=== PATIENT | male | born 1960 | race Caucasian/White ===

== ENCOUNTER 2020-11-24 12:28 | Emergency (ER) | payer OTHER ==
--- OUTSIDE RECORDS SUMMARY | 2020-11-24 12:31 | XMS REPORT | Continuity of Care Document ---
:1960 Author Organization [facility] t Address [address] [place] [address] Care Team Providers Name Role Phone Unavailable Unavailable Unavailable Problems Condition Condition Condition Status Onset Resolution Last Treating Co mments Source Name Details Category Date Date Treatment Clinician Date Chronic Chronic Problem Active [facility] pain Pain 2-11 Family 00:00: Practic 00 e Diabetes Diabetes Problem Active Hooker ge mellitus Mellitus 2-09 Family 00:00: Practic 00 e Senile Senile Problem Active [facility] purpura Purpura 1-12 Family 00:00: Practic 00 e Neuropathy Neuropathy Problem Active [facility] due to Due to 4-20 Family diabetes Diabetes 00:00: Practi c mellitus Mellitus 00 e Recurrent Recurrent Problem Active Alexander 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 Depressive 00:00: Pr actic episodes, Episodes, 00 e moderate Moderate Essential Essential Problem Active Alexander kimball hypertensi Hypertensi 2-06 Fa deanna on on 00:00: Practic 00 e Gastroesop Gastroesop Problem Active [facility] hageal hageal 2-06 Family reflux Reflux 00:00: Practic disease Disease 00 e Benign Benign Problem Active [facility] prostatic Prostatic 2-06 Fami ly hyperplasi Hyperplasi 00:00: Pr actic a a 00 e Chronic Chronic Problem Active [facility] low back Low Back 2-06 Family pain Pain 00:00: Practic 00 e Vertigo Vertigo Problem Active [place] 2-06 Family 00:00: Practic 00 e Hyperlipid Hyperlipid Problem Active [facility] emia due emia Due 2-06 Family to type 2 to Type 2 00:00: Prac tic diabetes Diabetes 00 e mellitus Mellitus Hypertensi Hypertensi Problem Active [facility] ve ve 8-03 Family disorder Disorder 00:00: Practi c 00 e Allergies, Adverse Reactions, Alerts Allergy Allergy Status Severity Reaction(s) Onset Inactive Treating Comm ents Source Name Type Date Date Clinician Iodine Allergy Active Severe Anaphylaxis Vill age to 1-03 Family substanc 00:00: Practic e 00 e Iodine Adverse Active Info Not [facility] Reaction Available [facility] Social History Smoking Status Start Date Stop Date Source Former Smoker [facility] Medications Ordered Filled Start Stop Current Ordering Indication Dosage Frequency Signature Comments Components Source Medication Medication Date Date Medication? Clinician (SIG) Name Name MetFORMIN MetFORMIN Yes Robert [address] [facility] HCl ER HCl ER 7-29 Don with meals Luke s - 00:00: [facility] 00 [facility] Fenofibrate Fenofibrate Yes Robert not [facility] Don defined [facility] Losartan Losartan Yes Robert not [facility] Potassium Potassium Don defined [facility] Hydrocodone Hydrocodone Yes Robert not [facility] -Acetaminop -Acetaminop Don defined [facility] fenofibrate fenofibrate No 1 Q1D fenofibrat [facility] 160 mg 160 mg e 160 mg [facility] tablet Take tablet Take tablet Practic 1 tablet 1 tablet Take 1 e every day every day tablet by oral by oral every day route. route. by oral route. fentanyl fentanyl No fentanyl Alexander jigar (PF) 10 (PF) 10 (PF) 10 Family mcg/mL in mcg/mL in mcg/mL in Practic 0.9 % 0.9 % 0.9 % e sodium sodium sodium chloride chloride chloride inject.pump inject.pump inject.pum reservoir reservoir p Take by Take by reservoir injection injection Take by route. route. injection route. Levemir Levemir No 60unit( Levemir Alexander jigar FlexTouch FlexTouch s) FlexTouch Family U-100 U-100 U-100 Practic Insulin 100 Insulin 100 Insulin e unit/mL (3 unit/mL (3 100 mL) mL) unit/mL (3 subcutaneou subcutaneou mL) s pen s pen subcutaneo Inject 60 Inject 60 us pen units by units by Inject 60 subcutaneou subcutaneou units by s route. s route. subcutaneo us route. losartan 50 losartan 50 No 1 Q1D losartan [place] mg tablet mg tablet 50 mg Fami ly Take 1 Take 1 tablet Practic tablet tablet Take 1 e every day every day tablet by oral by oral every day route. route. by oral route. meclizine meclizine No 1 TID meclizine [facility] 25 mg 25 mg 25 mg Family tablet Take tablet Take tablet Practic 1 tablet 3 1 tablet 3 Take 1 e times a day times a day tablet 3 by oral by oral times a route. route. day by oral route. meloxicam meloxicam No 1 Q1D meloxicam [facility] 15 mg 15 mg 15 mg Family tablet Take tablet Take tablet Practic 1 tablet 1 tablet Take 1 e every day every day tablet by oral by oral every day route as route as by oral needed. needed. route as needed. [place] 325 [place] 325 No 1 Q6H [place] 325 [place] mg-7.5 mg mg-7.5 mg mg-7.5 mg Family tablet Take tablet Take tablet Practic 1 tablet 1 tablet Take 1 e every 6 every 6 tablet hours by hours by every 6 oral route. oral route. hours by oral route. pantoprazol pantoprazol No 1 Q1D pantoprazo [place] e 40 mg e 40 mg le 40 mg Famil y tablet,catherine tablet,catherine tablet,del Practic yed release yed release ayed e Take 1 Take 1 release tablet tablet Take 1 every day every day tablet by oral by oral every day route. route. by oral route. pravastatin pravastatin No 1 Q1D pravastati [facility] 40 mg 40 mg n 40 mg Family tablet Take tablet Take tablet Practic 1 tablet 1 tablet Take 1 e every day every day tablet by oral by oral every day route. route. by oral route. pregabalin pregabalin No 1capsul TID pregabalin [facility] 50 mg 50 mg e(s) 50 mg Family capsule capsule capsule Practi c Take 1 Take 1 Take 1 e capsule 3 capsule 3 capsule 3 times a day times a day times a by oral by oral day by route. route. oral route. sertraline sertraline No 1 Q1D sertraline [facility] 100 mg 100 mg 100 mg Family tablet Take tablet Take tablet Practic 1 tablet 1 tablet Take 1 e every day every day tablet by oral by oral every day route. route. by oral route. tamsulosin tamsulosin No 1capsul Q1D tamsulosin [place] 0.4 mg 0.4 mg e(s) 0.4 mg Family capsule capsule capsule Practi c Take 1 Take 1 Take 1 e capsule capsule capsule every day every day every day by oral by oral by oral route. route. route. Iona Monson No 1.8mg Gideonjohngenie [place] ge 3-Irvin 0.6 3-Irvin 0.6 3-Irvin 0.6 Family mg/0.1 mL mg/0.1 mL mg/0.1 mL Practic (18 mg/3 (18 mg/3 (18 mg/3 e mL) mL) mL) subcutaneou subcutaneou subcutaneo s pen s pen us pen injector injector injector Inject 1.8 Inject 1.8 Inject 1.8 mg by mg by mg by subcutaneou subcutaneou subcutaneo s route s route us route before before before meals. meals. meals. Pregabalin Pregabalin Yes Robert [address] [facility] Losartan Losartan Yes Robert TAKE [address] [facility] Potassium Potassium Don TABLET(50 [facility] - MG) BY [facility] MOUTH l DAILY Out[facility]i ent Clinics Meloxicam Meloxicam Yes Robert TAKE [address] Don TABLET BY [facility] M[facility]TH ONCE [facility] A DAY l Outpati ent Clinics Pantoprazol Pantoprazol Yes Robert TAKE [address] [facility] e Sodium e Sodium Don TABLET(40 L ukes - MG) BY Memoria MOUTH l TWICE Outpati DAILY ent Clinics Victoza Victoza Yes Robert not [facility] Don defined [facility] Tamsulosin Tamsulosin Yes Robert not [facility] HCl HCl Don defined [facility] Fenofibrate Fenofibrate Yes Robert TAKE [address] [facility] Don TABLET(160 [facility] - MG) BY Memoria MOUTH l DAILY WITH Outpati A MEAL ent Clinics Tamsulosin Tamsulosin Yes Robert TAKE [address] [facility] HCl HCl Don CAPSULE BY [facility] M[facility]TH [facility] EVERY DAY l Outpati ent Clinics Morphine Morphine Yes [facility] as [facility] Sulfate Sulfate Don directed [facility] Levemir Levemir Yes Robert as [facility] FlexTouch FlexTouch Don directed [facility] Sertraline Sertraline Yes Robert not [facility] HCl HCl Don defined [facility] Meclizine Meclizine Yes Robert not [facility] HCl HCl Don defined [facility] Pantoprazol Pantoprazol Yes Robert not [facility] e Sodium e Sodium Don defined [facility] Pravastatin Pravastatin Yes Robert not [facility] Sodium Sodium Don defined [facility] Meloxicam Meloxicam Yes Robert not [facility] Don defined [facility] Immunizations Ordered Immunization Filled Immunization Date Status Commen ts Source Name Name influenza, influenza, 2018-09-12 [facility] injectable, injectable, 00:00:00 Practice quadrivalent quadrivalent Procedures This patient has no known procedures. Plan of Care Planned Activity Planned Date Details Comments Source Future Appointment 2021-01-19 00:00:00 [facility] [address]; [address] [address], [place] [id number] [place] [address] Encounters Start End Encounter Admission Attending Care Care Encounter Source Date/Time Date/Time Type Type Clinicians Facility Department ID 2020-11-05 2020-11-05 [facility] [id number] 2020-10-21 2020-10-21 Blanquita [facility] [place] - [id number] [facility] illage 00:00:00 00:00:00 [facility] cheryl o, 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 2020-10-21 2020-10-21 Outpatient [facility] [id number] [facility] 2020-08-22 2020-08-22 Out[facility] [id number] [facility] 2020-08-04 2020-08-04 Out[facility] [id number] [facility] 2020-07-16 2020-07-16 Out[facility] [id number] [facility] 2020-07-10 2020-07-10 Out[facility] [id number] [facility] 2020-06-25 2020-06-25 Outpatient [facility] [id number] [facility] 2020-06-16 2020-06-16 [facility] [id number] [facility] 2020-04-10 2020-04-10 [facility] [id number] [facility] 13:26:00 13:26:00 t [employer] [facility] Family Medicine l Medicine Outpati ent Clinics 2020-04-09 2020-04-09 [facility] [id number] 10:15:00 10:15:00 t [employer] [facility] Family Medicine l Medicine Outpati ent Clinics 2020-02-19 2020-02-19 [facility] [id number] 10:18:00 10:18:00 t [employer] [facility] Family Medicine l Medicine Outpati ent Clinics 2020-02-11 2020-02-11 [facility] [id number] 09:41:00 09:41:00 t [employer] [facility] Medicine l Medicine Outpati ent Clinics 2020-01-24 2020-01-24 [facility] [id number] 11:35:00 11:35:00 t [employer] 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 2019-12-11 2019-12-11 [facility] [id number] 09:00:00 09:00:00 [employer] [facility] Clinics Results This patient has no known results.
[2020-11-24] MEDS ORDERED: NA CHLORIDE 0.9% 500 ML ONE (15:01)
[2020-11-24] MEDS ORDERED: MORPHINE 4 MG/ML SYR ONE ×2 (15:01→16:19)
[2020-11-24] MEDS ORDERED: ONDANSETRON 4 MG/2 ML VIAL ONE (15:01)
[2020-11-24 15:37] LABS: Absolute Lymphocytes (CBC) 1.3 K/uL (0.7-4.9); Basophils % 0.4 % (0-1.3); Hematocrit 34.1 % (39.6-49.0); Lymphocytes % 15.9 % (15.3-44.8); MPV 9.3 fL (7.6-11.3); RBC Red Blood Cell Count 3.84 M/uL (4.33-5.43)
[2020-11-24 15:49] LABS: ALT/SGPT 33 U/L (12-78); AST/SGOT 31 U/L (15-37); Albumin 3.6 g/dL (3.4-5.0); Alkaline Phosphatase 54 U/L (45-117); BUN Blood Urea Nitrogen 25 mg/dL (7-18); Bicarbonate 24 mmol/L (21-32); Bilirubin Direct < 0.1 mg/dL (0-0.2); Bilirubin Total 0.2 mg/dL (0.2-1.0); Glucose Level 125 mg/dL (74-106); Lipase 150 U/L (73-393); Potassium 4.7 mmol/L (3.5-5.1); Protein, Total 7.7 g/dL (6.4-8.2); Sodium Level 142 mmol/L (136-145)
--- NOTE | 2020-11-24 17:52 | RAD REPORT ---
EXAM DESCRIPTION: CT - Abdomen Pelvis Wo Contrast - 11/24/2020 5:16 pm CLINICAL HISTORY: Abdominal pain COMPARISON: 2014 TECHNIQUE: Computed axial tomography of the abdomen and pelvis was obtained. IV was not requested. O ral contrast was given. Coronal reconstructions performed. All CT scans are performed using dose optimization technique as appropriate and may include automated exposure control or mA/KV adjustment according to patient size. FINDINGS: The evaluation of solid organs and vessels is limited secondary to the lack of contrast a dministration. The liver, spleen, pancreas, adrenals and right kidney grossly normal. A 2 millimeter calculus distal left ureter with mild left hydronephrosis Neurostimulator device in place Diverticula stem from the colon. Mild to moderate stranding adjacent to sigmoid colon Small inguinal hernias. Small umbilical hernia IMPRESSION: 2 millimeter calculus distal left ureter resulting in mild left hydronephrosis Mild to moderate sigmoid diverticulitis
--- NOTE | 2020-11-24 18:48 | EDPHYS ---
Physician Documentation [facility] Name: Vikash Forbes Jr Age: 60 yrs Sex: Male : 1960 Arrival Date: 11/24/2020 Time: 12:31 Bed 26 Private MD: Arian Counts Include 234 Beds At [facility] ED Physician Evan Turcios HPI: 11/24 14:30 This 60 yrs old Male presents to ER via Wheelchair with complaints of cp Abdominal Pain. 14:30 The patient presents with abdominal pain in the left upper quadrant, right lower cp quadrant, in the left lower quadrant. Onset: The symptoms/episode began/occurred 4 day(s) ago, and became worse today. The symptoms radiate to left back. Associated signs and symptoms: Pertinent positives: blood in stools, diarrhea, Pertinent negatives: constipation, testicular pain, vomiting. The symptoms are described as dull. Historical: - Allergies: 13:34 Iodex; ca1 13:34 Iodinated Contrast Media - IV Dye; ca1 - PMHx: 13:34 Hypertension; Diabetes - IDDM; back pain; lymphadema; ca1 13:34 High Cholesterol; ca1 - PSHx: 13:34 Heart stents; ca1 - Immunization history:: Flu vaccine is not up to date. - Social history:: Smoking status: Patient denies any tobacco usage or history of. ROS: 14:35 Constitutional: Negative for body aches, chills, fever, poor PO intake. cp 14:35 Eyes: Negative for injury, pain, redness, and discharge. cp 14:35 ENT: Negative for ear pain, sore throat, difficulty swallowing, difficulty handling secretions. 14:35 Cardiovascular: Negative for chest pain. 14:35 Respiratory: Negative for cough, shortness of breath, wheezing. 14:35 Abdomen/GI: Positive for abdominal pain, diarrhea, rectal bleeding, Negative for vomiting, constipation, black/tarry stool. 14:35 Back: Positive for radiated pain. 14:35 : Negative for urinary symptoms, testicular pain 14:35 Neuro: Negative for altered mental status, headache, weakness. 14:35 All other systems are negative. Exam: 14:40 Constitutional: The patient appears in no acute distress, alert, awake, cp non-diaphoretic, non-toxic, well developed, well nourished. 14:40 Head/Face: Normocephalic, atraumatic. cp 14:40 Eyes: Periorbital structures: appear normal, Conjunctiva: normal, no exudate, no injection, Sclera: no appreciated abnormality, Lids and lashes: appear normal, bilaterally. 14:40 ENT: External ear(s): are unremarkable, Nose: is normal, Mouth: Lips: moist, Oral mucosa: moist, Posterior pharynx: Airway: no evidence of obstruction, patent. 14:40 Chest/axilla: Inspection: normal, Palpation: is normal, no crepitus, no tenderness. 14:40 Cardiovascular: Rate: normal, Rhythm: regular, JVD: is not appreciated. 14:40 Respiratory: the patient does not display signs of respiratory distress, Respirations: normal, no use of accessory muscles, no retractions, labored breathing, is not present, Breath sounds: are clear throughout, no decreased breath sounds, no stridor, no wheezing. 14:40 Abdomen/GI: Inspection: scar(s), midline, Bowel sounds: active, all quadrants, Palpation: soft, in all quadrants, moderate abdominal tenderness, in all quadrants, rebound tenderness, is not appreciated, voluntary guarding, is elicited in all quadrants. 14:40 Back: pain, that is mild, ROM is normal. 14:40 Skin: no rash present. Vital Signs: 13:30 BP 117 / 79; Pulse 77; Resp 16 S; Temp 97.6(TE); Pulse Ox 100% on R/A; Weight 99.79 kg ca1 (R); Height 5 ft. 11 in. (180.34 cm) (R); Pain 10/10; 14:00 BP 137 / 84; Pulse 87; Resp 16; Pulse Ox 100% ; zb 15:00 BP 148 / 95; Pulse 87; Resp 17; Pulse Ox 100% on R/A; zb 15:54 BP 122 / 63; Pulse 79; Resp 16; Pulse Ox 100% on R/A; zb 17:30 BP 153 / 98; Pulse 83; Resp 16; Pulse Ox 100% on R/A; zb 18:59 BP 130 / 84; Pulse 73; Resp 16; Pulse Ox 100% on R/A; zb 19:30 BP 125 / 87; Pulse 87; Resp 16; Pulse Ox 100% on R/A; zb 20:46 BP 108 / 83; Pulse 86; Resp 16; Pulse Ox 100% on R/A; zb 13:30 Body Mass Index 30.68 (99.79 kg, 180.34 cm) ca1 MDM: 14:22 Patient medically screened. cp 15:00 Differential diagnosis: diverticulitis, non-specific abd pain, pancreatitis, cp Prostatitis, Ureterolithiasis, urinary tract infection. 18:39 Data reviewed: vital signs, nurses notes, lab test result(s), radiologic studies, CT cp scan. Counseling: I had a detailed discussion with the patient and/or guardian regarding: the historical points, exam findings, and any diagnostic results supporting the discharge/admit diagnosis, lab results, radiology results, the need for outpatient follow up, a professor of management, a urologist, to return to the emergency department if symptoms worsen or persist or if there are any questions or concerns that arise at home. 11/24 14:23 Order name: Basic Metabolic Panel cp 11/24 14:23 Order name: CBC with Diff; Complete Time: 15:53 cp 11/24 15:54 Interpretation: Normal except: RBC 3.84; HGB 11.6; HCT 34.1; GARY% 78.3. cp 11/24 14:23 Order name: Hepatic Function; Complete Time: 15:53 cp 11/24 15:54 Interpretation: Normal except: GLOB 4.1; A/G 0.9. cp 11/24 14:23 Order name: Lipase; Complete Time: 15:53 cp 11/24 14:24 Order name: Basic Metabolic Panel; Complete Time: 15:53 EDMS 11/24 15:54 Interpretation: Normal except: CL 111; GLUC 125; BUN 25; CRE 1.50; GFR 48. cp 11/24 18:07 Order name: Urine Microscopic Only cp 11/24 14:48 Order name: Abdomen ; Complete Time: 18:04 EDMS 11/24 18:07 Order name: Urine Microscopic Only EDMS 11/24 14:23 Order name: IV Saline Lock; Complete Time: 15:01 cp 11/24 14:23 Order name: Labs collected and sent; Complete Time: 15:01 cp 11/24 18:07 Order name: Urine Dipstick-Ancillary (obtain specimen); Complete Time: 20:45 cp Administered Medications: 15:01 Drug: NS 0.9% 500 ml Route: IV; Rate: bolus; Site: right antecubital; zb 15:52 Follow up: Response: No adverse reaction; IV Status: Completed infusion; IV Intake: zb 500ml 15:01 Drug: Zofran (Ondansetron) 4 mg Route: IVP; Site: right antecubital; zb 15:53 Follow up: Response: No adverse reaction zb 15:01 Drug: morphine 4 mg Route: IVP; Site: right antecubital; zb 15:53 Follow up: Response: No adverse reaction; Pain is unchanged, physician notified; RASS: zb Restless (+1) 16:07 Drug: morphine 4 mg {Note: rass 0.} Route: IVP; Site: right antecubital; zb 16:30 Follow up: Response: No adverse reaction; Pain is decreased; RASS: Alert and Calm (0) zb 18:57 Drug: metroNIDAZOLE 500 mg Volume: 100 ml; Route: IVPB; Infused Over: 30 mins; Site: b right antecubital; 19:28 Follow up: Response: No adverse reaction; IV Status: Completed infusion; IV Intake: zb 100ml 18:57 Drug: Rocephin - (cefTRIAXone) 1 grams Route: IVPB; Infused Over: 30 mins; Site: right zb antecubital; 19:20 Follow up: Response: No adverse reaction; IV Status: Completed infusion; IV Intake: 20mlzb 18:58 Drug: Flomax 0.4 mg Route: PO; zb 19:28 Follow up: Response: No adverse reaction zb 19:27 Drug: Magnesium Sulfate 1 grams Route: IVPB; Infused Over: 1 hrs; Site: right z antecubital; 20:45 Follow up: Response: No adverse reaction; IV Status: Completed infusion; IV Intake: zb 100ml Disposition: 11/25 09:42 Co-signature as Attending Physician, Evan Turcios MD I agree with the assessment and ross plan of care. Disposition: 11/24/20 18:48 Discharged to Home. Impression: Calculus of ureter - left, Diverticulitis of large intestine without perforation or abscess with bleeding. - Condition is Stable. - Discharge Instructions: High-Fiber Diet, Diverticulitis, Kidney Stones, Renal Colic. - Prescriptions for Tylenol- Codeine #3 300-30 mg Oral Tablet - take 2 tablets by ORAL route every 8-12 hours As needed; 20 tablet. Zofran 4 mg Oral Tablet - take 1 tablet by ORAL route every 12 hours As needed; 20 tablet. Flomax 0.4 mg Oral Capsule, Sust. Release 24 hr - take 1 capsule by ORAL route once daily As needed 1/2 hour following the same meal each day; 5 capsule. Cipro 500 mg Oral Tablet - take 1 tablet by ORAL route every 12 hours for 10 days; 20 tablet. Metronidazole 500 mg Oral Tablet - take 1 tablet by ORAL route every 8 hours; 30 tablet. - Medication Reconciliation Form, Thank You Letter, Antibiotic Education, Prescription Opioid Use form. - Follow up: Anjum Bob MD; When: 2 - 3 days; Reason: diverticulitis. Follow up: Mitesh Gordillo MD; When: 2 - 3 days; Reason: left ureter stone. - Problem is new. - Symptoms have improved. Signatures: Dispatcher [employer] [facility] Evan Turcios MD MD cha Page, Corey, PA PA cp Acob, Cheryl, RN RN ca1 Brown, Zipporah, RN RN zb Corrections: (The following items were deleted from the chart) 11/24 14:48 14:40 Abdomen Pelvis W Con+[id number].RAD.BRZ ordered. [facility] 20:47 18:48 11/24/2020 18:48 Discharged to Home. Impression: Calculus of ureter - left; zb Diverticulitis of large intestine without perforation or abscess with bleeding. Condition is Stable. Forms are Medication Reconciliation Form, Thank You Letter, Antibiotic Education, Prescription Opioid Use. Follow up: Anjum Bob; When: 2 - 3 days; Reason: diverticulitis. Follow up: Mitesh Gordillo; When: 2 - 3 days; Reason: left ureter stone. Problem is new. Symptoms have improved. cp
--- NOTE | 2020-11-24 18:48 | ER ---
Nurse's Notes [facility] Name: Vikash Forbes Jr Age: 60 yrs Sex: Male : 1960 Arrival Date: 11/24/2020 Time: 12:31 Bed 26 Private MD: Robert Don Diagnosis: Calculus of ureter-left;Diverticulitis of large intestine without perforation or abscess with bleeding Presentation: 11/24 13:30 Chief complaint: Patient states: Lower abdominal pain, from L to R, x 3 - 4 days [employer]. ca1 Worse since 2 days ago. Denies N/V/D. Pain is constant. Pt grimacing, moaning in pain in triage. Coronavirus screen: Client denies travel out of the [place] in the last 14 days. At this time, the client does not indicate any symptoms associated with coronavirus-19. Ebola Screen: Patient negative for fever greater than or equal to 101.5 degrees Fahrenheit, and additional compatible Ebola Virus Disease symptoms Patient denies exposure to infectious person. Patient denies travel to an Ebola-affected area in the 21 days before illness onset. No symptoms or risks identified at this time. Initial Sepsis Screen: Does the patient meet any 2 criteria? No. Patient's initial sepsis screen is negative. Does the patient have a suspected source of infection? No. Patient's initial sepsis screen is negative. Risk Assessment: Do you want to hurt yourself or someone else? Patient reports no desire to harm self or others. Onset of symptoms was November 24, 2020. 13:30 Method Of Arrival: Wheelchair ca1 13:30 Acuity: ALMA 2 ca1 Historical: - Allergies: 13:34 Iodex; ca1 13:34 Iodinated Contrast Media - IV Dye; ca1 - PMHx: 13:34 Hypertension; Diabetes - IDDM; back pain; lymphadema; ca1 13:34 High Cholesterol; ca1 - PSHx: 13:34 Heart stents; ca1 - Immunization history:: Flu vaccine is not up to date. - Social history:: Smoking status: Patient denies any tobacco usage or history of. Screenin:58 Abuse screen: Denies threats or abuse. Denies injuries from another. Nutritional zb screening: No deficits noted. Tuberculosis screening: No symptoms or risk factors identified. Fall Risk None identified. Assessment: 14:15 Reassessment: ECP at bedside. zb 14:30 General: Appears in no apparent distress. uncomfortable, obese, Behavior is zb cooperative. Pain: Complains of pain in left upper quadrant and left lower quadrant Pain currently is 10 out of 10 on a pain scale. Quality of pain is described as aching, Noted to be grimacing, guarding. Neuro: Level of Consciousness is awake, alert, obeys commands, Oriented to person, place, time, situation. Cardiovascular: Patient's skin is warm and dry. Respiratory: Airway is patent Respiratory effort is even, unlabored, Respiratory pattern is regular, symmetrical. GI: Abdomen is round obese, Bowel sounds hypoactive in right upper quadrant, left upper quadrant, right lower quadrant and left lower quadrant Abdomen is tender to palpation in left upper quadrant and left lower quadrant Reports cramping, Patient currently denies diarrhea, nausea. : No signs and/or symptoms were reported regarding the genitourinary system. Derm: Skin is intact, is healthy with good turgor, Skin is dry, Skin is normal, Skin temperature is warm. Musculoskeletal: Range of motion: intact in all extremities. 15:57 Reassessment: Patient appears in no apparent distress at this time. Patient and/or zb family updated on plan of care and expected duration. Pain level reassessed. patient states he is still in a lot of pain. notified ECP. 16:30 Reassessment: Patient appears in no apparent distress at this time. Patient and/or zb family updated on plan of care and expected duration. Pain level reassessed. Patient is alert, oriented x 3, equal unlabored respirations, skin warm/dry/pink. patient is room not changes at this time. 17:30 Reassessment: Patient appears in no apparent distress at this time. Patient and/or zb family updated on plan of care and expected duration. Pain level reassessed. Patient is alert, oriented x 3, equal unlabored respirations, skin warm/dry/pink. ECP at bedside discussing care. 18:59 Reassessment: d/c pending completion of IV medications. zb 19:30 Reassessment: Patient appears in no apparent distress at this time. Patient and/or zb family updated on plan of care and expected duration. Pain level reassessed. Patient is alert, oriented x 3, equal unlabored respirations, skin warm/dry/pink. IV fluids infusing. 20:45 Reassessment: IV medication completed. d/c instructions given. gait even and steady zb upon discharge. Vital Signs: 13:30 BP 117 / 79; Pulse 77; Resp 16 S; Temp 97.6(TE); Pulse Ox 100% on R/A; Weight 99.79 kg ca1 (R); Height 5 ft. 11 in. (180.34 cm) (R); Pain 10/10; 14:00 BP 137 / 84; Pulse 87; Resp 16; Pulse Ox 100% ; zb 15:00 BP 148 / 95; Pulse 87; Resp 17; Pulse Ox 100% on R/A; zb 15:54 BP 122 / 63; Pulse 79; Resp 16; Pulse Ox 100% on R/A; zb 17:30 BP 153 / 98; Pulse 83; Resp 16; Pulse Ox 100% on R/A; zb 18:59 BP 130 / 84; Pulse 73; Resp 16; Pulse Ox 100% on R/A; zb 19:30 BP 125 / 87; Pulse 87; Resp 16; Pulse Ox 100% on R/A; zb 20:46 BP 108 / 83; Pulse 86; Resp 16; Pulse Ox 100% on R/A; zb 13:30 Body Mass Index 30.68 (99.79 kg, 180.34 cm) ca1 ED Course: 12:31 Patient arrived in ED. am2 12:32 Robert Don DO is Private Physician. am2 13:32 Triage completed. ca1 13:34 Arm band placed on right wrist. ca1 14:09 Evan Johnson PA is PHCP. cp 14:09 Evan Turcios MD is Attending Physician. cp 14:15 Linn Degroot, WENDY is Primary Nurse. zb 15:59 Patient has correct armband on for positive identification. 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 Pulse zb ox on. NIBP on. Door closed. Noise minimized. 15:59 Bed in low position. Call light in reach. Side rails up X 1. zb 17:16 Abdomen In Process Unspecified. EDMS 18:47 Anjum Bob MD is Referral Physician. cp 18:47 Mitesh Gordillo MD is Referral Physician. cp 20:47 No provider procedures requiring assistance completed. IV discontinued, intact, zb bleeding controlled, No redness/swelling at site. Pressure dressing applied. Administered Medications: 15:01 Drug: NS 0.9% 500 ml Route: IV; Rate: bolus; Site: right antecubital; zb 15:52 Follow up: Response: No adverse reaction; IV Status: Completed infusion; IV Intake: zb 500ml 15:01 Drug: Zofran (Ondansetron) 4 mg Route: IVP; Site: right antecubital; zb 15:53 Follow up: Response: No adverse reaction zb 15:01 Drug: morphine 4 mg Route: IVP; Site: right antecubital; zb 15:53 Follow up: Response: No adverse reaction; Pain is unchanged, physician notified; RASS: zb Restless (+1) 16:07 Drug: morphine 4 mg {Note: rass 0.} Route: IVP; Site: right antecubital; zb 16:30 Follow up: Response: No adverse reaction; Pain is decreased; RASS: Alert and Calm (0) zb 18:57 Drug: metroNIDAZOLE 500 mg Volume: 100 ml; Route: IVPB; Infused Over: 30 mins; Site: zb right antecubital; 19:28 Follow up: Response: No adverse reaction; IV Status: Completed infusion; IV Intake: zb 100ml 18:57 Drug: Rocephin - (cefTRIAXone) 1 grams Route: IVPB; Infused Over: 30 mins; Site: right zb antecubital; 19:20 Follow up: Response: No adverse reaction; IV Status: Completed infusion; IV Intake: 20mlzb 18:58 Drug: Flomax 0.4 mg Route: PO; zb 19:28 Follow up: Response: No adverse reaction zb 19:27 Drug: Magnesium Sulfate 1 grams Route: IVPB; Infused Over: 1 hrs; Site: right zb antecubital; 20:45 Follow up: Response: No adverse reaction; IV Status: Completed infusion; IV Intake: zb 100ml Intake: 15:52 IV: 500ml; Total: 500ml. zb 19:20 IV: 20ml; Total: 520ml. zb 19:28 IV: 100ml; Total: 620ml. zb 20:45 IV: 100ml; Total: 720ml. zb Outcome: 18:48 Discharge ordered by . cp 20:47 Discharged to home ambulatory. zb 20:47 Condition: stable 20:47 Discharge instructions given to patient, Instructed on discharge instructions, follow up and referral plans. medication usage, Demonstrated understanding of instructions, follow-up care, medications, Prescriptions given X 4. 20:47 Patient left the ED. zb Signatures: Dispatcher [employer] EDMS Evan Johnson PA PA cp Moreno, Amanda am2 Mary Sutherland RN RN ca1 Linn Degroot RN RN zb Corrections: (The following items were deleted from the chart) 16:07 16:07 morphine 4 mg IVP in right antecubital zb zb
[2020-11-24] MEDS ORDERED: CEFTRIAXONE/SWI 1gm 1 GM/10 ML SYR ONE (18:59)
[2020-11-24] MEDS ORDERED: TAMSULOSIN 0.4 MG SR CAP ONE (18:59)
[2020-11-24] MEDS ORDERED: METRONIDAZOLE 500mg IVPB 500 MG/100 ML BAG IV ONE (18:59)
[2020-11-24] MEDS ORDERED: MAGNESIUM SULFATE 1 gm IVPB 1 GM/100 ML BAG IV ONE (18:59)
[2020-11-24 21:51] LABS: Urine Bacteria NONE SEEN /HPF (NONE SEEN); Urine RBC <5 /HPF (NONE SEEN)
[2020-11-25 01:21] VITALS: TEMP 97.6; O2SAT 100
[2020-11-25 01:34] VITALS: BP 108/83
== END 2020-11-24 20:47 | disposition home or self-care (01) ==
LOC: ER 12:28
DX: N13.2 Hydronephrosis with renal and ureteral calculous obstruction (principal); K57.33 Diverticulitis of large intestine without perforation or abscess with bleeding; E11.9 Type 2 diabetes mellitus without complications; Z79.4 Long term (current) use of insulin; I10 Essential (primary) hypertension; E78.00 Pure hypercholesterolemia, unspecified; Z95.5 Presence of coronary angioplasty implant and graft
CPT/HCPCS: 85025; 80048; 36415; 80076; 81015; 83690; 74176; J3475; J0696; J7040; J2405; 96361; 96365; 96367; 96368; 96375; 99284

== ENCOUNTER 2022-06-13 12:54 | Emergency (ER) | payer OTHER ==
--- OUTSIDE RECORDS SUMMARY | 2022-06-13 12:57 | XMS REPORT | Continuity of Care Document ---
:1960 Author Organization [facility] t Address [address] [place] [address] Care Team Providers Name Role Phone Allyn Sanchez Attending Clinician Unavailable Arturo Riggs Attending Clinician Unavailable Robert Don Attending Clinician Unavailable Cleveland Arreaga Attending Clinician Unavailable Buddy_R Attending Clinician Unavailable GAYLORD_S Attending Clinician Unavailable Rashmi-Mbayo_A_AH Attending Clinician Unavailable Physician, No Primary or Family Admitting Clinician Unavaila ble Adams_R Admitting Clinician Unavailable GAYLORD_S Admitting Clinician Unavailable Rashmi-Mbayo_A_AH Admitting Clinician Unavailable Payers Payer Name Policy Type Policy Number Effective Date Expiration Date S katharina [facility] [id number] 2021 (MEDICARE 00:00:00 REPLACEMENT HMO) [employer] [place] - [id number] 2019 AMBROCIOMARIA E (MEDICARE 00:00:00 REPLACEMENT/ADVANTA GE - HMO) Problems Condition Condition Condition Status Onset Resolution Last Treating Co mments Source Name Details Category Date Date Treatment Clinician Date Chronic Chronic Problem Active [place] pain Pain 2-11 Family 00:00: Practic 00 e Diabetes Diabetes Problem Active [place] [facility] mellitus Mellitus 2-09 Family 00:00: Practic 00 e Senile Senile Problem Active [facility] purpura Purpura 1-12 Family 00:00: Practic 00 e Neuropathy Neuropathy Problem Active [place] [facility] due to Due to 4-20 Family diabetes Diabetes 00:00: Practi c mellitus Mellitus 00 e Benign Benign Problem Active [facility] prostatic Prostatic 2-06 Fami ly hyperplasi Hyperplasi 00:00: Pr actic a a 00 e Chronic Chronic Problem Active [facility] low back Low Back 2-06 Family pain Pain 00:00: Practic 00 e Vertigo Vertigo Problem Active [facility] 2-06 Family 00:00: Practic 00 e Hyperlipid Hyperlipid Problem Active [facility] emia due emia Due 2-06 Family to type 2 to Type 2 00:00: Prac tic diabetes Diabetes 00 e mellitus Mellitus Recurrent Recurrent Problem Active Alexander 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 Depressive 00:00: Pr actic episodes, Episodes, 00 e moderate Moderate Essential Essential Problem Active Alexander kimball hypertensi Hypertensi 2-06 Fa deanna on on 00:00: Practic 00 e Gastroesop Gastroesop Problem Active [facility] hageal hageal 2-06 Family reflux Reflux 00:00: Practic disease Disease 00 e Hypertensi Hypertensi Problem Active [facility] ve ve 8-03 Family disorder Disorder 00:00: Practi c 00 e Allergies, Adverse Reactions, Alerts Allergy Allergy Status Severity Reaction(s) Onset Inactive Treating Comm ents Source Name Type Date Date Clinician iodine DA Active SV RASH,SOB [facility] 3-07 Clear 00:00: [place] 00 [facility] Iodine Allergy Active Severe Anaphylaxis Vill age to 1-03 Family substanc 00:00: Practic e 00 e Iodine Adverse Active Info Not [facility] Smoking Status Start Date Stop Date Source Former [facility]oker [facility] Medications Ordered Filled Start Stop Current Ordering Indication Dosage Frequency Signature Comments Components Source Medication Medication Date Date Medication? Clinician (SIG) Name Name MetFORMIN MetFORMIN Yes Robert 2 tabs Common HCl ER HCl ER 7-29 Don with meals Spir it 00:00: - [facility] Pregabalin Pregabalin Yes Robert 1 capsule Common Don [facility] Losartan Losartan Yes Robert TAKE 1 Com mon Potassium Potassium Don TABLET(50 Spirit MG) BY - [facility] DAILY [facility] Meloxicam Meloxicam Yes Robert TAKE 1 C ommon Don TABLET BY Spirit MOUTH ONCE - [facility] A DAY [facility] Pantoprazol Pantoprazol Yes Robert TAKE 1 Common e Sodium e Sodium Don TABLET(40 S pirit MG) BY - [facility] TWICE [facility] Victoza Victoza Yes Robert not Common Don defined [facility] Tamsulosin Tamsulosin Yes Robert not C ommon HCl HCl Don defined [facility] Fenofibrate Fenofibrate Yes Robert TAKE 1 Common Don TABLET(160 Spirit MG) BY - [facility] DAILY WITH [facility] A [facility] Tamsulosin Tamsulosin Yes Robert TAKE 1 Common HCl HCl Don CAPSULE BY [facility] - [facility] EVERY DAY [facility] Morphine Morphine Yes Robert as Commo n Sulfate Sulfate Don directed Spir it [facility] Levemir Levemir Yes Robert as Common FlexTouch FlexTouch Don directed [facility] Sertraline Sertraline Yes Robert not C ommon HCl HCl Don defined [facility] Meclizine Meclizine Yes Robert not Com mon HCl HCl Don defined [facility] Pantoprazol Pantoprazol Yes Robert not Common e Sodium e Sodium Don defined Spi rit [facility] Pravastatin Pravastatin Yes Robert not Common Sodium Sodium Don defined [facility] Meloxicam Meloxicam Yes Robert not Com mon Don defined [facility] Fenofibrate Fenofibrate Yes Robert not Common Don defined [facility] Losartan Losartan Yes Robert not Commo n Potassium Potassium Don defined pirit [facility] Hydrocodone Hydrocodone Yes Robert not Common -Acetaminop -Acetaminop Don defined [facility] hen hen [facility] fenofibrate fenofibrate No 1 Q1D fenofibrat [facility] 160 mg 160 mg e 160 mg Family tablet Take tablet Take tablet Practic 1 tablet 1 tablet Take 1 e every day every day tablet by oral by oral every day route. route. by oral route. fentanyl fentanyl No fentanyl Alexander kimball (PF) 10 (PF) 10 (PF) 10 Family [...] route. meclizine meclizine No 1 TID meclizine [facility] 25 mg 25 mg 25 mg Family tablet Take tablet Take tablet Practic 1 tablet 3 1 tablet 3 Take 1 e times a day times a day tablet 3 by oral by oral times a route. route. day by oral route. meloxicam meloxicam No 1 Q1D meloxicam [facility] 15 mg 15 mg 15 mg Family tablet Take tablet Take tablet Practic 1 tablet 1 tablet Take 1 e every day every day tablet by oral by oral every day route as route as by oral needed. needed. route as needed. [place] 325 [place] 325 No 1 Q6H [place] 325 [place] mg-7.5 mg mg-7.5 mg mg-7.5 [...] route. pravastatin pravastatin No 1 Q1D pravastati [facility] 40 mg 40 mg n 40 mg Family tablet Take tablet Take tablet Practic 1 tablet 1 tablet Take 1 e every day every day tablet by oral by oral every day route. route. by oral route. pregabalin pregabalin No 1capsul TID pregabalin [facility] 50 mg 50 mg e(s) 50 mg Family capsule capsule capsule Practi c Take 1 Take 1 Take 1 e capsule 3 capsule 3 capsule 3 times a day times a day times a by oral by oral day by route. route. oral route. sertraline sertraline No 1 Q1D sertraline [facility] 100 mg 100 mg 100 mg Family tablet Take tablet Take tablet Practic 1 tablet 1 tablet Take 1 e every day every day tablet by oral by oral every day route. route. by oral route. tamsulosin tamsulosin No 1capsul Q1D tamsulosin [facility] 0.4 mg 0.4 mg e(s) 0.4 mg Family capsule capsule capsule Practi c Take 1 Take 1 Take 1 e capsule capsule capsule every day every day every day by oral by oral by oral route. route. route. Victoza Victoza No 1.8mg Victoza [place] [facility] 3-Irvin 0.6 3-Irvin 0.6 3-Irvin [...] route before before before meals. meals. meals. Immunizations Ordered Immunization Filled Immunization Date Status Commen ts Source Name Name influenza, influenza, 2018-09-12 Completed [facility] injectable, injectable, 00:00:00 Practice quadrivalent quadrivalent Procedures This patient has no known procedures. Plan of Care Planned Activity Planned Date Details Comments Source Instructions [facility] Encounters Start End Encounter Admission Attending Care Care Encounter Source Date/Time Date/Time Type Type Clinicians Facility Department ID 2021-11-05 Outpatient Sanchez, STLMLC STLMLC [id number] Common 14:09:01 Allyn Sp[facility] 2021-10-07 Outpatient Keely, STLMLC STLMLC Common 13:23:55 Arturo [facility] 2021-10-07 Outpatient Don, STLMLC STLMLC [id number] Common 13:01:37 Robert [id number] [facility] 2021-10-07 Outpatient Don, STLMLC STLMLC [id number] Common 12:59:20 Robert 60433 [facility] 2021-10-07 Outpatient Don, STLMLC STLMLC [id number] Common 12:53:43 Robert 15901 [facility] 2021-10-07 Outpatient Don, STLMLC STLMLC [id number] Common 12:32:50 Robert 81181 [facility] 2021-10-07 Outpatient Don, STLMLC STLMLC [id number] Common 12:28:53 Robert [id number] [facility] 2021-10-07 Outpatient Don, STLMLC STLMLC [id number] Common 11:59:48 Robert 32060 [facility] 2021-10-07 Outpatient Don, STLMLC STLMLC [id number] Common 11:55:12 Roebrt 52984 [facility] 2021-10-07 Outpatient Don, STLMLC STLMLC [id number] Common 11:53:59 Robert 69574 [facility] 2021-10-07 Outpatient Don, STLMLC STLMLC [id number] Common 11:50:25 Robert 55910 [facility] 2021-10-07 Outpatient Don, STLMLC STLMLC [id number] Common 11:33:15 Robert 33301 [facility] 2021-10-07 Outpatient Don, STLMLC STLMLC [id number] Common 11:19:27 Robert 21352 [facility] 2021-10-07 Outpatient Don, STLMLC STLMLC [id number] Common 11:16:20 Robert [id number] [facility] 2021-11-18 2021-11-18 Inpatient MERLE DowningCL DAYS [id number] [facility] 05:28:00 05:28:00 [place] [facility] 2021-08-31 2021-08-31 Outpatient Adams_R DMG DMG [id number] [facility] 10:18:00 10:18:00 [facility] 2021-05-08 2021-05-08 Outpatient GAYLORD_S DMG DMG [id number] [facility] 02:30:00 02:30:00 08[facility] 2021-03-27 2021-03-27 Outpatient STLMLC STLMLC [id number] Common 00:00:00 00:00:00 [facility] 2021-03-20 2021-03-20 Outpatient STLMLC STLMLC [id number] Common 00:00:00 00:00:00 [facility] 2021-03-19 2021-03-19 Outpatient STLMLC STLMLC [id number] Common 00:00:00 00:00:00 [facility] 2021-02-24 2021-02-24 Outpatient GAYLORD_S DMG DMG [id number] [facility] 11:53:00 11:53:00 0615 [facility] 2021-02-03 2021-02-03 Outpatient Rashmi-Mbayo VFP VF [id number] 12:38:00 12:38:00 _A_AH 16507 Family Practic e 2020-12-29 2020-12-29 Outpatient STLMLC STLMLC [id number] Common 00:00:00 00:00:00 [facility] 2020-12-27 2020-12-27 Outpatient DMG DMG [id number] [facility] 06:00:00 06:00:00 0417 [facility] 2020-12-25 2020-12-25 Outpatient DMG DMG [id number] [facility] 11:00:00 11:00:00 0415 [facility] 2020-12-03 2020-12-03 Outpatient STLMLC STLMLC [id number] Common 00:00:00 00:00:00 [facility] 2020-12-02 2020-12-02 Outpatient STLMLC STLMLC [id number] Common 00:00:00 00:00:00 [facility] 2020-11-25 2020-11-25 Outpatient Rashmi-Mbayo VFP VFP [id number] [facility] 08:15:00 08:15:00 _A_AH [id number] Family Practic e 2020-11-24 2020-11-24 Outpatient STLMLC STLMLC [id number] Common 00:00:00 00:00:00 [facility] 2020-11-05 2020-11-05 Outpatient STLMLC STLMLC [id number] Common 00:00:00 00:00:00 [facility] 2020-10-30 2020-10-30 Outpatient Rashmi-Mbayo VFP VFP [id number] [facility] 05:52:00 05:52:00 _A_AH 31627 Family Practic e 2020-10-27 2020-10-27 Outpatient Rashmi-Mbayo VFP VFP [id number] [facility] 02:28:00 02:28:00 _A_AH 00777 Family Practic e 2020-10-21 2020-10-21 Outpatient Rashmi-Mbayo VFP VFP [id number] [facility] 01:32:00 01:32:00 _A_AH 23232 Family Practic e 2020-10-21 2020-10-21 Outpatient STLMLC STLMLC [id number] Common 00:00:00 00:00:00 [facility] 2020-10-21 2020-10-21 Blanquita P [place] - [id number] [facility] illage 00:00:00 00:00:00 [facility] 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 2020-08-22 2020-08-22 Outpatient STLMLC STLMLC [id number] Common 00:00:00 00:00:00 [facility] 2020-08-04 2020-08-04 Outpatient STLMLC STLMLC [id number] Common 00:00:00 00:00:00 [facility] 2020-07-16 2020-07-16 Outpatient STLMLC STLMLC [id number] Common 00:00:00 00:00:00 [facility] 2020-07-10 2020-07-10 Outpatient STLMLC STLMLC [id number] Common 00:00:00 00:00:00 [facility] 2020-06-25 2020-06-25 Outpatient STLMLC STLMLC [id number] Common 00:00:00 00:00:00 [facility] 2020-06-16 2020-06-16 Outpatient STLMLC STLMLC [id number] Common 00:00:00 00:00:00 [facility] 2020-04-10 2020-04-10 [facility] [id number] Common 13:26:00 13:26:[address] [facility] 2020-04-09 2020-04-09 Out[facility] [id number] Common 10:15:00 10:15:[address] [employer] [facility] 2020-02-19 2020-02-19 Outpatient [facility] [id number] Common 10:18:00 10:18:00 t [facility] it Road [facility] 2020-02-11 2020-02-11 Out[facility] [id number] Common 09:41:00 09:41:[address] [facility] 2020-02-06 2020-02-06 Outpatient Rashmi-Jayce VFP [facility] [id number] [facility] 10:22:00 10:22:00 _A_AH [id number] Family Practic e 2020-01-24 2020-01-24 [facility] [id number] Common 11:35:00 11:35:00 t [facility] [address] Sp[address] [facility] 2020-01-11 2020-01-11 Out[facility] [id number] Common 10:56:00 10:56:[address] [facility] 2020-01-09 2020-01-09 Out[facility] [id number] Common 10:00:00 10:00:00 t [place] [employer] Spir it [address] [facility] 2020-01-09 2020-01-09 Outpatient Rashmi-Mbayo VFP VFP [id number] [facility] 09:39:00 09:39:00 _A_AH 22453 Family Practic e 2020-01-04 2020-01-04 Outpatient Rashmi-Mbayo VFP VFP [id number] Village 08:52:00 08:52:00 _A_AH 16002 Family Practic e 2020-01-01 2020-01-01 Blanquita VFP [place] - [id number] V illage 00:00:00 00:00:00 Rashmi-Mbay [facility] Fam cheryl grover, 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 2019-12-11 2019-12-11 Outpatient [facility] 30 [id number] Common 09:00:00 09:00:00 [employer] [facility] it Drive [facility] 2019-12-04 2019-12-04 Outpatient Rashmi-Mbayo VFP VFP [id number] [facility] 03:47:00 03:47:00 _A_AH 32343 Family Practic e Results Test Description Test Time Test Comments Results Result Comments Source GLUCOSE BEDSIDE 2021-11-18 09:20:00 Test Item Value Reference Range Interpretation Comme nts GLUCOSE BEDSIDE (test code = 159 MG/DL 70-110 H Performed by certified refinery operator alkylation [facility] GLUCOSE [id number] 06:43:00 Test Item Value Reference Range Interpretation Comments GLUCOSE BEDSIDE (test 114 MG/DL 70-110 H Perfor med by certified code = GLUBED) refinery operator alkylation at [facility] - XR FLUOROSCOPY 0-60 [id number] 00:00:00 [facility] : 1960 Sex: M FAX: Cleveland Evans [phone] [place]: St: REG Name: DWAYNE BUSH [facility] : 1960 Age/S: 61/M [address] [place] [address] Unit #: [id number] Loc: [place] [address] Phys: Cleveland Arreaga MD Acct: [id number] Dis Date: Status: REG [facility] PHONE #: [phone] Exam Date: 11/18/2021 1043 FAX #: Reason: CHRONIC PAIN SYNDROME, BREAK DOWN OF OTHER NERV EXAMS: CPT CODE: [id number] XR FLUOROSCOPY 0-60 MIN 83167 PROCEDURE INFORMATION: Exam: FL Fluoroscopy, Up to 1 Hour Physician Time; Radiologist Not Present For Fluoroscopy Exam date and time: 11/18/2021 8:21 AM Age: 61 years old Clinical i ndication: Screening exam; Additional info: Chronic pain syndrome, break down of other nervous system; () TECHNIQUE: Imaging protocol: Fluoroscopy , up to 1 hour physician or other qualified health day care director time. This radiologist did not supervise this procedure. Exam supervised by facility p judson. Report for radiation dosage reporting and documentation only. COMPARISON: No relevant prior studies available. RADIATION DOSE METRICS: Fluoroscopy time (seconds): seconds= 11 SECONDS Number of fluoro spot images: images= 2 Reference air kerma (FIOR): 8.11 mGy FINDINGS: Procedural imaging: Late ral intraoperative view thoracolumbar spine. Notes: Fluoroscopy supervised by facility personnel. See also separate procedure report. IMPRESSION: Fluoroscopy dosage documentation. See also separate procedure notes. at 1056 Reported and signed by: Leobardo Aggarwal M.D. CC: Cleveland Arreaga MD Technologist: RT Aga(R) Trnscrd Date/Time/By: 11/18/2021 (5972) : By: [email or web address] Orig Print D/T: S: 11/18/2021 (3640) PAGE 1 Signed ReportNovel Coronavirus 2019 [id number] 05:20:00 Test Item Value Reference Range Interpretation Comments Novel Coronavirus Negative Negative Positive r esults are 2019 Inhouse (test indicativ e of the presence code = COVNONPUI) ofSARS-CoV -2 RNA, clinical correlation wit h patient historyand othe r diagnostic info rmation is necessary to determinepatien t infection status. Positiv e results do not rule out bacterial infection or co -infection with other viru ses. Negative result s do not preclude SARS-C oV-2 infection andsh ould not be used as the susan e basis for patient managementdecis ions. Negative result s must be combined with otherclinical observations, p atient history, and epidemiological information . Detection of SARS-CoV-2 RNA may be affe cted bysample collec tion methods, storag e conditions, and /or stageof infection. [place] l RNA mutations, vacc inations, antiviraltherap eutics, antibiotics, chemotherapeuti c orimmunosuppres tiny drugs have not been e valuated for effectson d etection. Results are for the identification of SARS-CoV-2 RNA usingreal-time (RT) polymerase khris n reaction (PCR) technolog yfor the qualitative det ection of nucleic acids f rom [id number] v irus and diagnosis of SA RS-CoV-2 virusinfection. It is an Emergency Use Authorization ( EUA) testauthorized by the U.S. FDA. BASIC METABOLIC [id number] 15:42:00 Test Item Value Reference Range Interpretation Comments SODIUM (test code = NA) 143 mEq/L 134-147 N POTASSIUM (test code = 4.3 mEq/L 3.4-5.0 N K) CHLORIDE (test code = 109 mEq/L 100-108 H CL) CARBON DIOXIDE (test 25 mEq/l 21-33 N code = CO2) ANION GAP (test code = 13 0-20 N GAP) GLUCOSE (test code = 111 mg/dL 70-110 H GLU) BLOOD UREA NITROGEN 12 mg/dL 7-18 N (test code = BUN) GLOMERULAR FILTRATION 76.0 80-90 L Units of measure = RATE (test code = GFR) ml/mi n/1.73 m2 CREATININE (test code = 1.0 mg/dL 0.6-1.3 N CREAT) CALCIUM (test code = 9.6 mg/dL 8.0-10.5 N CA) CBC W/AUTO [id number] 15:33:00 Test Item Value Reference Range Interpretation Comments WHITE BLOOD CELL (test code = 7.0 x10 3/uL 4.5-11.0 N WBC) RED BLOOD CELL (test code = 4.53 x10 6/uL 4.00-5.60 N RBC) HEMOGLOBIN (test code = HGB) 13.4 g/dL 12.5-16.9 N HEMATOCRIT (test code = HCT) 40.6 % 37.5-50.7 N MEAN CELL VOLUME (test code = 89.6 fL 81.0-99.0 N MCV) MEAN CELL HGB (test code = MCH) 29.6 pg 27.0-33.0 N MEAN CELL HGB CONCETRATION 33.0 g/dL 33.0-37.0 N (test code = MCHC) RED CELL DISTRIBUTION WIDTH CV 12.2 % 11.5-14.5 N (test code = RDW) PLATELET COUNT (test code = 203 x10 3/uL 150-400 N PLT) NEUTROPHIL % (test code = NT%) 62.2 % 56.0-77.0 N LYMPHOCYTE % (test code = LY%) 28.2 % 14.0-32.0 N NEUTROPHIL # (test code = NT#) 4.33 x10 3/uL 2.0-7.6 N LYMPHOCYTE # (test code = LY#) 1.96 x10 3/uL 1.0-3.8 N MANUAL DIFF REQUIRED (test code NO = MDIFF) RED CELL DISTRIBUTION WIDTH SD 39.8 fL 37.0-54.0 N (test code = RDW-SD) MEAN PLATELET VOLUME (test code 10.6 fL 7.0-9.0 H = MPV) IMMATURE GRANULOCYTE % (test 0.3 % 0.0-2.0 N code = IG%) MONOCYTE % (test code = MO%) 5.7 % 4.8-9.0 N EOSINOPHIL % (test code = EO%) 3.3 % 0.3-3.7 N BASOPHIL % (test code = BA%) 0.3 % 0.0-2.0 N NUCLEATED RBC % (test code = 0.0 % 0-0 N NRBC%) IMMATURE GRANULOCYTE # (test 0.02 x10 3/uL 0.00-0.03 N code = IG#) MONOCYTE # (test code = MO#) 0.40 x10 3/uL 0.1-0.8 N EOSINOPHIL # (test code = EO#) 0.23 x10 3/uL 0.0-0.2 H BASOPHIL # (test code = BA#) 0.02 x10 3/uL 0.0-0.2 N NUCLEATED RBC # (test code = 0.00 x10 3/uL 0.0-0.1 N NRBC#) - XR CHEST 2 [id number] 00:00:[address] [facility] : 1960 Sex: M FAX: Cleveland Evans [phone] [place]: St: PRE FAX: Livia Liang Name: SHAHNAZ BUSHL [facility] :1960 Age/S: 61/M [address] [place] [address] Unit #: [id number] Loc: [place] [address] Phys:Livia 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 Views: 2 views. PA and Lateral COMPARISON: No relevant prior studies available. FINDINGS: Lungs: The lungs are clear. Pleural spaces: No pleural effusion. No pneumothorax. Hea rt/Mediastinum: The heart size is normal. The pulmonary vasculature is normal. The mediastinal contour is normal. The trachea is midline. Bones/joints: Mild thoracic spondylosis. No destructive bone lesions. Intraperitoneal space: Postsurgical clips are seen in the upper abdomen. IMPRESSION: No acutefindings. at 1706 Reported and signed by: Blayne Mathew M.D. CC: [place] Arreaga MD; Livia Liang NP Technologist: RT Sadi(R) Trnscrd Date/Time/By: 11/16/2021 (9803) : By: [email or web address] Orig Print D/T: S: 11/16/2021 (0108) PAGE 1 Signed Report
--- NOTE | 2022-06-13 15:31 | ER ---
Nurse's Notes [facility] Name: Vikash Forbes Jr Age: 62 yrs Sex: Male : 1960 Arrival Date: 06/13/2022 Time: 12:56 Bed 10 Private MD: Diagnosis: Presentation: 06/13 13:46 Chief complaint: Patient states: Left hand pain that began about an hour ago that vg1 radiates up the Left arm; states was holding pot and had a sudden pain to Left hand. Denies injury to hand. Coronavirus screen: Vaccine status: Patient reports being unvaccinated. Client denies travel out of the [place] in the last 14 days. Ebola Screen: Patient negative for fever greater than or equal to 101.5 degrees Fahrenheit, and additional compatible Ebola Virus Disease symptoms Patient denies exposure to infectious person. Initial Sepsis Screen: Does the patient meet any 2 criteria? No. Patient's initial sepsis screen is negative. Does the patient have a suspected source of infection? No. Patient's initial sepsis screen is negative. Risk Assessment: Do you want to hurt yourself or someone else? Patient reports no desire to harm self or others. Onset of symptoms was June 13, 2022. 13:46 Method Of Arrival: Wheelchair vg1 13:46 Acuity: ALMA 4 vg1 Triage Assessment: 13:48 General: Appears uncomfortable, Behavior is cooperative, restless. Pain: Complains of vg1 pain in left hand and left arm Pain currently is 10 out of 10 on a pain scale. Derm:. Musculoskeletal: Swelling present in left hand. Historical: - Allergies: 13:48 Iodex; vg1 13:48 Iodinated Contrast Media - IV Dye; vg1 - Home Meds: 13:48 gabapentin oral [Active]; hydrocodone-acetaminophen 10-325 mg Oral tab [Active]; vg1 - PMHx: 13:48 Back pain; Diabetes - IDDM; High Cholesterol; Hypertension; Lymphadema; vg1 - Immunization history:: Client reports having NOT received the Covid vaccine. - Social history:: Smoking status: Patient denies any tobacco usage or history of. Screenin:11 Abuse screen: Denies threats or abuse. Denies injuries from another. Nutritional tp1 screening: No deficits noted. Tuberculosis screening: No symptoms or risk factors identified. Assessment: 14:00 General: Appears in no apparent distress. uncomfortable, Behavior is calm, cooperative. tp1 Pain: Complains of pain in left ring finger Pain radiates to left arm Pain currently is 10 out of 10 on a pain scale. Quality of pain is described as dull, Is continuous. Pain: Aggravated by repositioning. Neuro: Level of Consciousness is awake, alert, obeys commands, Oriented to person, place, time, situation. Cardiovascular: Capillary refill < 3 seconds in bilateral fingers Patient's skin is warm and dry. Pulses are 2+ in left radial artery. Respiratory: Airway is patent Respiratory effort is even, unlabored. GI: No signs and/or symptoms were reported involving the gastrointestinal system. : No signs and/or symptoms were reported regarding the genitourinary system. EENT: No signs and/or symptoms were reported regarding the EENT system. Derm: Skin is left ring finger appears to be red Skin temperature is hot to the left ring finger. Musculoskeletal: Circulation, motion, and sensation intact. Vital Signs: 13:46 BP 171 / 89; Pulse 67; Resp 18; Temp 97.9; Pulse Ox 100% ; Weight 86.18 kg; Height 5 vg1 ft. 11 in. (180.34 cm); Pain 10/10; 14:00 BP 157 / 77; Pulse 114; Resp 18; Pulse Ox 98% on R/A; tp1 13:46 Body Mass Index 26.50 (86.18 kg, 180.34 cm) vg1 ED Course: 12:56 Patient arrived in ED. as 13:48 Triage completed. vg1 13:48 Arm band placed on. vg1 13:59 Debby Ruffin RN is Primary Nurse. tp1 14:00 Patient has correct armband on for positive identification. Call light in reach. tp1 14:41 Daniel French PA is PHCP. tim 14:41 Evan Turcios MD is Attending Physician. jhon Administered Medications: No medications were administered Outcome: 15:28 Eloped from patient exam room, before seeing physician Time discovered patient gone: tp1 June 13, 2022 at 14:28 15:30 Patient left the ED. tp1 Signatures: Daniel French PA PA jmm Martinez, Amelia as Garcia, Victoria, RN RN vg1 Augustin, Debby, RN RN tp1 Corrections: (The following items were deleted from the chart) 15:29 15:29 Patient has correct armband on for positive identification. tp1 tp1
[2022-06-13 15:36] VITALS: TEMP 97.9
[2022-06-13 15:37] VITALS: BP 157/77; O2SAT 98
== END 2022-06-13 15:30 | disposition left against medical advice (07) ==
LOC: ER 12:54
DX: M79.642 Pain in left hand (principal); Z53.21 Procedure and treatment not carried out due to patient leaving prior to being seen by health care provider
CPT/HCPCS: 99281

== ENCOUNTER 2022-09-28 10:08 | Emergency (ER) | payer OTHER ==
--- OUTSIDE RECORDS SUMMARY | 2022-09-28 10:14 | XMS REPORT | Continuity of Care Document ---
:1960 Author Organization [facility] t Address [address] [place] [address] Care Team Providers Name Role Phone Allyn Sanchez Attending Clinician Unavailable Arturo Riggs Attending Clinician Unavailable Robert Don Attending Clinician Unavailable Cleveland Arreaga Attending Clinician Unavailable Adams_R Attending Clinician Unavailable GAYLORD_S Attending Clinician Unavailable Rashmi-Mbayo_A_AH Attending Clinician Unavailable Physician, No Primary or Family Admitting Clinician Unavaila ble Adams_R Admitting Clinician Unavailable GAYLORD_S Admitting Clinician Unavailable Rashmi-Mbayo_A_AH Admitting Clinician Unavailable Payers Payer Name Policy Type Policy Number Effective Date Expiration Date S katharina [facility] [id number] 2021 (MEDICARE 00:00:00 REPLACEMENT HMO) [facility] C1 [id number] [facility] [place] [id number] [facility] - [id number] [employer] 00:00:00 (MEDICARE REPLACEMENT/ADVAN TAGE - HMO) [place] [id number] [facility] [place] [id number] [facility] C1 [id number] [facility] [id number] [facility] [id number] [facility] [id number] [facility] [id number] [facility] [id number] [facility] [id number] [facility] [id number] [facility]1 [id number] [facility] [id number] [facility] Problems Condition Condition Condition Status Onset Resolution Last Treating Co mments Source Name Details Category Date Date Treatment Clinician Date Diabetes Diabetes Problem Active [facility] mellitus Mellitus 2-09 Family 00:00: Practic 00 e Senile Senile Problem Active [facility] purpura Purpura 1-12 Family 00:00: Practic 00 e Neuropathy Neuropathy Problem Active V illage due to Due to 4-20 Family diabetes Diabetes 00:00: Practi c mellitus Mellitus 00 e Benign Benign Problem Active [facility] prostatic Prostatic 2-06 Fami ly hyperplasi Hyperplasi 00:00: Pr actic a a 00 e Chronic Chronic Problem Active [facility] low back Low Back 2-06 Family pain Pain 00:00: Practic 00 e Vertigo Vertigo Problem Active 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 Depressive 00:00: Pr actic episodes, Episodes, 00 e moderate Moderate Gastroesop Gastroesop Problem Active V illage hageal hageal 2-06 Family reflux Reflux 00:00: Practic disease Disease 00 e Hypertensi Hypertensi Problem Active V illage ve ve 8-03 Family disorder Disorder 00:00: Practi c 00 e [id number] Balanitis Problem Active Comm on [facility] [id number] Lower Problem Active [facility] urinary [id number] Kidney Problem Active Common stones [facility] [id number] Subacromia Problem Active C ommon [id number] l bursitis Spirit of right - [facility] shoulder [facility] [id number] longterm Problem Active Com mon (current) Spirit use of - [facility] insulin [facility] [id number] Impingemen Problem Active C ommon [address] t syndrome Spirit of right - [facility] shoulder [facility] [id number] Type 2 Problem Active Common diabetes [facility] [id number] Essential Problem Active Comm on hypertensi Spirit on - [facility] [id number] Current Problem Active Common moderate Spirit episode of - [facility] major [facility] prior episode [id number] [place]ign Problem [place] [id number] prostatic Spirit hyperplasi - [facility] a with [facility] urinary Medical tract Center symptoms [id number] Osteoarthr Problem Active Co mmon itis of [facility] lumbar [facility] itis complicati on status [id number] Noncomplia Problem Active Co mmon nce with Spirit dietary - [facility] restrictio [facility] [id number] Mixed Problem Active Common hyperlipid Spirit emia - [facility] [id number] Hypercalce Problem Active Com mon deisy [facility] - [facility] [id number] Other Problem Active Common chronic Spirit pain - [facility] [id number] Diabetic Problem Active Comm on polyneurop Spirit athy - CHI associated St with type [facility] 2 diabetes Med[facility] l mellitus [facility] [id number] GERD Problem Active Common without Spirit esophagiti - [facility] s [facility] [id number] Dependence Problem Active Co mmon on other Spirit enabling - [facility] machines and [facility] [id number] Obstructiv Problem Active Com mon e sleep Spirit apnea - [facility] (adult) (pediatric [facility] ) [facility] [id number] Tinnitus Problem Active Commo n of left Spirit ear - [facility] Allergies, Adverse Reactions, Alerts Allergy Allergy Status Severity Reaction(s) Onset Inactive Treating Comm ents Source Name Type Date Date Clinician iodine DA Active SV RASH,SOB [facility] 3-07 Clear 00:00: [place] 00 [facility] Iodine Allergy Active Severe Anaphylaxis Vill age to 1-03 Family substan 00:00: Practic e 00 e Social History Social Habit Start Date Stop Date Quantity Comments Source History of Tobacco Use Co mmon [facility] Sex Assigned At Com mon [facility] Smoking Status Start Date Stop Date Source Unknown if ever smoked Common Sp mario [facility] Ce nter Former Smoker 2020-11-24 00:00:00 2020-11-24 00:00:00 Common S pirit [facility] Ce nter Medications Ordered Filled Start Stop Current Ordering Indication Dosage Frequency Signature Comments Components Source Medication Medication Date Date Medication? Clinician (SIG) Name Name Amoxicillin Amoxicillin No 1{table BID Amoxicilli -Pot -Pot 4-19 04-29 t} n-Pot Clavulanate Clavulanate 00:00: 00:00 Clavulanat 875-125 MG 875-125 MG 00 :00 e 875-125 MG Clotrimazol Clotrimazol 2020- No 1{appli BID Clotrimazo e-Betametha e-Betametha 11-24 cation} le-Betamet sone 1-0.05 sone 1-0.05 00:00: 00:00 hasone % % 00 :00 1-0.05 % Clotrimazol Clotrimazol 2020- No 1{appli BID Clotrimazo e-Betametha e-Betametha 11-24 cation} le-Betamet sone 1-0.05 sone 1-0.05 00:00: 00:00 hasone % % 00 :00 1-0.05 % Clotrimazol Clotrimazol 2020- No 1{appli BID Clotrimazo e-Betametha e-Betametha 11-24 cation} le-Betamet sone 1-0.05 sone 1-0.05 00:00: 00:00 hasone % % 00 :00 1-0.05 % Clotrimazol Clotrimazol 2020-0 2020- No 1{appli BID Clotrimazo e-Betametha e-Betametha 3-15 06-07 cation} le-Betamet sone 1-0.05 sone 1-0.05 00:00: 00:00 hasone % % 00 :00 1-0.05 % Pen Rodman Pen Rodman 2019- No TID Pen 11/25" 31G X 316" 31G X 1-05 Rodman 5 MM 5 MM 00:00: 11/25" 31G 00 X 5 MM Pen Rodman Pen Rodman 2019- No TID Pen 11/25" 31G X 3/16" 31G X 1-05 Rodman 5 MM 5 MM 00:00: 11/25" 31G 00 X 5 MM Pen Rodman Pen Rodman 2019- No TID Pen 11/25" 31G X 16" 31G X 1-05 Rodman 5 MM 5 MM 00:00: 11/25" 31G 00 X 5 MM Pen Rodman Pen Rodman 2019-09 No TID Pen 11/25" 31G X 316" 31G X 1-05 Rodman 5 MM 5 MM 00:00: 11/25" 31G 00 X 5 MM Pen Rodman Pen Rodman 2019- No TID Pen 11/25" 31G X 3/16" 31G X 1-05 Rodman 5 MM 5 MM 00:00: 11/25" 31G 00 X 5 MM Pen Rodman Pen Rodman 2019- No TID Pen 11/25" 31G X 3/16" 31G X 1-05 Rodman 5 MM 5 MM 00:00: 11/25" 31G 00 X 5 MM Pen Rodman Pen Rodman 2019- No TID Pen 11/25" 31G X 3/16" 31G X 1-05 Rodman 5 MM 5 MM 00:00: 11/25" 31G 00 X 5 MM Pen Rodman Pen Rodman 2019- No TID Pen 11/25" 31G X 3/16" 31G X 1-05 Rodman 5 MM 5 MM 00:00: 11/25" 31G 00 X 5 MM Pen Rodman Pen Rodman 2019- No TID Pen 11/25" 31G X 3/16" 31G X 1-05 Rodman 5 MM 5 MM 00:00: 3/16" 31G 00 X 5 MM Pen Rodman Pen Rodman 2019-09 No TID Pen 16" 31G X 3/16" 31G X 1-05 Rodman 5 MM 5 MM 00:00: 11/25" 31G 00 X 5 MM Pen Rodman Pen Rodman 2019-09 No TID Pen 16" 31G X 3/16" 31G X 1-05 Rodman 5 MM 5 MM 00:00: 11/25" 31G 00 X 5 MM Pen Rodman Pen Rodman 2019-09 No TID Pen 16" 31G X 3/16" 31G X 1-05 Rodman 5 MM 5 MM 00:00: 11/25" 31G 00 X 5 MM Amoxicillin Amoxicillin 2019-09 2020- No 1{table BID Amoxicilli -Pot -Pot 0-14 10-24 t} n-Pot Clavulanate Clavulanate 00:00: 00:00 Clavulanat 875-125 MG 875-125 MG 00 :00 e 875-125 MG MetFORMIN MetFORMIN Yes Robert 2 tabs Common HCl ER HCl ER 7-29 Don with meals Spir it 00:00: - [facility] 00 [facility] Pregabalin Pregabalin Yes Robert 1 capsule Common Don [facility] Losartan Losartan Yes Robert TAKE 1 Com mon Potassium Potassium Don TABLET(50 Spirit MG) BY - CHI MOUTH [facility] Meloxicam Meloxicam Yes Robert TAKE 1 C ommon Don TABLET BY Spirit MOUTH ONCE - CHI A DAY [facility] Pantoprazol Pantoprazol Yes Robert TAKE 1 Common e Sodium e Sodium Don TABLET(40 S pirit MG) BY - CHI MOUTH [facility]ICE [facility] DAILY [facility] [place] Victoza Victoza Yes Robert not Common Don defined [facility] Tamsulosin Tamsulosin Yes Robert not C ommon HCl HCl Don defined [facility] Fenofibrate Fenofibrate Yes Robert TAKE 1 Common Don TABLET(160 Spirit MG) BY - CHI MOUTH St DAILY WITH [facility] A MEAL [facility] Tamsulosin Tamsulosin Yes Robert TAKE 1 Common HCl HCl Don CAPSULE BY Spirit MOUTH - CHI EVERY DAY [facility] Morphine Morphine Yes Robert as Commo n Sulfate Sulfate Don directed Spir [facility] Levemir Levemir Yes Robert as Common FlexTouch FlexTouch Don directed [facility] Sertraline Sertraline Yes Robert not C ommon HCl HCl Don defined [facility] Meclizine Meclizine Yes Robert not Com mon HCl HCl Don defined [facility] Pantoprazol Pantoprazol Yes Robert not Common e Sodium e Sodium Don defined Spi rit [facility] Pravastatin Pravastatin Yes Robert not Common Sodium Sodium Don defined [facility] Meloxicam Meloxicam Yes Robert not Com mon Don defined [facility] Fenofibrate Fenofibrate Yes Robert not Common Don defined [facility] Losartan Losartan Yes Robert not Commo n Pot[facility] Hydrocodone Hydrocodone Yes Robert not Common -Acetaminop -Acetaminop Don defined [facility] hen [facility] Tamsulosin Tamsulosin No 1{capsu QD Tamsulosin HCl 0.4 MG HCl 0.4 MG le} HCl 0.4 MG Pravastatin Pravastatin No 1{table QD Pravastati Sodium 40 Sodium 40 t} n Sodium MG MG 40 MG Morphine Morphine No Morphine Sulfate 10 Sulfate 10 Sulfate 10 MG/0.7ML MG/0.7ML MG/0.7ML Levemir Levemir No BID Levemir FlexTouch FlexTouch FlexTouch 100 UNIT/ML 100 UNIT/ML 100 UNIT/ML Levemir Levemir No BID Levemir FlexTouch FlexTouch FlexTouch 100 UNIT/ML 100 UNIT/ML 100 UNIT/ML Losartan Losartan No 1{table QD Losartan Potassium Potassium t} Potassium 50 MG 50 MG 50 MG Sertraline Sertraline No 1{table QD Sertraline HCl 100 MG HCl 100 MG t} HCl 100 MG Pregabalin Pregabalin No 1{capsu TID Pregabalin 50 MG 50 MG le} 50 MG Hydrocodone Hydrocodone No 1{table TID Hydrocodon -Acetaminop -Acetaminop t_as_ne e-Acetamin hen 7.5-325 hen 7.5-325 eded} ophen MG MG 7.5-325 MG Meclizine Meclizine No Meclizine HCl 25 MG HCl 25 MG HCl 25 MG Meclizine Meclizine No 1{table Meclizine HCl 25 MG HCl 25 MG ts} HCl 25 MG Fenofibrate Fenofibrate No 1{table QD Fenofibrat 160 MG 160 MG t} e 160 MG Meloxicam Meloxicam No 1{table QD Meloxicam 15 MG 15 MG t} 15 MG Victoza 18 Victoza 18 No QD Victoza 18 MG/3ML MG/3ML MG/3ML Pantoprazol Pantoprazol No 2{table BID Pantoprazo e Sodium 40 e Sodium 40 ts} le Sodium MG MG 40 MG MetFORMIN MetFORMIN No BID MetFORMIN HCl ER 500 HCl ER 500 HCl ER 500 MG MG MG Levemir Levemir No Levemir FlexTouch FlexTouch FlexTouch 100 UNIT/ML 100 UNIT/ML 100 UNIT/ML Tamsulosin Tamsulosin No 1{capsu QD Tamsulosin HCl 0.4 MG HCl 0.4 MG le} HCl 0.4 MG Pregabalin Pregabalin No 1{capsu TID Pregabalin 50 MG 50 MG le} 50 MG Pantoprazol Pantoprazol No 2{table BID Pantoprazo e Sodium 40 e Sodium 40 ts} le Sodium MG MG 40 MG Losartan Losartan No 1{table QD Losartan Potassium Potassium t} Potassium 50 MG 50 MG 50 MG Meclizine Meclizine No Meclizine HCl 25 MG HCl 25 MG HCl 25 MG Sertraline Sertraline No 1{table QD Sertraline HCl 100 MG HCl 100 MG t} HCl 100 MG Meloxicam Meloxicam No 1{table QD Meloxicam 15 MG 15 MG t} 15 MG Fenofibrate Fenofibrate No 1{table QD Fenofibrat 160 MG 160 MG t} e 160 MG MetFORMIN MetFORMIN No BID MetFORMIN HCl ER 500 HCl ER 500 HCl ER 500 MG MG MG Hydrocodone Hydrocodone No 1{table TID Hydrocodon -Acetaminop -Acetaminop t_as_ne e-Acetamin hen 7.5-325 hen 7.5-325 eded} ophen MG MG 7.5-325 MG Meclizine Meclizine No 1{table Meclizine HCl 25 MG HCl 25 MG ts} HCl 25 MG Victoza 18 Victoza 18 No QD Victoza 18 MG/3ML MG/3ML MG/3ML Morphine Morphine No Morphine Sulfate 10 Sulfate 10 Sulfate 10 MG/0.7ML MG/0.7ML MG/0.7ML Pravastatin Pravastatin No 1{table QD Pravastati Sodium 40 Sodium 40 t} n Sodium MG MG 40 MG Tamsulosin Tamsulosin No 1{capsu QD Tamsulosin HCl 0.4 MG HCl 0.4 MG le} HCl 0.4 MG Pravastatin Pravastatin No 1{table QD Pravastati Sodium 40 Sodium 40 t} n Sodium MG MG 40 MG Hydrocodone Hydrocodone No 1{table TID Hydrocodon -Acetaminop -Acetaminop t_as_ne e-Acetamin hen 7.5-325 hen 7.5-325 eded} ophen MG MG 7.5-325 MG Pantoprazol Pantoprazol No 2{table BID Pantoprazo e Sodium 40 e Sodium 40 ts} le Sodium MG MG 40 MG Losartan Losartan No 1{table QD Losartan Potassium Potassium t} Potassium 50 MG 50 MG 50 MG Meclizine Meclizine No Meclizine HCl 25 MG HCl 25 MG HCl 25 MG Sertraline Sertraline No 1{table QD Sertraline HCl 100 MG HCl 100 MG t} HCl 100 MG Pregabalin Pregabalin No 1{capsu TID Pregabalin 50 MG 50 MG le} 50 MG MetFORMIN MetFORMIN No BID MetFORMIN HCl ER 500 HCl ER 500 HCl ER 500 MG MG MG Meloxicam Meloxicam No 1{table QD Meloxicam 15 MG 15 MG t} 15 MG Morphine Morphine No Morphine Sulfate 10 Sulfate 10 Sulfate 10 MG/0.7ML MG/0.7ML MG/0.7ML Levemir Levemir No BID Levemir FlexTouch FlexTouch FlexTouch 100 UNIT/ML 100 UNIT/ML 100 UNIT/ML Victoza 18 Victoza 18 No QD Victoza 18 MG/3ML MG/3ML MG/3ML Fenofibrate Fenofibrate No 1{table QD Fenofibrat 160 MG 160 MG t} e 160 MG Meclizine Meclizine No 1{table Meclizine HCl 25 MG HCl 25 MG ts} HCl 25 MG Tamsulosin Tamsulosin No 1{capsu QD Tamsulosin HCl 0.4 MG HCl 0.4 MG le} HCl 0.4 MG Pravastatin Pravastatin No 1{table QD Pravastati Sodium 40 Sodium 40 t} n Sodium MG MG 40 MG Hydrocodone Hydrocodone No 1{table TID Hydrocodon -Acetaminop -Acetaminop t_as_ne e-Acetamin hen 7.5-325 hen 7.5-325 eded} ophen MG MG 7.5-325 MG Pantoprazol Pantoprazol No 2{table BID Pantoprazo e Sodium 40 e Sodium 40 ts} le Sodium MG MG 40 MG Losartan Losartan No 1{table QD Losartan Potassium Potassium t} Potassium 50 MG 50 MG 50 MG Meclizine Meclizine No Meclizine HCl 25 MG HCl 25 MG HCl 25 MG Sertraline Sertraline No 1{table QD Sertraline HCl 100 MG HCl 100 MG t} HCl 100 MG Pregabalin Pregabalin No 1{capsu TID Pregabalin 50 MG 50 MG le} 50 MG MetFORMIN MetFORMIN No BID MetFORMIN HCl ER 500 HCl ER 500 HCl ER 500 MG MG MG Meloxicam Meloxicam No 1{table QD Meloxicam 15 MG 15 MG t} 15 MG Morphine Morphine No Morphine Sulfate 10 Sulfate 10 Sulfate 10 MG/0.7ML MG/0.7ML MG/0.7ML Levemir Levemir No BID Levemir FlexTouch FlexTouch FlexTouch 100 UNIT/ML 100 UNIT/ML 100 UNIT/ML Victoza 18 Victoza 18 No QD Victoza 18 MG/3ML MG/3ML MG/3ML Fenofibrate Fenofibrate No 1{table QD Fenofibrat 160 MG 160 MG t} e 160 MG Meclizine Meclizine No 1{table Meclizine HCl 25 MG HCl 25 MG ts} HCl 25 MG Fenofibrate Fenofibrate No Fenofibrat 160 MG 160 MG e 160 MG Pravastatin Pravastatin No 1{table QD Pravastati Sodium 40 Sodium 40 t} n Sodium MG MG 40 MG Sertraline Sertraline No 1{table QD Sertraline HCl 100 MG HCl 100 MG t} HCl 100 MG Levemir Levemir No BID Levemir FlexTouch FlexTouch FlexTouch 100 UNIT/ML 100 UNIT/ML 100 UNIT/ML Levemir Levemir No BID Levemir FlexTouch FlexTouch FlexTouch 100 UNIT/ML 100 UNIT/ML 100 UNIT/ML Tamsulosin Tamsulosin No 1{capsu QD Tamsulosin HCl 0.4 MG HCl 0.4 MG le} HCl 0.4 MG Morphine Morphine No Morphine Sulfate 10 Sulfate 10 Sulfate 10 MG/0.7ML MG/0.7ML MG/0.7ML Victoza 18 Victoza 18 No QD Victoza 18 MG/3ML MG/3ML MG/3ML Losartan Losartan No 1{table QD Losartan Potassium Potassium t} Potassium 50 MG 50 MG 50 MG Fenofibrate Fenofibrate No 1{table QD Fenofibrat 160 MG 160 MG t} e 160 MG Losartan Losartan No 1{table QD Losartan Potassium Potassium t} Potassium 50 MG 50 MG 50 MG MetFORMIN MetFORMIN No BID MetFORMIN HCl ER 500 HCl ER 500 HCl ER 500 MG MG MG Meloxicam Meloxicam No 1{table QD Meloxicam 15 MG 15 MG t} 15 MG Meloxicam Meloxicam No Meloxicam 15 MG 15 MG 15 MG MetFORMIN MetFORMIN No BID MetFORMIN HCl ER 500 HCl ER 500 HCl ER 500 MG MG MG Tamsulosin Tamsulosin No Tamsulosin HCl 0.4 MG HCl 0.4 MG HCl 0.4 MG Pregabalin Pregabalin No 1{capsu TID Pregabalin 50 MG 50 MG le} 50 MG Meclizine Meclizine No 1{table Meclizine HCl 25 MG HCl 25 MG ts} HCl 25 MG Pantoprazol Pantoprazol No 2{table BID Pantoprazo e Sodium 40 e Sodium 40 ts} le Sodium MG MG 40 MG Pravastatin Pravastatin No 1{table QD Pravastati Sodium 40 Sodium 40 t} n Sodium MG MG 40 MG Hydrocodone Hydrocodone No 1{table TID Hydrocodon -Acetaminop -Acetaminop t_as_ne e-Acetamin hen 7.5-325 hen 7.5-325 eded} ophen MG MG 7.5-325 MG Meclizine Meclizine No Meclizine HCl 25 MG HCl 25 MG HCl 25 MG MetFORMIN MetFORMIN No BID MetFORMIN HCl ER 500 HCl ER 500 HCl ER 500 MG MG MG Meclizine Meclizine No 1{table Meclizine HCl 25 MG HCl 25 MG ts} HCl 25 MG Meloxicam Meloxicam No Meloxicam 15 MG 15 MG 15 MG Morphine Morphine No Morphine Sulfate 10 Sulfate 10 Sulfate 10 MG/0.7ML MG/0.7ML MG/0.7ML Pravastatin Pravastatin No 1{table QD Pravastati Sodium 40 Sodium 40 t} n Sodium MG MG 40 MG Fenofibrate Fenofibrate No 1{table QD Fenofibrat 160 MG 160 MG t} e 160 MG Levemir Levemir No BID Levemir FlexTouch FlexTouch FlexTouch 100 UNIT/ML 100 UNIT/ML 100 UNIT/ML Hydrocodone Hydrocodone No 1{table TID Hydrocodon -Acetaminop -Acetaminop t_as_ne e-Acetamin hen 7.5-325 hen 7.5-325 eded} ophen MG MG 7.5-325 MG Sertraline Sertraline No 1{table QD Sertraline HCl 100 MG HCl 100 MG t} HCl 100 MG MetFORMIN MetFORMIN No BID MetFORMIN HCl ER 500 HCl ER 500 HCl ER 500 MG MG MG Levemir Levemir No BID Levemir FlexTouch FlexTouch FlexTouch 100 UNIT/ML 100 UNIT/ML 100 UNIT/ML Tamsulosin Tamsulosin No 1{capsu QD Tamsulosin HCl 0.4 MG HCl 0.4 MG le} HCl 0.4 MG Losartan Losartan No 1{table QD Losartan Potassium Potassium t} Potassium 50 MG 50 MG 50 MG Meclizine Meclizine No Meclizine HCl 25 MG HCl 25 MG HCl 25 MG Tamsulosin Tamsulosin No Tamsulosin HCl 0.4 MG HCl 0.4 MG HCl 0.4 MG Pravastatin Pravastatin No 1{table QD Pravastati Sodium 40 Sodium 40 t} n Sodium MG MG 40 MG Fenofibrate Fenofibrate No Fenofibrat 160 MG 160 MG e 160 MG Pregabalin Pregabalin No 1{capsu TID Pregabalin 50 MG 50 MG le} 50 MG Losartan Losartan No 1{table QD Losartan Potassium Potassium t} Potassium 50 MG 50 MG 50 MG Pantoprazol Pantoprazol No 2{table BID Pantoprazo e Sodium 40 e Sodium 40 ts} le Sodium MG MG 40 MG Victoza 18 Victoza 18 No QD Victoza 18 MG/3ML MG/3ML MG/3ML Meloxicam Meloxicam No 1{table QD Meloxicam 15 MG 15 MG t} 15 MG Levemir Levemir No BID Levemir FlexTouch FlexTouch FlexTouch 100 UNIT/ML 100 UNIT/ML 100 UNIT/ML Losartan Losartan No 1{table QD Losartan Potassium Potassium t} Potassium 50 MG 50 MG 50 MG Losartan Losartan No 1{table QD Losartan Potassium Potassium t} Potassium 50 MG 50 MG 50 MG Pregabalin Pregabalin No 1{capsu TID Pregabalin 50 MG 50 MG le} 50 MG Fenofibrate Fenofibrate No Fenofibrat 160 MG 160 MG e 160 MG Pravastatin Pravastatin No 1{table QD Pravastati Sodium 40 Sodium 40 t} n Sodium MG MG 40 MG Levemir Levemir No BID Levemir FlexTouch FlexTouch FlexTouch 100 UNIT/ML 100 UNIT/ML 100 UNIT/ML Meclizine Meclizine No Meclizine HCl 25 MG HCl 25 MG HCl 25 MG Fenofibrate Fenofibrate No 1{table QD Fenofibrat 160 MG 160 MG t} e 160 MG Hydrocodone Hydrocodone No 1{table TID Hydrocodon -Acetaminop -Acetaminop t_as_ne e-Acetamin hen 7.5-325 hen 7.5-325 eded} ophen MG MG 7.5-325 MG Tamsulosin Tamsulosin No Tamsulosin HCl 0.4 MG HCl 0.4 MG HCl 0.4 MG Victoza 18 Victoza 18 No Victoza 18 MG/3ML MG/3ML MG/3ML Pravastatin Pravastatin No 1{table QD Pravastati Sodium 40 Sodium 40 t} n Sodium MG MG 40 MG Morphine Morphine No Morphine Sulfate 10 Sulfate 10 Sulfate 10 MG/0.7ML MG/0.7ML MG/0.7ML MetFORMIN MetFORMIN No BID MetFORMIN HCl ER 500 HCl ER 500 HCl ER 500 MG MG MG Pantoprazol Pantoprazol No 2{table BID Pantoprazo e Sodium 40 e Sodium 40 ts} le Sodium MG MG 40 MG Tamsulosin Tamsulosin No 1{capsu QD Tamsulosin HCl 0.4 MG HCl 0.4 MG le} HCl 0.4 MG Meloxicam Meloxicam No Meloxicam 15 MG 15 MG 15 MG Sertraline Sertraline No 1{table QD Sertraline HCl 100 MG HCl 100 MG t} HCl 100 MG Pregabalin Pregabalin No 1{capsu TID Pregabalin 50 MG 50 MG le} 50 MG Pravastatin Pravastatin No 1{table QD Pravastati Sodium 40 Sodium 40 t} n Sodium MG MG 40 MG Sertraline Sertraline No 1{table QD Sertraline HCl 100 MG HCl 100 MG t} HCl 100 MG Tamsulosin Tamsulosin No 1{capsu QD Tamsulosin HCl 0.4 MG HCl 0.4 MG le} HCl 0.4 MG Levemir Levemir No BID Levemir FlexTouch FlexTouch FlexTouch 100 UNIT/ML 100 UNIT/ML 100 UNIT/ML Morphine Morphine No Morphine Sulfate 10 Sulfate 10 Sulfate 10 MG/0.7ML MG/0.7ML MG/0.7ML Fenofibrate Fenofibrate No Fenofibrat 160 MG 160 MG e 160 MG Fenofibrate Fenofibrate No 1{table QD Fenofibrat 160 MG 160 MG t} e 160 MG Meclizine Meclizine No Meclizine HCl 25 MG HCl 25 MG HCl 25 MG MetFORMIN MetFORMIN No BID MetFORMIN HCl ER 500 HCl ER 500 HCl ER 500 MG MG MG Pravastatin Pravastatin No 1{table QD Pravastati Sodium 40 Sodium 40 t} n Sodium MG MG 40 MG Meloxicam Meloxicam No Meloxicam 15 MG 15 MG 15 MG Tamsulosin Tamsulosin No Tamsulosin HCl 0.4 MG HCl 0.4 MG HCl 0.4 MG Losartan Losartan No 1{table QD Losartan Potassium Potassium t} Potassium 50 MG 50 MG 50 MG Levemir Levemir No BID Levemir FlexTouch FlexTouch FlexTouch 100 UNIT/ML 100 UNIT/ML 100 UNIT/ML Victoza 18 Victoza 18 No Victoza 18 MG/3ML MG/3ML MG/3ML Pantoprazol Pantoprazol No 2{table BID Pantoprazo e Sodium 40 e Sodium 40 ts} le Sodium MG MG 40 MG Hydrocodone Hydrocodone No 1{table TID Hydrocodon -Acetaminop -Acetaminop t_as_ne e-Acetamin hen 7.5-325 hen 7.5-325 eded} ophen MG MG 7.5-325 MG Losartan Losartan No 1{table QD Losartan Potassium Potassium t} Potassium 50 MG 50 MG 50 MG Pregabalin Pregabalin No 1{capsu TID Pregabalin 50 MG 50 MG le} 50 MG Pravastatin Pravastatin No 1{table QD Pravastati Sodium 40 Sodium 40 t} n Sodium MG MG 40 MG Sertraline Sertraline No 1{table QD Sertraline HCl 100 MG HCl 100 MG t} HCl 100 MG Tamsulosin Tamsulosin No 1{capsu QD Tamsulosin HCl 0.4 MG HCl 0.4 MG le} HCl 0.4 MG Levemir Levemir No BID Levemir FlexTouch FlexTouch FlexTouch 100 UNIT/ML 100 UNIT/ML 100 UNIT/ML Morphine Morphine No Morphine Sulfate 10 Sulfate 10 Sulfate 10 MG/0.7ML MG/0.7ML MG/0.7ML Fenofibrate Fenofibrate No Fenofibrat 160 MG 160 MG e 160 MG Fenofibrate Fenofibrate No 1{table QD Fenofibrat 160 MG 160 MG t} e 160 MG Meclizine Meclizine No Meclizine HCl 25 MG HCl 25 MG HCl 25 MG MetFORMIN MetFORMIN No BID MetFORMIN HCl ER 500 HCl ER 500 HCl ER 500 MG MG MG Pravastatin Pravastatin No 1{table QD Pravastati Sodium 40 Sodium 40 t} n Sodium MG MG 40 MG Meloxicam Meloxicam No Meloxicam 15 MG 15 MG 15 MG Tamsulosin Tamsulosin No Tamsulosin HCl 0.4 MG HCl 0.4 MG HCl 0.4 MG Losartan Losartan No 1{table QD Losartan Potassium Potassium t} Potassium 50 MG 50 MG 50 MG Levemir Levemir No BID Levemir FlexTouch FlexTouch FlexTouch 100 UNIT/ML 100 UNIT/ML 100 UNIT/ML Victoza 18 Victoza 18 No Victoza 18 MG/3ML MG/3ML MG/3ML Pantoprazol Pantoprazol No 2{table BID Pantoprazo e Sodium 40 e Sodium 40 ts} le Sodium MG MG 40 MG Hydrocodone Hydrocodone No 1{table TID Hydrocodon -Acetaminop -Acetaminop t_as_ne e-Acetamin hen 7.5-325 hen 7.5-325 eded} ophen MG MG 7.5-325 MG Losartan Losartan No 1{table QD Losartan Potassium Potassium t} Potassium 50 MG 50 MG 50 MG Fenofibrate Fenofibrate No Fenofibrat 160 MG 160 MG e 160 MG Pregabalin Pregabalin No 1{capsu TID Pregabalin 50 MG 50 MG le} 50 MG Losartan Losartan No 1{table QD Losartan Potassium Potassium t} Potassium 50 MG 50 MG 50 MG Meloxicam Meloxicam No Meloxicam 15 MG 15 MG 15 MG Pantoprazol Pantoprazol No 2{table BID Pantoprazo e Sodium 40 e Sodium 40 ts} le Sodium MG MG 40 MG Levemir Levemir No BID Levemir FlexTouch FlexTouch FlexTouch 100 UNIT/ML 100 UNIT/ML 100 UNIT/ML Levemir Levemir No BID Levemir FlexTouch FlexTouch FlexTouch 100 UNIT/ML 100 UNIT/ML 100 UNIT/ML Tamsulosin Tamsulosin No Tamsulosin HCl 0.4 MG HCl 0.4 MG HCl 0.4 MG MetFORMIN MetFORMIN No BID MetFORMIN HCl ER 500 HCl ER 500 HCl ER 500 MG MG MG Meclizine Meclizine No Meclizine HCl 25 MG HCl 25 MG HCl 25 MG Tamsulosin Tamsulosin No 1{capsu QD Tamsulosin HCl 0.4 MG HCl 0.4 MG le} HCl 0.4 MG Morphine Morphine No Morphine Sulfate 10 Sulfate 10 Sulfate 10 MG/0.7ML MG/0.7ML MG/0.7ML Victoza 18 Victoza 18 No Victoza 18 MG/3ML MG/3ML MG/3ML Sertraline Sertraline No 1{table QD Sertraline HCl 100 MG HCl 100 MG t} HCl 100 MG Hydrocodone Hydrocodone No 1{table TID Hydrocodon -Acetaminop -Acetaminop t_as_ne e-Acetamin hen 7.5-325 hen 7.5-325 eded} ophen MG MG 7.5-325 MG Pravastatin Pravastatin No 1{table QD Pravastati Sodium 40 Sodium 40 t} n Sodium MG MG 40 MG Levemir Levemir No BID Levemir FlexTouch FlexTouch FlexTouch 100 UNIT/ML 100 UNIT/ML 100 UNIT/ML Pravastatin Pravastatin No 1{table QD Pravastati Sodium 40 Sodium 40 t} n Sodium MG MG 40 MG Victoza 18 Victoza 18 No QD Victoza 18 MG/3ML MG/3ML MG/3ML Morphine Morphine No Morphine Sulfate 10 Sulfate 10 Sulfate 10 MG/0.7ML MG/0.7ML MG/0.7ML Fenofibrate Fenofibrate No Fenofibrat 160 MG 160 MG e 160 MG Pregabalin Pregabalin No 1{capsu TID Pregabalin 50 MG 50 MG le} 50 MG Losartan Losartan No 1{table QD Losartan Potassium Potassium t} Potassium 50 MG 50 MG 50 MG Levemir Levemir No BID Levemir FlexTouch FlexTouch FlexTouch 100 UNIT/ML 100 UNIT/ML 100 UNIT/ML HYDROcodone HYDROcodone No 1{table TID HYDROcodon -Acetaminop -Acetaminop t_as_ne e-Acetamin hen 7.5-325 hen 7.5-325 eded} ophen MG MG 7.5-325 MG Sertraline Sertraline No 1{table QD Sertraline HCl 100 MG HCl 100 MG t} HCl 100 MG Meloxicam Meloxicam No 1{table QD Meloxicam 15 MG 15 MG t} 15 MG Tamsulosin Tamsulosin No Tamsulosin HCl 0.4 MG HCl 0.4 MG HCl 0.4 MG Losartan Losartan No 1{table QD Losartan Potassium Potassium t} Potassium 50 MG 50 MG 50 MG metFORMIN metFORMIN No BID metFORMIN HCl ER 500 HCl ER 500 HCl ER 500 MG MG MG Fenofibrate Fenofibrate No 1{table QD Fenofibrat 160 MG 160 MG t} e 160 MG Pravastatin Pravastatin No 1{table QD Pravastati Sodium 40 Sodium 40 t} n Sodium MG MG 40 MG Meclizine Meclizine No Meclizine HCl 25 MG HCl 25 MG HCl 25 MG Victoza 18 Victoza 18 No Victoza 18 MG/3ML MG/3ML MG/3ML Pantoprazol Pantoprazol No 2{table BID Pantoprazo e Sodium 40 e Sodium 40 ts} le Sodium MG MG 40 MG Meloxicam Meloxicam No Meloxicam 15 MG 15 MG 15 MG Tamsulosin Tamsulosin No 1{capsu QD Tamsulosin HCl 0.4 MG HCl 0.4 MG le} HCl 0.4 MG Fenofibrate Fenofibrate No 1{table QD Fenofibrat 160 MG 160 MG t} e 160 MG Losartan Losartan No 1{table QD Losartan Potassium Potassium t} Potassium 50 MG 50 MG 50 MG HYDROcodone HYDROcodone No 1{table TID HYDROcodon -Acetaminop -Acetaminop t_as_ne e-Acetamin hen 7.5-325 hen 7.5-325 eded} ophen MG MG 7.5-325 MG Pantoprazol Pantoprazol No 2{table BID Pantoprazo e Sodium 40 e Sodium 40 ts} le Sodium MG MG 40 MG Meclizine Meclizine No Meclizine HCl 25 MG HCl 25 MG HCl 25 MG Levemir Levemir No BID Levemir FlexTouch FlexTouch FlexTouch 100 UNIT/ML 100 UNIT/ML 100 UNIT/ML Morphine Morphine No Morphine Sulfate 10 Sulfate 10 Sulfate 10 MG/0.7ML MG/0.7ML MG/0.7ML Tamsulosin Tamsulosin No 1{capsu QD Tamsulosin HCl 0.4 MG HCl 0.4 MG le} HCl 0.4 MG Losartan Losartan No 1{table QD Losartan Potassium Potassium t} Potassium 50 MG 50 MG 50 MG Pravastatin Pravastatin No 1{table QD Pravastati Sodium 40 Sodium 40 t} n Sodium MG MG 40 MG Sertraline Sertraline No 1{table QD Sertraline HCl 100 MG HCl 100 MG t} HCl 100 MG Fenofibrate Fenofibrate No Fenofibrat 160 MG 160 MG e 160 MG Meloxicam Meloxicam No Meloxicam 15 MG 15 MG 15 MG Pregabalin Pregabalin No 1{capsu TID Pregabalin 50 MG 50 MG le} 50 MG Meloxicam Meloxicam No 1{table QD Meloxicam 15 MG 15 MG t} 15 MG Pravastatin Pravastatin No 1{table QD Pravastati Sodium 40 Sodium 40 t} n Sodium MG MG 40 MG Tamsulosin Tamsulosin No Tamsulosin HCl 0.4 MG HCl 0.4 MG HCl 0.4 MG Levemir Levemir No BID Levemir FlexTouch FlexTouch FlexTouch 100 UNIT/ML 100 UNIT/ML 100 UNIT/ML metFORMIN metFORMIN No BID metFORMIN HCl ER 500 HCl ER 500 HCl ER 500 MG MG MG Victoza 18 Victoza 18 No QD Victoza 18 MG/3ML MG/3ML MG/3ML Victoza 18 Victoza 18 No Victoza 18 MG/3ML MG/3ML MG/3ML Morphine Morphine No Morphine Sulfate 10 Sulfate 10 Sulfate 10 MG/0.7ML MG/0.7ML MG/0.7ML Pantoprazol Pantoprazol No 2{table BID Pantoprazo e Sodium 40 e Sodium 40 ts} le Sodium MG MG 40 MG Losartan Losartan No 1{table QD Losartan Potassium Potassium t} Potassium 50 MG 50 MG 50 MG Pregabalin Pregabalin No 1{capsu TID Pregabalin 50 MG 50 MG le} 50 MG Pravastatin Pravastatin No 1{table QD Pravastati Sodium 40 Sodium 40 t} n Sodium MG MG 40 MG Sertraline Sertraline No 1{table QD Sertraline HCl 100 MG HCl 100 MG t} HCl 100 MG Levemir Levemir No BID Levemir FlexTouch FlexTouch FlexTouch 100 UNIT/ML 100 UNIT/ML 100 UNIT/ML Tamsulosin Tamsulosin No 1{capsu QD Tamsulosin HCl 0.4 MG HCl 0.4 MG le} HCl 0.4 MG Victoza 18 Victoza 18 No QD Victoza 18 MG/3ML MG/3ML MG/3ML Meclizine Meclizine No Meclizine HCl 25 MG HCl 25 MG HCl 25 MG Tamsulosin Tamsulosin No Tamsulosin HCl 0.4 MG HCl 0.4 MG HCl 0.4 MG Meloxicam Meloxicam No 1{table QD Meloxicam 15 MG 15 MG t} 15 MG metFORMIN metFORMIN No BID metFORMIN HCl ER 500 HCl ER 500 HCl ER 500 MG MG MG HYDROcodone HYDROcodone No 1{table TID HYDROcodon -Acetaminop -Acetaminop t_as_ne e-Acetamin hen 7.5-325 hen 7.5-325 eded} ophen MG MG 7.5-325 MG Victoza 18 Victoza 18 No Victoza 18 MG/3ML MG/3ML MG/3ML Levemir Levemir No BID Levemir FlexTouch FlexTouch FlexTouch 100 UNIT/ML 100 UNIT/ML 100 UNIT/ML Fenofibrate Fenofibrate No Fenofibrat 160 MG 160 MG e 160 MG Meloxicam Meloxicam No Meloxicam 15 MG 15 MG 15 MG Levemir Levemir No BID Levemir FlexTouch FlexTouch FlexTouch 100 UNIT/ML 100 UNIT/ML 100 UNIT/ML Tamsulosin Tamsulosin No 1{capsu QD Tamsulosin HCl 0.4 MG HCl 0.4 MG le} HCl 0.4 MG Meclizine Meclizine No 1{table Meclizine HCl 25 MG HCl 25 MG ts} HCl 25 MG Pravastatin Pravastatin No 1{table QD Pravastati Sodium 40 Sodium 40 t} n Sodium MG MG 40 MG Fenofibrate Fenofibrate No 1{table QD Fenofibrat 160 MG 160 MG t} e 160 MG Levemir Levemir No BID Levemir FlexTouch FlexTouch FlexTouch 100 UNIT/ML 100 UNIT/ML 100 UNIT/ML Pregabalin Pregabalin No 1{capsu TID Pregabalin 50 MG 50 MG le} 50 MG Losartan Losartan No 1{table QD Losartan Potassium Potassium t} Potassium 50 MG 50 MG 50 MG Morphine Morphine No Morphine Sulfate 10 Sulfate 10 Sulfate 10 MG/0.7ML MG/0.7ML MG/0.7ML Hydrocodone Hydrocodone No 1{table TID Hydrocodon -Acetaminop -Acetaminop t_as_ne e-Acetamin hen 7.5-325 hen 7.5-325 eded} ophen MG MG 7.5-325 MG MetFORMIN MetFORMIN No BID MetFORMIN HCl ER 500 HCl ER 500 HCl ER 500 MG MG MG Sertraline Sertraline No 1{table QD Sertraline HCl 100 MG HCl 100 MG t} HCl 100 MG Victoza 18 Victoza 18 No QD Victoza 18 MG/3ML MG/3ML MG/3ML Meloxicam Meloxicam No 1{table QD Meloxicam 15 MG 15 MG t} 15 MG Pantoprazol Pantoprazol No 2{table BID Pantoprazo e Sodium 40 e Sodium 40 ts} le Sodium MG MG 40 MG Meclizine Meclizine No Meclizine HCl 25 MG HCl 25 MG HCl 25 MG Meloxicam Meloxicam No 1{table QD Meloxicam 15 MG 15 MG t} 15 MG Levemir Levemir No BID Levemir FlexTouch FlexTouch FlexTouch 100 UNIT/ML 100 UNIT/ML 100 UNIT/ML Tamsulosin Tamsulosin No 1{capsu QD Tamsulosin HCl 0.4 MG HCl 0.4 MG le} HCl 0.4 MG Levemir Levemir No BID Levemir FlexTouch FlexTouch FlexTouch 100 UNIT/ML 100 UNIT/ML 100 UNIT/ML Pregabalin Pregabalin No 1{capsu TID Pregabalin 50 MG 50 MG le} 50 MG Losartan Losartan No 1{table QD Losartan Potassium Potassium t} Potassium 50 MG 50 MG 50 MG Hydrocodone Hydrocodone No 1{table TID Hydrocodon -Acetaminop -Acetaminop t_as_ne e-Acetamin hen 7.5-325 hen 7.5-325 eded} ophen MG MG 7.5-325 MG Pravastatin Pravastatin No 1{table QD Pravastati Sodium 40 Sodium 40 t} n Sodium MG MG 40 MG Fenofibrate Fenofibrate No 1{table QD Fenofibrat 160 MG 160 MG t} e 160 MG Victoza 18 Victoza 18 No QD Victoza 18 MG/3ML MG/3ML MG/3ML Morphine Morphine No Morphine Sulfate 10 Sulfate 10 Sulfate 10 MG/0.7ML MG/0.7ML MG/0.7ML Pantoprazol Pantoprazol No 2{table BID Pantoprazo e Sodium 40 e Sodium 40 ts} le Sodium MG MG 40 MG Sertraline Sertraline No 1{table QD Sertraline HCl 100 MG HCl 100 MG t} HCl 100 MG MetFORMIN MetFORMIN No BID MetFORMIN HCl ER 500 HCl ER 500 HCl ER 500 MG MG MG fenofibrate fenofibrate No 1 Q1D fenofibrat [place] [...] route. meclizine meclizine No [address] [facility] 25 mg 25 mg 25 mg Family tablet Take tablet Take tablet Practic 1 tablet 3 1 tablet 3 Take 1 e times a day times a day tablet 3 by oral by oral times a route. route. day by oral route. meloxicam meloxicam No [address] [facility] 15 mg 15 mg 15 mg Family tablet Take tablet Take tablet Practic 1 tablet 1 tablet Take 1 e every day every day tablet by oral by oral every day route as route as by oral needed. needed. route as needed. [place] 325 [place] 325 No 1 Q6H [place] 325 [place] mg-7.5 mg mg-7.5 mg mg-7.5 [...] route. pravastatin pravastatin No [address] [facility] 40 mg 40 mg n 40 mg Family tablet Take tablet Take tablet Practic 1 tablet 1 tablet Take 1 e every day every day tablet by oral by oral every day route. route. by oral route. pregabalin pregabalin No 1capsul TID pregabalin [facility] 50 mg 50 mg e(s) 50 mg Family capsule capsule capsule Practi c Take 1 Take 1 Take 1 e capsule 3 capsule 3 capsule 3 times a day times a day times a by oral by oral day by route. route. oral route. sertraline sertraline No [address] [facility] 100 mg 100 mg 100 mg Family tablet Take tablet Take tablet Practic 1 tablet 1 tablet Take 1 e every day every day tablet by oral by oral every day route. route. by oral route. tamsulosin tamsulosin No 1capsul Q1D tamsulosin [facility] 0.4 mg 0.4 mg e(s) 0.4 mg [...] Source Name Name influenza, influenza, 2018-09-[address] [facility] injectable, injectable, 00:00:00 Practice quadrivalent quadrivalent Vital Signs Vital Name Observation Time Observation Value Comments Source height 2021-03-27 11:00:00 70 [in_i] [facility] weight 2021-03-27 11:00:00 220 [lb_av] [facility] temperature 2021-03-27 11:00:00 98 [degF] [facility] bmi 2021-03-27 11:00:00 31.56 kg/m2 [facility] oximetry 2021-03-27 11:00:00 99 % [facility] blood pressure 2021-03-27 11:00:00 159 mm[Hg] [facility] blood pressure 2021-03-27 11:00:00 84 mm[Hg] [facility] - diastolic [facility] height 2021-03-20 09:20:00 70 [in_i] [facility] weight 2021-03-20 09:20:00 224.9 [lb_av] [facility] temperature 2021-03-20 09:20:00 96.2 [degF] [facility] bmi 2021-03-20 09:20:00 32.27 kg/m2 [facility] - [facility] oximetry 2021-03-20 09:20:00 97 % [facility] blood pressure 2021-03-20 09:20:00 140 mm[Hg] [facility] - systolic [facility] blood pressure 2021-03-20 09:20:00 82 mm[Hg] [facility] - diastolic [facility] height 2020-12-29 16:10:00 70 [in_i] [facility] weight 2020-12-29 16:10:00 224.9 [lb_av] [facility] temperature 2020-12-29 16:10:00 97.3 [degF] [facility] bmi 2020-12-29 16:10:00 32.27 kg/m2 [facility] S [facility] oximetry 2020-12-29 16:10:00 100 % [facility] respiratory rate 2020-12-29 16:10:00 17 /min Comm on [facility] - [facility] blood pressure 2020-12-29 16:10:00 134 mm[Hg] [facility] - systolic [facility] blood pressure 2020-12-29 16:10:00 64 mm[Hg] [facility] - diastolic [facility] height 2020-12-03 09:00:00 70 [in_i] [facility] weight 2020-12-03 09:00:00 210.4 [lb_av] [facility] temperature 2020-12-03 09:00:00 97.3 [degF] [facility] bmi 2020-12-03 09:00:00 30.19 kg/m2 [facility] oximetry 2020-12-03 09:00:00 99 % [facility] blood pressure 2020-12-03 09:00:00 115 mm[Hg] [facility] blood pressure 2020-12-03 09:00:00 70 mm[Hg] [facility] diastolic [facility] height 2020-11-24 10:30:00 70 [in_i] [facility] - [facility] weight 2020-11-24 10:30:00 221 [lb_av] [facility] temperature 2020-11-24 10:30:00 98 [degF] [facility] - [facility] bmi 2020-11-24 10:30:00 31.71 kg/m2 [facility] - [facility] oximetry 2020-11-24 10:30:00 97 % [facility] blood pressure 2020-11-24 10:30:00 145 mm[Hg] [facility] blood pressure 2020-11-24 10:30:00 77 mm[Hg] [facility] diastolic [facility] height 2020-11-05 10:15:00 70 [in_i] [facility] weight 2020-11-05 10:15:00 221 [lb_av] [facility] temperature 2020-11-05 10:15:00 97.8 [degF] [facility] bmi 2020-11-05 10:15:00 31.71 kg/m2 [facility] oximetry 2020-11-05 10:15:00 97 % [facility] blood pressure 2020-11-05 10:15:00 130 mm[Hg] [facility] blood pressure 2020-11-05 10:15:00 77 mm[Hg] [facility] diastolic [facility] height 2020-10-21 10:00:00 70 [in_i] [facility] weight 2020-10-21 10:00:00 223.7 [lb_av] [facility] temperature 2020-10-21 10:00:00 97.3 [degF] [facility] bmi 2020-10-21 10:00:00 32.09 kg/m2 [facility] oximetry 2020-10-21 10:00:00 98 % [facility] respiratory rate 2020-10-21 10:00:00 17 /min Comm on [facility] blood pressure 2020-10-21 10:00:00 135 mm[Hg] [facility] - systolic [facility] blood pressure 2020-10-21 10:00:00 71 mm[Hg] [facility] height 2020-07-10 10:30:00 70 [in_i] [facility] weight 2020-07-10 10:30:00 221.2 [lb_av] [facility] temperature 2020-07-10 10:30:00 97.5 [degF] [facility] S [facility] bmi 2020-07-10 10:30:00 31.74 kg/m2 [facility] oximetry 2020-07-10 10:30:00 98 % [facility] respiratory rate 2020-07-10 10:30:00 16 /min Comm on [facility] blood pressure 2020-07-10 10:30:00 138 mm[Hg] Common [facility] - systolic [facility] blood pressure 2020-07-10 10:30:00 71 mm[Hg] [facility] height 2020-06-25 11:20:00 70 [in_i] [facility] weight 2020-06-25 11:20:00 230.2 [lb_av] [facility] temperature 2020-06-25 11:20:00 98.2 [degF] [facility] bmi 2020-06-25 11:20:00 33.03 kg/m2 [facility] - [facility] oximetry 2020-06-25 11:20:00 98 % [facility] respiratory rate 2020-06-25 11:20:00 17 /min Comm on [facility] blood pressure 2020-06-25 11:20:00 139 mm[Hg] [facility] blood pressure 2020-06-25 11:20:00 70 mm[Hg] Common [facility] - diastolic [facility] Procedures This patient has no known procedures. Plan of Care Planned Activity Planned Date Details Comments Source Instructions [facility] Encounters Start End Encounter Admission Attending Care Care Encounter Source Date/Time Date/Time Type Type Clinicians Facility Department ID 2021-11-05 Outpatient Sanchez, STLMLC STLMLC [id number] Common 14:09:01 Allyn Spiri t [facility] 2021-10-07 Outpatient Keely, STLMLC STLMLC [id number] Common 13:23:55 Arturo [id number] [facility] 2021-10-07 Outpatient Don, STLMLC STLMLC [id number] Common 13:01:37 Robert [address]116 [facility] 2021-10-07 Outpatient Don, STLMLC STLMLC [id number] Common 12:59:20 Robert [id number] [facility] 2021-10-07 Outpatient Don, STLMLC STLMLC [id number] Common 12:53:43 Robert 78875 [facility] 2021-10-07 Outpatient Don, STLMLC STLMLC [id number] Common 12:32:50 Robert [id number] [facility] 2021-10-07 Outpatient Don, STLMLC STLMLC [id number] Common 12:28:53 Robert 19945 [facility] 2021-10-07 Outpatient Don, STLMLC STLMLC [id number] Common 11:59:48 Robert 96172 [facility] 2021-10-07 Outpatient Don, STLMLC STLMLC [id number] Common 11:55:12 Robert 06929 [facility] 2021-10-07 Outpatient Don, STLMLC [facility] [id number] Common 11:53:59 Robert 46926 [facility] 2021-10-07 Outpatient Don, STLMLC STLC [id number] Common 11:50:25 Robert 32774 [facility] 2021-10-07 Outpatient Don, STLMLC STLC [id number] Common 11:33:15 Robert 93969 [facility] 2021-10-07 Outpatient Don, STLMLC [facility] Common 11:19:27 Robert [id number] [facility] 2021-10-07 Outpatient Don, STLC [facility] Common 11:16:20 Robert [address]56[address] [facility] 2021-11-18 2021-11-18 Inpatient CANDI Arreaga, HCACL DAYS [id number] [facility] 05:28:00 05:28:[address] [place] [address] [place] [address] 2021-08-31 2021-08-31 [facility] [id number] [facility] 10:18:00 10:18:00 1220 [facility] 2021-05-08 2021-05-08 Outpatient [facility] [id number] [facility] 02:30:00 02:30:00 0827 [facility] 2021-03-27 2021-03-27 OFFICE STLC [facility] [id number] Co mmon 00:00:00 00:00:00 VISIT Spirit ESTAB PT - CHI LEVEL 2 [facility] 2021-03-20 2021-03-20 OFFICE STLMLC STLC [id number] Co mmon 00:00:00 00:00:00 VISIT EST Spir it PT LEVEL 3 - [facility] 2021-03-19 2021-03-19 (TEL) STLMLC STLC [id number] Co mmon 00:00:00 00:00:00 [facility] 2021-02-24 2021-02-24 Outpatient GAYLORD_S [facility] [id number] [facility] 11:53:00 11:53:00 0615 Medica l Group 2021-02-03 2021-02-03 Outpatient Rashmi-Mbayo VFP VFP [phone] [place] 12:38:00 12:38:00 _A_AH [id number] [facility] Pract[facility] e 2020-12-29 2020-12-29 OFFICE STLMLC STLMLC [id number] Co mmon 00:00:00 00:00:00 VISIT EST Spir it PT LEVEL 3 - [facility] 2020-12-27 2020-12-27 Outpatient DMG [facility] [id number] [facility] 06:00:00 06:00:00 0417 [facility] l Group 2020-12-25 2020-12-25 Outpatient [facility] [id number] [facility] 11:00:00 11:00:00 0415 Med[facility] l Group 2020-12-03 2020-12-03 OFFICE STLMLC STLMLC [id number] Co mmon 00:00:00 00:00:00 VISIT EST Spir it PT LEVEL 3 - [facility] 2020-12-02 2020-12-02 (TEL) STLMLC STLMLC [id number] Co mmon 00:00:00 00:00:00 [facility] - [facility] 2020-11-25 2020-11-25 Outpatient Rashmi-Mbayo VFP VFP [phone] [facility] 08:15:00 08:15:00 _A_AH [id number] Family Practic e 2020-11-24 2020-11-24 OFFICE STLMLC STLMLC [id number] Co mmon 00:00:00 00:00:00 VISIT Spirit ESTAB PT - CHI LEVEL 4 [facility] 2020-11-05 2020-11-05 OFFICE STLMLC STLMLC [id number] Co mmon 00:00:00 00:00:00 VISIT NEW Spir it PT LEVEL 3 - [facility] 2020-10-30 2020-10-30 Outpatient Rashmi-Mbayo VFP VFP [phone] [facility] 05:52:00 05:52:00 _A_AH [id number] Family Practic e 2020-10-27 2020-10-27 Outpatient Rashmi-Mbayo VFP VFP [phone] [facility] 02:28:00 02:28:00 _A_AH [id number] Family Practic e 2020-10-21 2020-10-21 Outpatient Momo VFP VFP [phone] 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 2020-08-22 2020-08-22 (TEL) STLMLC STLMLC [id number] Co mmon 00:00:00 00:00:00 [facility] 2020-08-04 2020-08-04 (TEL) STLMLC STLMLC [id number] Co mmon 00:00:00 00:00:00 [facility] 2020-07-16 2020-07-16 (TEL) STLMLC STLMLC [id number] Co mmon 00:00:00 00:00:00 [facility] 2020-07-10 2020-07-10 OFFICE STLMLC STLMLC [id number] Co mmon 00:00:00 00:00:00 VISIT [facility] ESTAB PT - CHI LEVEL 4 [facility] 2020-06-25 2020-06-25 OFFICE STLMLC STLMLC [id number] Co mmon 00:00:00 00:00:00 VISIT EST Spir it PT LEVEL 3 - [facility] 2020-06-16 2020-06-16 (TEL) STLMLC STLMLC [id number] Co mmon 00:00:00 00:00:00 [facility] 2020-04-10 2020-04-10 Out[facility] [id number] Common 13:26:00 13:26:[address] [facility] 2020-04-09 2020-04-09 Outpatient [facility] [id number] Common 10:15:00 10:15:[address] [facility] 2020-02-19 2020-02-19 Outpatient [facility] 31 [id number] Common 10:18:00 10:18:00 [address] [facility] 2020-02-11 2020-02-11 Outpatient [facility] [id number] Common 09:41:00 09:41:[address] [facility] 2020-02-06 2020-02-06 Outpatient Rashmi-Mbayo VFP VFP [phone] [place] [address] 10:22:00 10:22:00 _A_AH [id number] Family Practic e 2020-01-24 2020-01-24 Outpatient [facility] [id number] Common 11:35:00 11:35:00 t [facility] [address] [facility]ir [address] Road [facility] 2020-01-11 2020-01-11 Outpatient [facility] [id number] Common 10:56:00 10:56:[address] [facility] 2020-01-09 2020-01-09 Outpatient [facility] 30 [id number] Common 10:00:00 10:00:[address] [facility] [facility] 2020-01-09 2020-01-09 Outpatient Rashmi-Mbayo VFP VFP [address] [place] [address] 09:39:00 09:39:00 _A_AH [id number] Family Practic e 2020-01-04 2020-01-04 Outpatient Rashmi-Mbayo VFP VFP [address] 08:52:00 08:52:00 _A_AH [id number] Family Practic e 2020-01-01 2020-01-01 Blan[place]ita VFP [place] - [id number] V illage 00:00:00 00:00:00 [place] Fam cheryl o, 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 2019-12-11 2019-12-11 Outpatient Carlitos Escobar [id number] 09:00:00 09:00:00 800APP [facility] [employer] [facility] 2019-12-04 2019-12-04 Outpatient Momo VFP VF 793 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 at [facility]) [facility] GLUCOSE [id number] 06:43:00 Test Item Value Reference Range Interpretation Comments GLUCOSE BEDSIDE (test 114 MG/DL 70-110 H Perfor med by certified code = GLUBED) truck crane operator helper at [facility] - XR FLUOROSCOPY 0-60 [id number] 00:00:00 [facility] 1960 Sex: M FAX: Cleveland Evans [phone] [place]: St: REG Name: DWAYNE BUSH [facility] : 1960 Age/S: 61/M [address] [place] [address] Unit #: [id number] Loc: [place] [address] Phys: Cleveland Arreaga MD Acct:[id number] Dis Date: Status: REG [facility] PHONE #: [phone] Exam Date: 11/18/2021 1043 FAX #: [phone] Reason: CHRONIC PAIN SYNDROME, BREAK DOWN OF OTHER NERV EXAMS: CPT CODE: [id number] XR FLUOROSCOPY 0-60 MIN 56520 PROCEDURE INFORMATION: Exam: FL Fluoroscopy, Up to 1 Hour Physician Time; Radiologist Not Present For Fluoroscopy Exam date and time: 11/18/2021 8:21 AM Age: 61 years old Clinical ind ication: Screening exam; Additional info: Chronic pain syndrome, break down of other nervous system;() TECHNIQUE: Imaging protocol: Fluoroscopy , up to 1 hour physician or other qualified health neurocritical care physician time. This radiologist did not supervise this procedure. Exam supervised by facility personnel. Report for radiation dosage reporting and documentation only. COMPARISON: No relevant prior studies available. RADIATION DOSE METRICS: Fluoroscopy time (seconds): seconds= 11 SECONDS Number of fluoro spot images: images= 2 Reference air kerma (FIOR): 8.11 mGy FINDINGS: Procedural imaging: Lateral intraoperative view thoracolumbar spine. Notes: Fluoroscopy supervised by facility personnel. See al so separate procedure report. IMPRESSION: Fluoroscopy dosage documentation. See also separate procedure notes. at 1056 Reported and signed by:Leobardo Aggarwal M.D. CC: Cleveland Arreaga MD Technologist: Dominique Jose RT(R) Trnscrd Date/Time/By: (0376) : By: [email or web address] Orig Print D/T: S: 11/18/2021 (9381) PAGE 1 Signed ReportNovel Coronavirus 2019 [id number] 05:20:00 Test Item Value Reference Range Interpretation [...] det ection of nucleic acids f rom [id number] v irus and diagnosis of SA RS-CoV-2 virusinfection. It is an Emergency Use Authorization ( EUA) testauthorized by the U.S. FDA. 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 Views: 2 views. PA and Lateral COMPARISON: No relevant prior studies available. FINDINGS: Lungs: The lungs are clear. Pleural spaces: No pleural effusion. No pneumothorax. Heart/Mediastinum: The heart size is normal. The pulmonary vasculature is normal. The mediastinal contour is normal. The trachea is midline. Bones/joints: Mild thoracic spondylosis. No destructive bone lesions. Intraperitoneal space: Postsurgical clips are seen in the upper abdomen. IMPRESSION: No acutefindings. at 1706 Reported and signed by: Blayne Mathew M.D. CC: Cleveland Arreaga MD; Livia Liang NP Technologist: RT Sadi(Orestes) Trnscrd Date/Time/By: 11/16/2021 (170) : By: [email or web address] Orig Print D/T: S: 11/16/2021 (170) PAGE 1 Signed Report
[2022-09-28 10:46] LABS: Absolute Lymphocytes (CBC) 2.4 K/uL (0.7-4.9); Hematocrit 38.3 % (39.6-49.0); Lymphocytes % 36.9 % (15.3-44.8); MCV 88.9 fL (80-100); MPV 8.6 fL (7.6-11.3); RBC Red Blood Cell Count 4.31 M/uL (4.33-5.43)
[2022-09-28] MEDS ORDERED: DIPHENHYDRAMINE 50 MG/ML VIAL ONE (11:17)
[2022-09-28] MEDS ORDERED: METHYLPREDNISOLONE 125 MG INJ ONE (11:17)
[2022-09-28] MEDS ORDERED: FAMOTIDINE 20 MG/2 ML VIAL IV ONE (11:17)
[2022-09-28 11:20] LABS: Albumin 3.5 g/dL (3.4-5.0); Bilirubin Total 0.4 mg/dL (0.2-1.0); Potassium 4.7 mmol/L (3.5-5.1); Protein, Total 7.3 g/dL (6.4-8.2); Troponin High Sensitivity 3.5 pg/mL (<58.9)
--- NOTE | 2022-09-28 11:47 | RAD REPORT ---
EXAM DESCRIPTION: CT - Abdomen Pelvis Wo Contrast - 09/28/2022 11:35 am CLINICAL HISTORY: Abdominal pain COMPARISON: 2020 TECHNIQUE: Computed axial tomography of the abdomen and pelvis was obtained. IV and oral contrast we re not requested. All CT scans are performed using dose optimization technique as appropriate and may include automated exposure control or mA/KV adjustment according to patient size. FINDINGS: The evaluation of solid organs, vessels and bowel is limited secondary to the lack of con trast administration. Cholecystectomy Tiny bilateral renal calculi. No hydronephrosis. The liver, spleen, pancreas and adrenals grossly normal The appendix is normal. There is no evidence of diverticulitis. Diverticula stem from the colon without visualization diverticulitis. Small bilateral inguinal hernias. Neurostimulator device in place. Small umbilical hernia IMPRESSION: Tiny bilateral nonobstructing renal calculi
--- NOTE | 2022-09-28 11:58 | ER ---
Nurse's Notes [facility] Name: Vikash Forbes Jr Age: 62 yrs Sex: Male : 1960 Arrival Date: 09/28/2022 Time: 10:14 Bed 2 Private MD: Diagnosis: Epigastric pain Presentation: 09/28 10:14 Chief complaint: EMS states: toned out to patient home due to sudden onset of kr3 epigastric pain. Patient has had a couple other episode prior to today that were similar but passed. Patient induced vomiting to try and relieve the pain without success. Patient has had previous surgery of fundoplication. Coronavirus screen: Vaccine status: Patient reports receiving the 2nd dose of the covid vaccine. Client denies travel out of the [place] in the last 14 days. Ebola Screen: Patient denies travel to an Ebola-affected area in the 21 days before illness onset. Initial Sepsis Screen: Does the patient meet any 2 criteria? No. Patient's initial sepsis screen is negative. Does the patient have a suspected source of infection? No. Patient's initial sepsis screen is negative. Risk Assessment: Do you want to hurt yourself or someone else? Patient reports no desire to harm self or others. Onset of symptoms was September 28, 2022. 10:14 Method Of Arrival: EMS kr3 10:14 Acuity: ALMA 3 kr3 Triage Assessment: 10:20 General: Appears in no apparent distress. uncomfortable, Behavior is calm, cooperative, kr3 appropriate for age. Pain: Complains of pain in epigastric area. Historical: - Allergies: 10:19 Iodex; kr3 10:19 Iodinated Contrast Media - IV Dye; kr3 - PMHx: 10:19 Back pain; High Cholesterol; Hypertension; Lymphadema; kr3 - Immunization history:: Adult Immunizations not up to date. - Social history:: Smoking status: Patient denies any tobacco usage or history of. - Family history:: not pertinent. Screenin:20 [facility] ED Fall Risk Assessment (Adult) History of falling in the last 3 months, ld1 including since admission No falls in past 3 months (0 pts). [facility] ED Fall Risk Assessment (Adult) History of falling in the last 3 months, including since admission. Abuse screen: Denies threats or abuse. Denies injuries from another. Nutritional screening: No deficits noted. Tuberculosis screening: No symptoms or risk factors identified. Assessment: 10:20 General: Appears in no apparent distress. comfortable, Behavior is calm, cooperative, ld1 appropriate for age. Pain: Complains of pain in epigastric area Pain does not radiate. Pain currently is 2 out of 10 on a pain scale. at worst was 10 out of 10 on a pain scale. Quality of pain is described as throbbing. Neuro: Level of Consciousness is awake, alert, obeys commands, Oriented to person, place, time, situation. Cardiovascular: Capillary refill < 3 seconds Patient's skin is warm and dry. Rhythm is sinus rhythm. Respiratory: Airway is patent Respiratory effort is even, unlabored. GI: Abdomen is flat, non-distended. GI: Reports upper abdominal pain. : No signs and/or symptoms were reported regarding the genitourinary system. EENT: No signs and/or symptoms were reported regarding the EENT system. Derm: No signs and/or symptoms reported regarding the dermatologic system. Musculoskeletal: No signs and/or symptoms reported regarding the musculoskeletal system. 10:21 Reassessment: patient has pain pump in the lower right quadrant of the abdomen . kr3 Vital Signs: 10:14 BP 135 / 78; Pulse 74; Resp 18; Pulse Ox 100% ; Weight 90.72 kg; Height 5 ft. 11 in. kr3 (180.34 cm); 10:20 BP 135 / 78; Pulse 80; Resp 18; Temp 97.7; Pulse Ox 100% on R/A; ld1 10:22 Temp 97.9; kr3 10:33 BP 151 / 88; Pulse 81; Resp 18; Pulse Ox 99% on R/A; kr3 10:14 Body Mass Index 27.89 (90.72 kg, 180.34 cm) kr3 ED Course: 10:14 Patient arrived in ED. kr3 10:14 Ren Granado MD is Attending Physician. rt 10:19 Triage completed. kr3 10:20 Sayda Mesa RN is Primary Nurse. ld1 10:20 Maintain EMS IV. Dressing intact. Good blood return noted. Site clean \T\ dry. Gauge \T\ ld 1 site: 20G LAC. 10:21 Arm band placed on right wrist. Patient placed in an exam room, on a stretcher. kr3 10:30 Lipase Sent. kr3 10:30 CMP Sent. kr3 10:30 CBC with Diff Sent. kr3 10:30 Troponin High Sensitivity Sent. kr3 11:37 CT Abd/Pelvis - Without Contrast In Process Unspecified. EDMS 12:20 No provider procedures requiring assistance completed. IV discontinued, intact, vg1 bleeding controlled, No redness/swelling at site. Pressure dressing applied. Administered Medications: 11:19 Not Given (change in plann): Pepcid (famotidine) 20 mg IVP once; dilute with 10 mL 0.9% rt NaCl; give over 2 minutes 11:19 Not Given (change inplann): SOLU-Medrol (methylPrednisoLONE) 125 mg IVP once rt 11:19 Not Given (change in med plann): Benadryl (diphenhydrAMINE) 50 mg IVP once rt Medication: 12:21 VIS not applicable for this client. vg1 Outcome: 11:57 Discharge ordered by MD. rt 12:20 Discharged to home via wheelchair, with family. vg1 12:20 Condition: good 12:20 Discharge instructions given to patient, family, Instructed on discharge instructions, follow up and referral plans. medication usage, Demonstrated understanding of instructions, follow-up care, medications, Prescriptions given X 3. 12:21 Patient left the ED. vg1 Signatures: Dispatcher [employer] EDMS Kathrine Rodriguez RN RN vg1 Sayda Mesa RN RN ld1 Jackie Fernández RN RN kr3 Ren Granado MD MD rt Corrections: (The following items were deleted from the chart) 10:20 10:19 PMHx: Diabetes - IDDM; kr3 kr3
--- NOTE | 2022-09-28 11:58 | EDPHYS ---
Physician Documentation [facility] Name: Vikash Forbes Jr Age: 62 yrs Sex: Male : 1960 Arrival Date: 09/28/2022 Time: 10:14 Bed 2 Private MD: [facility] Physician Ren Granado HPI: 09/28 10:35 This 62 yrs old Male presents to ER via EMS with complaints of Abdominal pain. rt 10:35 The patient presents with abdominal pain in the epigastric area. Onset: The rt symptoms/episode began/occurred 1 hour(s) ago. The symptoms do not radiate. Associated signs and symptoms: none. The symptoms are described as sharp. Modifying factors: The symptoms are alleviated by nothing. Severity of pain: At its worst the pain was severe in the emergency department the pain has improved markedly. Patient presents to the ED with an acute onset of epigastric pain starting about an hour prior to arrival. EMS was called, patient received Toradol by EMS. Patient states his pain is only minimal at this time. Denies other acute complaints at this time. He states that he has had these episodes 2 times previously, never this severe. The patient denies aggravating or alleviating factors otherwise. Pain is sharp in nature, nonradiating, no other aggravating alleviating factors.. Historical: - Allergies: 10:19 Iodex; kr3 10:19 Iodinated Contrast Media - IV Dye; kr3 - PMHx: 10:19 Back pain; High Cholesterol; Hypertension; Lymphadema; kr3 - Immunization history:: Adult Immunizations not up to date. - Social history:: Smoking status: Patient denies any tobacco usage or history of. - Family history:: not pertinent. ROS: 10:35 Constitutional: Negative for fever, chills, and weight loss, Eyes: Negative for injury, rt pain, redness, and discharge, Neck: Negative for injury, pain, and swelling, Cardiovascular: Negative for chest pain, palpitations, and edema, Respiratory: Negative for shortness of breath, cough, wheezing, and pleuritic chest pain, MS/Extremity: Negative for injury and deformity, Skin: Negative for injury, rash, and discoloration, Neuro: Negative for headache, weakness, numbness, tingling, and seizure, Psych: Negative for depression, anxiety, suicide ideation, homicidal ideation, and hallucinations. 10:35 Abdomen/GI: Positive for abdominal pain, Negative for abdominal pain. Exam: 10:35 Constitutional: This is a well developed, well nourished patient who is awake, alert, rt and in no acute distress. Head/Face: Normocephalic, atraumatic. Eyes: Pupils equal round and reactive to light, extra-ocular motions intact. Lids and lashes normal. Conjunctiva and sclera are non-icteric and not injected. Cornea within normal limits. Periorbital areas with no swelling, redness, or edema. Chest/axilla: Normal chest wall appearance and motion. Nontender with no deformity. No lesions are appreciated. Cardiovascular: Regular rate and rhythm with a normal S1 and S2. No gallops, murmurs, or rubs. Normal PMI, no JVD. No pulse deficits. Respiratory: Lungs have equal breath sounds bilaterally, clear to auscultation and percussion. No rales, rhonchi or wheezes noted. No increased work of breathing, no retractions or nasal flaring. MS/ Extremity: Pulses equal, no cyanosis. Neurovascular intact. Full, normal range of motion. Neuro: Awake and alert, GCS 15, oriented to person, place, time, and situation. Cranial nerves II-XII grossly intact. Motor strength 5/5 in all extremities. Sensory grossly intact. Cerebellar exam normal. Normal gait. Psych: Awake, alert, with orientation to person, place and time. Behavior, mood, and affect are within normal limits. 10:35 Abdomen/GI: Minimal epigastric tenderness without rebound, guarding, distention, no other areas of tenderness, morphine pump noted to the right lower quadrant.. 10:35 ECG was reviewed by the Attending Physician. rt Vital Signs: 10:14 BP 135 / 78; Pulse 74; Resp 18; Pulse Ox 100% ; Weight 90.72 kg; Height 5 ft. 11 in. kr3 (180.34 cm); 10:20 BP 135 / 78; Pulse 80; Resp 18; Temp 97.7; Pulse Ox 100% on R/A; ld1 10:22 Temp 97.9; kr3 10:33 BP 151 / 88; Pulse 81; Resp 18; Pulse Ox 99% on R/A; kr3 10:14 Body Mass Index 27.89 (90.72 kg, 180.34 cm) kr3 MDM: 10:15 Patient medically screened. rt 11:58 Differential diagnosis: Gastritis, ulcer, perforated ulcer, pancreatitis, acute rt coronary syndrome. Data reviewed: vital signs, nurses notes, lab test result(s), EKG, radiologic studies. I considered the following discharge prescriptions or medication management in the emergency department Pain Medications: At this time, prescription pain medications are not recommended. Response to treatment: the patient's symptoms have resolved after treatment. ED course: Patient presents to the ED with an epigastric pain. The pain is resolved upon arrival to the ED, he has a nonperitoneal abdominal examination. CT scan shows tiny bilateral nephrolithiasis, small umbilical and inguinal hernias. I do not believe this is the etiology of his presentation. I informed patient of these findings. Cardiac etiology was considered, EKG and troponin are negative. Symptoms are not consistent with an acute coronary syndrome. Do not believe that he requires admission for further cardiac eval at this time. Patient is currently taking pantoprazole, will represcribe this for him, give Carafate and Bentyl. 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 Return precautions for unrelieved pain were discussed.. 09/28 10:25 Order name: CBC with Diff; Complete Time: 10:56 rt 09/28 10:25 Order name: CMP; Complete Time: 11:21 rt 09/28 10:25 Order name: Lipase; Complete Time: 11:21 rt 09/28 10:25 Order name: Troponin High Sensitivity; Complete Time: 11:21 rt 09/28 11:20 Order name: CT Abd/Pelvis - Without Contrast; Complete Time: 11:49 rt 09/28 10:25 Order name: EKG; Complete Time: 10:26 rt 09/28 10:25 Order name: EKG - Nurse/Tech; Complete Time: 10:32 rt EC:35 Rate is 62 beats/min. Rhythm is regular, Normal Sinus Rhythm with No ectopy. QRS [place] rt is Normal. MO interval is normal. QRS interval is normal. QT interval is normal. No Q waves. T waves are Normal. No ST changes noted. Clinical impression: Normal ECG. Interpreted by me. Administered Medications: 11:19 Not Given (change in plann): Pepcid (famotidine) 20 mg IVP once; dilute with 10 mL 0.9% rt NaCl; give over 2 minutes 11:19 Not Given (change inplann): SOLU-Medrol (methylPrednisoLONE) 125 mg IVP once rt 11:19 Not Given (change in med plann): Benadryl (diphenhydrAMINE) 50 mg IVP once rt Disposition Summary: 09/28/22 11:57 Discharge Ordered Location: Home rt Problem: an ongoing problem rt Symptoms: are resolved rt Condition: Stable rt Diagnosis - Epigastric pain rt Followup: rt - With: Private Physician - When: 2 - 3 days - Reason: Discharge Instructions: - Discharge Summary Sheet rt - Abdominal Pain, Adult rt Forms: - Medication Reconciliation Form rt - Thank You Letter rt - Antibiotic Education rt - Prescription Opioid Use rt Prescriptions: - Carafate 1 gram Oral Tablet - take 1 tablet by ORAL route 4 times per day; 21 tablet; Refills: 0, Product rt Selection Permitted - Protonix 40 mg Oral Tablet - take 1 tablet by ORAL route once daily; 30 tablet; Refills: 0, Product rt Selection Permitted - dicyclomine 10 mg Oral Capsule - take 1 capsule by ORAL route 3 times per day; 18 capsule; Refills: 0, Product rt Selection Permitted Signatures: Dispatcher [employer] EDMS Jackie Fernández RN RN kr3 Ren Granado MD MD rt Corrections: (The following items were deleted from the chart) 10:20 10:19 PMHx: Diabetes - IDDM; jason3 kr3 11:26 10:29 Abdomen Pelvis W Con+CT.RAD.BRZ ordered. EDMS EDMS 11:26 11:26 Abdomen ordered. EDMS EDMS
[2022-09-28 12:28] VITALS: TEMP 97.9
[2022-09-28 12:29] VITALS: BP 151/88; O2SAT 99
--- NOTE | 2022-09-28 15:02 | EKG ---
Test Date: 2022-09-28 Test Time: 10:29:28 Tester Compressed Gases: ELISHA MEASUREMENT RESULTS: Intervals: Rate: 62 NM: 122 QRSD: 84 QT: 378 QTc: 383 [place]: P: 27 NM: 122 QRS: 9 T: 18 INTERPRETIVE STATEMENTS: Normal sinus rhythm Low voltage QRS Borderline ECG Compared to ECG 09/14/2017 15:36:32 Low QRS voltage now present T-wave abnormality no longer present Electronically Signed On 09-28-22 15:02:16 NUCLEAR LOGGING ENGINEER by Eliecer Sullivan
== END 2022-09-28 12:21 | disposition home or self-care (01) ==
LOC: ER 10:08
DX: R10.13 Epigastric pain (principal); I10 Essential (primary) hypertension; Z91.041 Radiographic dye allergy status; Z91.048 Other nonmedicinal substance allergy status
CPT/HCPCS: 93005; 85025; 36415; 84484; 83690; 80053; 74176; J2930; J1200

== ENCOUNTER 2024-11-26 20:14 | Emergency (ER) | payer MEDICARE, OTHER ==
--- OUTSIDE RECORDS SUMMARY | 2024-11-26 20:19 | XMS REPORT | Continuity of Care Document ---
Author Name Unknown Address [address] [facility] [address] [place] [address] [facility] Address [address] [facility] [place] [address] Care Team Providers Care Trauma Surgeon Name Role Phone Allyn Sanchez Attending Clinician Unavaila Arturo Alvarez Attending Clinician Unavailable Robert Don Attending Clinician Unavailable Gian Henson Attending Clinician Nani Garcia Attending Clinician Ember Anderson Attending Clinician [phone] Buddy_R Attending Clinician Unavailable Cleveland Arreaga Attending Clinician Unavailab le GAYLORD_S Attending Clinician Unavailable Rashmi-Mbayo_A_AH Attending Clinician Unavailable Buddy_R Admitting Clinician Unavailable Physician, No Primary or Family Admitting Clinic junaid Unavailable GAYLORD_S Admitting Clinician Unavailable Rashmi-Mbayo_A_AH Admitting Clinician Unavailable Payers Payer Name Policy Type Policy Number Effective Date Expirati on Date Source [facility] (MEDICARE REPLACEMENT HMO) [id number] 2021 00:00:00 [place] [id number] [facility] [place] [id number] Commo n [facility] [employer] [place] Angelica MART (MEDICARE REPLACEMENT/ADVAN TAGE - HMO) [id number] 2019 00:00:00 Wellcare C1 [id number] [facility] Wellcare C1 [id number] [facility] Wellcare C1 [id number] [facility] Wellcare C1 [id number] [facility] Wellcare C1 [id number] [facility] Wellcare C1 [id number] [facility] Wellcare C1 [id number] [facility] Wellcare C1 [id number] [facility] Wellcare C1 [id number] [facility] Wellcare C1 [id number] [facility] Wellcare C1 [id number] [facility] Wellcare C1 [id number] [facility] Problems Condition Name Condition Details Condition Category Status Onset Date Resolution Date Last Treatment Date Treating Clinician Comments Source Diabetes mellitus Diabetes Mellitus Problem Active 10-21 00:00: 00 [facility] Senile purpura Senile Purpura Problem Active 1 00:00: 00 [facility] Neuropathy due to diabetes mellitus Neuropathy Due to Diabetes Mellitus Problem Active 4-20 00:00: 00 [facility] Recurrent major depressive episodes, moderate Recurrent Major Depressive Episodes, Moderate Problem Active 10-18 00:00: 00 [facility] Gastroesop hageal reflux disease Gastroesop hageal Reflux Disease Problem Active 10-18 00:00: 00 [facility] Benign prostatic hyperplasi a Benign Prostatic Hyperplasi a Problem Active 10-18 00:00: 00 [facility] Chronic low back pain Chronic Low Back Pain Problem Active 10-18 00:00: 00 [facility] Vertigo Vertigo Problem Active 10-18 00:00: 00 [facility] Hyperlipid emia due to type 2 diabetes mellitus Hyperlipid emia Due to Type 2 Diabetes Mellitus Problem Active 10-18 00:00: 00 [facility] Hypertensi ve disorder Hypertensi ve Disorder Problem Active 04-14 00:00: 00 [facility] [id number] Balanitis Problem Active Comm on [facility] [id number] Lower urinary tract symptoms (LUTS) Problem Active [facility] [id number] Kidney stones Problem Active [facility] [id number] Subacromia l bursitis of right shoulder joint Problem Active [facility] [id number] jail (current) use of insulin Problem Active [facility] [id number] Impingemen t syndrome of right shoulder Problem Active [facility] [id number] Type 2 diabetes mellitus with hyperglyce deisy Problem Active [facility] [id number] Essential hypertensi on Problem Active [facility] [id number] Current moderate episode of major depressive disorder without prior episode Problem Active [facility] [id number] Benign prostatic hyperplasi a with lower urinary tract symptoms Problem Active [facility] [id number] Osteoarthr itis of lumbar spine, unspecifie d spinal osteoarthr itis complicati on status Problem Active [facility] [id number] Noncomplia nce with dietary restrictio n Problem Active [facility] [id number] Mixed hyperlipid emia Problem Active [facility] [id number] Hypercalce deisy Problem Active [facility] [id number] Other chronic pain Problem Active [facility] [id number] Diabetic polyneurop athy associated with type 2 diabetes mellitus Problem Active [facility] [id number] GERD without esophagiti s Problem Active [facility] [id number] Dependence on other enabling machines and devices Problem Active [facility] [id number] Obstructiv e sleep apnea (adult) (pediatric ) Problem Active [facility] [id number] Tinnitus of left ear Problem Active [facility] Allergies, Adverse Reactions, Alerts Allergy Name Allergy Type Status Severity Reaction(s) Onset Date Inactive Date Treating Clinician Comments Source iodine DA Active SV RASH,SOB 11-16 00:00: 00 [facility] Iodine Allergy to substanc e Active Severe Anaphylaxis 09-14 00:00: 00 [facility] Social History Social Habit Start Date Stop Date Quantity Comments Source History of Tobacco Use [facility] Sex Assigned At [facility] Smoking Status Start Date Stop Date Source Unknown if ever smoked Commo n [facility] Former Smoker 2020-11-24 00:00:00 2020-11-24 00:00:00 [facility] Medications Ordered Medication Name Filled Medication Name Start Date Stop Date Current Medication? Ordering Clinician Indication Dosage Frequency Signature (SIG) Comments Components Source Amoxicillin -Pot Clavulanate 875-125 MG Amoxicillin -Pot Clavulanate 875-125 MG 12-29 00:00: 00 01-08 00:00 :00 No 1{table t} BID Amoxicilli n-Pot Clavulanat e 875-125 MG Clotrimazol e-Betametha sone 1-0.05 % Clotrimazol e-Betametha sone 1-0.05 % 11-24 00:00: 00 02-16 00:00 :00 No 1{appli cation} BID Clotrimazo le-Betamet hasone 1-0.05 % Clotrimazol e-Betametha sone 1-0.05 % Clotrimazol e-Betametha sone 1-0.05 % 11-24 00:00: 00 02-16 00:00 :00 No 1{appli cation} BID Clotrimazo le-Betamet hasone 1-0.05 % Pen Bradley 3/16" 31G X 5 MM Pen Bradley 3/16" 31G X 5 MM 2019-09 00:00: 00 No TID Pen Bradley 3/16" 31G X 5 MM Pen Bradley 3/16" 31G X 5 MM Pen Bradley 3/16" 31G X 5 MM 2019-09 00:00: 00 No TID Pen Bradley 3/16" 31G X 5 MM Pen Bradley 3/16" 31G X 5 MM Pen Bradley 3/16" 31G X 5 MM 2019-09 00:00: 00 No TID Pen Bradley 3/16" 31G X 5 MM Pen Bradley 3/16" 31G X 5 MM Pen Bradley 3/16" 31G X 5 MM 2019-09 00:00: 00 No TID Pen Bradley 3/16" 31G X 5 MM Amoxicillin -Pot Clavulanate 875-125 MG Amoxicillin -Pot Clavulanate 875-125 MG 2019-09 014 00:00: 00 07-05 00:00 :00 No 1{table t} BID Amoxicilli n-Pot Clavulanat e 875-125 MG MetFORMIN HCl ER MetFORMIN HCl ER 04-09 00:00: 00 Yes Robert Don 2 tabs with meals [facility] fenofibrate 160 mg tablet Take 1 tablet every day by oral route. fenofibrate 160 mg tablet Take 1 tablet every day by oral route. No 1 Q1D fenofibrat e 160 mg tablet Take 1 tablet every day by oral route. [facility] fentanyl (PF) 10 mcg/mL in 0.9 % sodium chloride inject.pump reservoir Take by injection route. fentanyl (PF) 10 mcg/mL in 0.9 % sodium chloride inject.pump reservoir Take by injection route. No fentanyl (PF) 10 mcg/mL in 0.9 % sodium chloride inject.pum p reservoir Take by injection route. [facility] Levemir FlexTouch U-100 Insulin 100 unit/mL (3 mL) subcutaneou s pen Inject 60 units by subcutaneou s route. Levemir FlexTouch U-100 Insulin 100 unit/mL (3 mL) subcutaneou s pen Inject 60 units by subcutaneou s route. No 60unit( s) Levemir FlexTouch U-100 Insulin 100 unit/mL (3 mL) subcutaneo us pen Inject 60 units by subcutaneo us route. [facility] losartan 50 mg tablet Take 1 tablet every day by oral route. losartan 50 mg tablet Take 1 tablet every day by oral route. No 1 Q1D losartan 50 mg tablet Take 1 tablet every day by oral route. [facility] meclizine 25 mg tablet Take 1 tablet 3 times a day by oral route. meclizine 25 mg tablet Take 1 tablet 3 times a day by oral route. No 1 TID meclizine 25 mg tablet Take 1 tablet 3 times a day by oral route. [facility] meloxicam 15 mg tablet Take 1 tablet every day by oral route as needed. meloxicam 15 mg tablet Take 1 tablet every day by oral route as needed. No 1 Q1D meloxicam 15 mg tablet Take 1 tablet every day by oral route as needed. [facility] [place] 325 mg-7.5 mg tablet Take 1 tablet every 6 hours by oral route. [place] 325 mg-7.5 mg tablet Take 1 tablet every 6 hours by oral route. No 1 Q6H [place] 325 mg-7.5 mg tablet Take 1 tablet every 6 hours by oral route. [facility] pantoprazol e 40 mg tablet,catherine yed release Take 1 tablet every day by oral route. pantoprazol e 40 mg tablet,catherine yed release Take 1 tablet every day by oral route. No 1 Q1D pantoprazo le 40 mg tablet,del ayed release Take 1 tablet every day by oral route. [facility] pravastatin 40 mg tablet Take 1 tablet every day by oral route. pravastatin 40 mg tablet Take 1 tablet every day by oral route. No 1 Q1D pravastati n 40 mg tablet Take 1 tablet every day by oral route. [facility] pregabalin 50 mg capsule Take 1 capsule 3 times a day by oral route. pregabalin 50 mg capsule Take 1 capsule 3 times a day by oral route. No 1capsul e(s) TID pregabalin 50 mg capsule Take 1 capsule 3 times a day by oral route. [facility] sertraline 100 mg tablet Take 1 tablet every day by oral route. sertraline 100 mg tablet Take 1 tablet every day by oral route. No 1 Q1D sertraline 100 mg tablet Take 1 tablet every day by oral route. [facility] tamsulosin 0.4 mg capsule Take 1 capsule every day by oral route. tamsulosin 0.4 mg capsule Take 1 capsule every day by oral route. No 1capsul e(s) Q1D tamsulosin 0.4 mg capsule Take 1 capsule every day by oral route. [facility] Victoza 3-Irvin 0.6 mg/0.1 mL (18 mg/3 mL) subcutaneou s pen injector Inject 1.8 mg by subcutaneou s route before meals. Victoza 3-Irvin 0.6 mg/0.1 mL (18 mg/3 mL) subcutaneou s pen injector Inject 1.8 mg by subcutaneou s route before meals. No 1.8mg Victoza 3-Irvin 0.6 mg/0.1 mL (18 mg/3 mL) subcutaneo us pen injector Inject 1.8 mg by subcutaneo us route before meals. [facility] meloxicam 15 mg tablet meloxicam 15 mg tablet Yes [facility] sertraline hcl 100 mg tablet sertraline hcl 100 mg tablet Yes [facility] gabapentin 100 mg capsule gabapentin 100 mg capsule Yes [facility] Pregabalin Pregabalin Yes Robert Don 1 capsule [facility] Losartan Potassium Losartan Potassium Yes Robert Don TAKE 1 TABLET(50 MG) BY MOUTH DAILY [facility] Meloxicam Meloxicam Yes Robert Don TAKE 1 TABLET BY MOUTH ONCE A DAY [facility] Pantoprazol e Sodium Pantoprazol e Sodium Yes Robert Don TAKE 1 TABLET(40 MG) BY MOUTH TWICE DAILY [facility] Victoza Victoza Yes Robert Don not defined [facility] buspirone hcl 5 mg tablet buspirone hcl 5 mg tablet Yes [facility] Tamsulosin HCl Tamsulosin HCl Yes Robert Don not defined [facility] Fenofibrate Fenofibrate Yes Robert Don TAKE 1 TABLET(160 MG) BY MOUTH DAILY WITH A MEAL [facility] Tamsulosin HCl Tamsulosin HCl Yes Robert Don TAKE 1 CAPSULE BY MOUTH EVERY DAY [facility] Morphine Sulfate Morphine Sulfate Yes Robert Don as directed [facility] Levemir FlexTouch Levemir FlexTouch Yes Robert Don as directed [facility] Sertraline HCl Sertraline HCl Yes Robert Don not defined [facility] Meclizine HCl Meclizine HCl Yes Robert Don not defined [facility] Pantoprazol e Sodium Pantoprazol e Sodium Yes Robert Don not defined [facility] Pravastatin Sodium Pravastatin Sodium Yes Robert Don not defined [facility] Meloxicam Meloxicam Yes Robert Don not defined [facility] morphine sulfate (concentrat e) 100 mg/5ml solution morphine sulfate (concentrat e) 100 mg/5ml solution Yes [facility] Fenofibrate Fenofibrate Yes Robert Don not defined [facility] Losartan Potassium Losartan Potassium Yes Robert Don not defined [facility] Hydrocodone -Acetaminop hen Hydrocodone -Acetaminop hen Yes Robert Don not defined [facility] Tamsulosin HCl 0.4 MG Tamsulosin HCl 0.4 MG No 1{capsu le} QD Tamsulosin HCl 0.4 MG Pravastatin Sodium 40 MG Pravastatin Sodium 40 MG No 1{table t} QD Pravastati n Sodium 40 MG Morphine Sulfate 10 MG/0.7ML Morphine Sulfate 10 MG/0.7ML No Morphine Sulfate 10 MG/0.7ML Levemir FlexTouch 100 UNIT/ML Levemir FlexTouch 100 UNIT/ML No BID Levemir FlexTouch 100 UNIT/ML Losartan Potassium 50 MG Losartan Potassium 50 MG No 1{table t} QD Losartan Potassium 50 MG Sertraline HCl 100 MG Sertraline HCl 100 MG No 1{table t} QD Sertraline HCl 100 MG Pregabalin 50 MG Pregabalin 50 MG No 1{capsu le} TID Pregabalin 50 MG losartan potassium 25 mg tablet losartan potassium 25 mg tablet Yes [facility] Hydrocodone -Acetaminop hen 7.5-325 MG Hydrocodone -Acetaminop hen 7.5-325 MG No 1{table t_as_ne eded} TID Hydrocodon e-Acetamin ophen 7.5-325 MG Meclizine HCl 25 MG Meclizine HCl 25 MG No Meclizine HCl 25 MG Fenofibrate 160 MG Fenofibrate 160 MG No 1{table t} QD Fenofibrat e 160 MG Meloxicam 15 MG Meloxicam 15 MG No 1{table t} QD Meloxicam 15 MG Victoza 18 MG/3ML Victoza 18 MG/3ML No QD Victoza 18 MG/3ML Pantoprazol e Sodium 40 MG Pantoprazol e Sodium 40 MG No 2{table ts} BID Pantoprazo le Sodium 40 MG MetFORMIN HCl ER 500 MG MetFORMIN HCl ER 500 MG No BID MetFORMIN HCl ER 500 MG MetFORMIN HCl ER 500 MG MetFORMIN HCl ER 500 MG No BID MetFORMIN HCl ER 500 MG Tamsulosin HCl 0.4 MG Tamsulosin HCl 0.4 MG No 1{capsu le} QD Tamsulosin HCl 0.4 MG Pravastatin Sodium 40 MG Pravastatin Sodium 40 MG No 1{table t} QD Pravastati n Sodium 40 MG pravastatin sodium 40 mg tablet pravastatin sodium 40 mg tablet Yes [facility] Hydrocodone -Acetaminop hen 7.5-325 MG Hydrocodone -Acetaminop hen 7.5-325 MG No 1{table t_as_ne eded} TID Hydrocodon e-Acetamin ophen 7.5-325 MG Pantoprazol e Sodium 40 MG Pantoprazol e Sodium 40 MG No 2{table ts} BID Pantoprazo le Sodium 40 MG Losartan Potassium 50 MG Losartan Potassium 50 MG No 1{table t} QD Losartan Potassium 50 MG Meclizine HCl 25 MG Meclizine HCl 25 MG No Meclizine HCl 25 MG Sertraline HCl 100 MG Sertraline HCl 100 MG No 1{table t} QD Sertraline HCl 100 MG Pregabalin 50 MG Pregabalin 50 MG No 1{capsu le} TID Pregabalin 50 MG MetFORMIN HCl ER 500 MG MetFORMIN HCl ER 500 MG No BID MetFORMIN HCl ER 500 MG Meloxicam 15 MG Meloxicam 15 MG No 1{table t} QD Meloxicam 15 MG Morphine Sulfate 10 MG/0.7ML Morphine Sulfate 10 MG/0.7ML No Morphine Sulfate 10 MG/0.7ML Levemir FlexTouch 100 UNIT/ML Levemir FlexTouch 100 UNIT/ML No BID Levemir FlexTouch 100 UNIT/ML pantoprazol e sodium [address] pantoprazol e sodium [address] Yes [facility] Victoza 18 MG/3ML Victoza 18 MG/3ML No QD Victoza 18 MG/3ML Fenofibrate 160 MG Fenofibrate 160 MG No 1{table t} QD Fenofibrat e 160 MG Morphine Sulfate 10 MG/0.7ML Morphine Sulfate 10 MG/0.7ML No Morphine Sulfate 10 MG/0.7ML Pregabalin 50 MG Pregabalin 50 MG No 1{capsu le} TID Pregabalin 50 MG Pravastatin Sodium 40 MG Pravastatin Sodium 40 MG No 1{table t} QD Pravastati n Sodium 40 MG Sertraline HCl 100 MG Sertraline HCl 100 MG No 1{table t} QD Sertraline HCl 100 MG Tamsulosin HCl 0.4 MG Tamsulosin HCl 0.4 MG No 1{capsu le} QD Tamsulosin HCl 0.4 MG Levemir FlexTouch 100 UNIT/ML Levemir FlexTouch 100 UNIT/ML No BID Levemir FlexTouch 100 UNIT/ML Morphine Sulfate 10 MG/0.7ML Morphine Sulfate 10 MG/0.7ML No Morphine Sulfate 10 MG/0.7ML Fenofibrate 160 MG Fenofibrate 160 MG No Fenofibrat e 160 MG tamsulosin hcl 0.4 mg capsule tamsulosin hcl 0.4 mg capsule Yes [facility] Meclizine HCl 25 MG Meclizine HCl 25 MG No Meclizine HCl 25 MG MetFORMIN HCl ER 500 MG MetFORMIN HCl ER 500 MG No BID MetFORMIN HCl ER 500 MG Meloxicam 15 MG Meloxicam 15 MG No Meloxicam 15 MG Losartan Potassium 50 MG Losartan Potassium 50 MG No 1{table t} QD Losartan Potassium 50 MG Victoza 18 MG/3ML Victoza 18 MG/3ML No Victoza 18 MG/3ML Pantoprazol e Sodium 40 MG Pantoprazol e Sodium 40 MG No 2{table ts} BID Pantoprazo le Sodium 40 MG Hydrocodone -Acetaminop hen 7.5-325 MG Hydrocodone -Acetaminop hen 7.5-325 MG No 1{table t_as_ne eded} TID Hydrocodon e-Acetamin ophen 7.5-325 MG Pantoprazol e Sodium 40 MG Pantoprazol e Sodium 40 MG No 2{table ts} BID Pantoprazo le Sodium 40 MG Losartan Potassium 50 MG Losartan Potassium 50 MG No 1{table t} QD Losartan Potassium 50 MG Pregabalin 50 MG Pregabalin 50 MG No 1{capsu le} TID Pregabalin 50 MG gabapentin 100 mg capsule gabapentin 100 mg capsule Yes [facility] Pravastatin Sodium 40 MG Pravastatin Sodium 40 MG No 1{table t} QD Pravastati n Sodium 40 MG Sertraline HCl 100 MG Sertraline HCl 100 MG No 1{table t} QD Sertraline HCl 100 MG Levemir FlexTouch 100 UNIT/ML Levemir FlexTouch 100 UNIT/ML No BID Levemir FlexTouch 100 UNIT/ML Tamsulosin HCl 0.4 MG Tamsulosin HCl 0.4 MG No 1{capsu le} QD Tamsulosin HCl 0.4 MG Victoza 18 MG/3ML Victoza 18 MG/3ML No QD Victoza 18 MG/3ML Meclizine HCl 25 MG Meclizine HCl 25 MG No Meclizine HCl 25 MG Meloxicam 15 MG Meloxicam 15 MG No 1{table t} QD Meloxicam 15 MG metFORMIN HCl ER 500 MG metFORMIN HCl ER 500 MG No BID metFORMIN HCl ER 500 MG HYDROcodone -Acetaminop hen 7.5-325 MG HYDROcodone -Acetaminop hen 7.5-325 MG No 1{table t_as_ne eded} TID HYDROcodon e-Acetamin ophen 7.5-325 MG Fenofibrate 160 MG Fenofibrate 160 MG No Fenofibrat e 160 MG buspirone hcl 5 mg tablet buspirone hcl 5 mg tablet Yes [facility] morphine sulfate (concentrat e) 100 mg/5ml solution morphine sulfate (concentrat e) 100 mg/5ml solution Yes [facility] losartan potassium 25 mg tablet losartan potassium 25 mg tablet Yes [facility] pravastatin sodium 40 mg tablet pravastatin sodium 40 mg tablet Yes [facility] morphine sulfate (concentrat e) 100 mg/5ml solution morphine sulfate (concentrat e) 100 mg/5ml solution Yes [facility] pantoprazol e sodium [address] pantoprazol e sodium [address] Yes [facility] tamsulosin hcl 0.4 mg capsule tamsulosin hcl 0.4 mg capsule Yes [facility] pantoprazol e sodium [address] pantoprazol e sodium [address] Yes [facility] losartan potassium 25 mg tablet losartan potassium 25 mg tablet Yes [facility] pregabalin 75 mg capsule pregabalin 75 mg capsule Yes [facility] pravastatin sodium 40 mg tablet pravastatin sodium 40 mg tablet Yes [facility] pantoprazol e sodium 40 mg tablet pantoprazol e sodium 40 mg tablet Yes [facility] tamsulosin hcl 0.4 mg capsule tamsulosin hcl 0.4 mg capsule Yes [facility] Vital Signs Vital Name Observation Time Observation Value Comments Cait posadas height 2021-03-27 11:00:00 70 [in_i] Commo n [facility] weight 2021-03-27 11:00:00 220 [lb_av] Comm on [facility] temperature 2021-03-27 11:00:00 98 [degF] Comm on [facility] bmi 2021-03-27 11:00:00 31.56 kg/m2 Comm on [facility] oximetry 2021-03-27 11:00:00 99 % Commo n [facility] blood pressure systolic 2021-03-27 11:00:00 159 mm[Hg] Common [facility] blood pressure diastolic 2021-03-27 11:00:00 84 mm[Hg] Common [facility] height 2021-03-20 09:20:00 70 [in_i] Commo n [facility] weight 2021-03-20 09:20:00 224.9 [lb_av] Co mmon [facility] temperature 2021-03-20 09:20:00 96.2 [degF] Com mon [facility] bmi 2021-03-20 09:20:00 32.27 kg/m2 Comm on [facility] oximetry 2021-03-20 09:20:00 97 % Commo n [facility] blood pressure systolic 2021-03-20 09:20:00 140 mm[Hg] Common [facility] blood pressure diastolic 2021-03-20 09:20:00 82 mm[Hg] Common [facility] height 2020-12-29 16:10:00 70 [in_i] Commo n [facility] weight 2020-12-29 16:10:00 224.9 [lb_av] Co on [facility] temperature 2020-12-29 16:10:00 97.3 [degF] Com [facility] bmi 2020-12-29 16:10:00 32.27 kg/m2 Comm on [facility] oximetry 2020-12-29 16:10:00 100 % Commo n [facility] respiratory rate 2020-12-29 16:10:00 17 /min Common [facility] blood pressure systolic 2020-12-29 16:10:00 134 mm[Hg] Common [facility] blood pressure diastolic 2020-12-29 16:10:00 64 mm[Hg] [facility] height 2020-12-03 09:00:00 70 [in_i] Commo n [facility] weight 2020-12-03 09:00:00 210.4 [lb_av] Co [facility] temperature 2020-12-03 09:00:00 97.3 [degF] Com [facility] bmi 2020-12-03 09:00:00 30.19 kg/m2 Comm on [facility] oximetry 2020-12-03 09:00:00 99 % Commo n [facility] blood pressure systolic 2020-12-03 09:00:00 115 mm[Hg] Common [facility] blood pressure diastolic 2020-12-03 09:00:00 70 mm[Hg] Common [facility] height 2020-11-24 10:30:00 70 [in_i] Commo n [facility] weight 2020-11-24 10:30:00 221 [lb_av] Comm on [facility] temperature 2020-11-24 10:30:00 98 [degF] Comm on [facility] bmi 2020-11-24 10:30:00 31.71 kg/m2 Comm on [facility] oximetry 2020-11-24 10:30:00 97 % Commo n [facility] blood pressure systolic 2020-11-24 10:30:00 145 mm[Hg] [facility] blood pressure diastolic 2020-11-24 10:30:00 77 mm[Hg] Common [facility] height 2020-11-05 10:15:00 70 [in_i] Commo n [facility] weight 2020-11-05 10:15:00 221 [lb_av] Comm on [facility] temperature 2020-11-05 10:15:00 97.8 [degF] Com [facility] bmi 2020-11-05 10:15:00 31.71 kg/m2 Comm on [facility] oximetry 2020-11-05 10:15:00 97 % Commo n [facility] blood pressure systolic 2020-11-05 10:15:00 130 mm[Hg] [facility] blood pressure diastolic 2020-11-05 10:15:00 77 mm[Hg] [facility] height 2020-10-21 10:00:00 70 [in_i] Commo n [facility] weight 2020-10-21 10:00:00 223.7 [lb_av] Co mmon [facility] temperature 2020-10-21 10:00:00 97.3 [degF] Com mon [facility] bmi 2020-10-21 10:00:00 32.09 kg/m2 Comm on [facility] oximetry 2020-10-21 10:00:00 98 % Commo n [facility] respiratory rate 2020-10-21 10:00:00 17 /min Common [facility] blood pressure systolic 2020-10-21 10:00:00 135 mm[Hg] [facility] blood pressure diastolic 2020-10-21 10:00:00 71 mm[Hg] [facility] height 2020-07-10 10:30:00 70 [in_i] [facility] [facility] weight 2020-07-10 10:30:00 221.2 [lb_av] Co mmon [facility] temperature 2020-07-10 10:30:00 97.5 [degF] Com mon [facility] bmi 2020-07-10 10:30:00 31.74 kg/m2 Comm on [facility] oximetry 2020-07-10 10:30:00 98 % Commo n [facility] respiratory rate 2020-07-10 10:30:00 16 /min Common [facility] blood pressure systolic 2020-07-10 10:30:00 138 mm[Hg] Common [facility] blood pressure diastolic 2020-07-10 10:30:00 71 mm[Hg] Common [facility] height 2020-06-25 11:20:00 70 [in_i] Commo n [facility] weight 2020-06-25 11:20:00 230.2 [lb_av] Co mmon [facility] temperature 2020-06-25 11:20:00 98.2 [degF] Com mon [facility] bmi 2020-06-25 11:20:00 33.03 kg/m2 Comm on [facility] oximetry 2020-06-25 11:20:00 98 % Commo n [facility] respiratory rate 2020-06-25 11:20:00 17 /min Common [facility] blood pressure systolic 2020-06-25 11:20:00 139 mm[Hg] [facility] blood pressure diastolic 2020-06-25 11:20:00 70 mm[Hg] Common [facility] Plan of Care Planned Activity Planned Date Details Comments Source Instructions [facility] En[facility] Start Date/Time End Date/Time Encounter Type Admission Type Attending Clinicians Care Facility Care Department Encounter ID Source 2024-10-15 13:30:00 Outpatient Allyn Sanchez STLMLC STLMLC [id number] [facility] 2024-04-16 16:44:00 Outpatient Allyn Sanchez STLMLC STLMLC [id number] [facility] 2023-09-21 16:00:00 Outpatient Allyn Sanchez STLC STLMLC [id number] [facility] 2021-11-05 14:09:01 Outpatient Allyn Sanchez STLC STLMLC [id number] [facility] 2021-10-07 13:23:55 Outpatient Arturo Riggs STLC STLC [id number] [facility] 2021-10-07 13:01:37 Outpatient Don, Robert STLC STLC [id number] [facility] 2021-10-07 12:59:20 Outpatient Don, Robert STLC STLC [id number] [facility] 2021-10-07 12:53:43 Outpatient Don, Robert STLC STLC [id number] [facility] 2021-10-07 12:32:50 Outpatient Don, Robert STLC STLMLC [id number] [facility] 2021-10-07 12:28:53 Outpatient Don, Robert STLMLC STLMLC [id number] [facility] 2021-10-07 11:59:48 Outpatient Don, Robert STLC STLMLC [id number] [facility] 2021-10-07 11:55:12 Outpatient Don, Robert STLC STLMLC [id number] [facility] 2021-10-07 11:53:59 Outpatient Don, Robert STLC STLMLC [id number] [facility] 2021-10-07 11:50:25 Outpatient Don, [facility] [id number] [facility] 2021-10-07 11:33:15 Outpatient Don, [facility] [id number] [facility] 2021-10-07 11:19:27 Outpatient Don, [facility] [id number] [facility] 2021-10-07 11:16:20 Outpatient Don, [facility] [id number] [facility] 2024-06-18 11:46:00 2024-06-18 12:06:00 DOCTOR OSTEOPATHIC Panel-dire cted Gap Closure Gian Henson 2.16.840. [id number] 2.16.840.1. [id number] AJS [facility] 2024-05-25 13:00:00 2024-05-25 13:30:00 D2Me Check-in Gian Henson 2.16.840. [id number] 2.16.840.1. [id number] [facility] 2024-05-23 17:30:00 2024-05-23 18:00:00 Care Osito Garcia 2.16.840. [id number] 2.16.840.1. [id number] EU3 [facility] 2023-06-30 14:30:00 2023-06-30 15:30:00 D2Me Ember Anderson 2.16.840. [id number] 2.16.840.1. [id number] [facility] 2022-12-10 00:00:2022-12-10 00:00:00 Outpatient Adams_R DMG DMG [id number] [facility] 2022-12-10 00:00:00 2022-12-10 00:00:00 Outpatient Adams_R DMG DMG [id number] [facility] 2022-12-10 00:00:00 2022-12-10 00:00:00 Outpatient Adams_R DMG DMG [id number] [facility] 2021-11-18 05:28:00 2021-11-18 05:28:00 Inpatient Cleveland Downing HCACL DAYS [id number] [facility] 2021-08-31 10:18:00 2021-08-31 10:18:00 Outpatient Adams_R DMG DMG [id number] [facility] 2021-08-31 00:00:00 2021-08-31 00:00:00 Outpatient Adams_R DMG DMG [id number] [facility] 2021-05-08 02:30:00 2021-05-08 02:30:00 Outpatient GAYLORD_S DMG DMG [id number] [facility] 2021-03-27 00:00:00 2021-03-27 00:00:00 OFFICE VISIT ESTAB PT LEVEL 2 STLMLC STLMLC [id number] [facility] 2021-03-20 00:00:00 2021-03-20 00:00:00 OFFICE VISIT EST PT LEVEL 3 STLMLC STLMLC [id number] [facility] 2021-03-19 00:00:00 2021-03-19 00:00:00 (TEL) STLMLC STLMLC [id number] [facility] 2021-02-24 11:53:00 2021-02-24 11:53:00 Outpatient GAYLORD_S DMG DMG [id number] [facility] 2021-02-03 12:38:00 2021-02-03 12:38:00 Outpatient Rashmi-Mbayo _A_AH VFP VFP [id number] [facility] 2020-12-29 00:00:00 2020-12-29 00:00:00 OFFICE VISIT EST PT LEVEL 3 STLMLC STLMLC [id number] Common [facility] 2020-12-27 06:00:00 2020-12-27 06:00:00 [place] [id number] [facility] 2020-12-25 11:00:00 2020-12-25 11:00:00 [place] [id number] [facility] 2020-12-03 00:00:00 2020-12-03 00:00:00 OFFICE VISIT EST PT LEVEL 3 STLMLC STLMLC [id number] [facility] 2020-12-02 00:00:00 2020-12-02 00:00:00 (TEL) STLMLC STLMLC [id number] [facility] 2020-11-25 08:15:00 2020-11-25 08:15:00 Outpatient Rashmi-Mbayo _A_AH VFP VFP [id number] [facility] 2020-11-24 00:00:00 2020-11-24 00:00:00 OFFICE VISIT ESTAB PT LEVEL 4 STLMLC STLMLC [id number] [facility] 2020-11-05 00:00:00 2020-11-05 00:00:00 OFFICE VISIT NEW PT LEVEL 3 STLMLC STLMLC [id number] [facility] 2020-10-30 05:52:00 2020-10-30 05:52:00 Outpatient Rashmi-Mbayo _A_AH VFP VFP [id number] [facility] 2020-10-27 02:28:00 2020-10-27 02:28:00 Outpatient Rashmi-Mbayo _A_AH VFP VFP [id number] [facility] 2020-10-21 01:32:00 2020-10-21 01:32:00 Outpatient Rashmi-Mbayo _A_AH VFP VFP [id number] [facility] 2020-10-21 00:00:00 2020-10-21 00:00:00 OFFICE VISIT ESTAB PT LEVEL 4 STLMLC STLMLC [id number] [facility] 2020-10-21 00:00:00 2020-10-21 00:00:00 Blanquita grover, DOCTOR OSTEOPATHIC: [address], [address], [place] [address] , Ph. VFP [place] - [facility] - [email or web address] Direct [id number] [facility] Pract[facility] e 2020-08-22 00:00:00 2020-08-22 00:00:00 (TEL) STLMLC STLMLC [id number] [facility] 2020-08-04 00:00:00 2020-08-04 00:00:00 (TEL) STLMLC STLMLC [id number] [facility] 2020-07-16 00:00:00 2020-07-16 00:00:00 (TEL) STLMLC STLMLC [id number] [facility] 2020-07-10 00:00:00 2020-07-10 00:00:00 OFFICE VISIT ESTAB PT LEVEL 4 STLMLC STLMLC [id number] [facility] 2020-06-25 00:00:00 2020-06-25 00:00:00 OFFICE VISIT EST PT LEVEL 3 STLMLC STLMLC [id number] [facility] 2020-06-16 00:00:00 2020-06-16 00:00:00 (TEL) STLMLC STLMLC [id number] [facility] 2020-04-10 13:26:00 2020-04-10 13:26:00 [facility] [id number] [facility] 2020-04-09 10:15:00 2020-04-09 10:15:00 Outpatient [facility] [id number] [facility] 2020-02-19 10:18:00 2020-02-19 10:18:00 Outpatient [facility] [id number] [facility] 2020-02-11 09:41:00 2020-02-11 09:41:00 Outpatient [facility] [id number] [facility] 2020-02-06 10:22:00 2020-02-06 10:22:00 Outpatient Rashmi-Mbayo _A_AH VFP VFP [id number] [facility] 2020-01-24 11:35:00 2020-01-24 11:35:00 Outpatient [facility] [id number] [facility] 2020-01-11 10:56:00 2020-01-11 10:56:00 Out[facility] [id number] [facility] 2020-01-09 10:00:00 2020-01-09 10:00:00 Outpatient [facility] [id number] [facility] 2020-01-09 09:39:00 2020-01-09 09:39:00 Outpatient Rashmi-Mbayo _A_AH VFP VFP [id number] [facility] 2020-01-04 08:52:00 2020-01-04 08:52:00 Outpatient Rashmi-Mbayo _A_AH VFP VFP [id number] [facility] 2020-01-01 00:00:00 2020-01-01 00:00:00 Blanquita grover, DOCTOR OSTEOPATHIC: [address], [address], [place] [address] , Ph. VFP [place] [facility] - [email or web address]@_ [place] Direct [id number] [facility] 2019-12-11 09:00:00 2019-12-11 09:00:00 [facility] [id number] [facility] 2019-12-04 03:47:00 2019-12-04 03:47:00 Outpatient Rashmi-Mbayo _A_AH VFP VF [id number] [facility] Results Test Description Test Time Test Comments Results Result Co mments Source GLUCOSE [id number] 06:43:00* Test Item Value Reference Range Interpretation Comme nts GLUCOSE BEDSIDE (test code = GLUBED) 114 MG/DL 70-110 H Performed by marlyn petty [employer] gas [employer] at [facility] - XR FLUOROSCOPY 0-60 [id number] 00:00:00 [facility] 1960 Sex: M FAX: Cleveland Evans [phone] [place]: St: REG Name: DWAYNE BUSH [facility] : 1960 Age/S: 61/M [address] [place] [address] Unit #: [id number] Loc: [place] [address] Phys: Cleveland Arreaga MD Acct: [id number] Dis Date: Status: REG [facility] PHONE #: [phone] Exam Date: 11/18/2021 1043 FAX #: [phone] Reason: CHRONIC PAIN SYNDROME, BREAK DOWN OF OTHER NERV EXAMS: CPT CODE: [id number] XR FLUOROSCOPY 0-60 MIN 65991 PROCEDURE INFORMATION: Exam: FL Fluoroscopy, Up to 1 Hour Physician Time; Radiologist Not Present For Fluoroscopy Exam date and time: 11/18/2021 8:21 AM Age: 61 years old Clinical indication: Screening exam; Additional info: Chronic pain syndrome, break down of other nervous system; () TECHNIQUE: Imaging protocol: Fluoroscopy , up to 1 hour physician or other qualified health managed care analyst time. This radiologist did not supervise this procedure. [facility]. Report for radiation dosage reporting and documentation only. COMPARISON: No relevant prior studies available. RADIATION DOSE METRICS: Fluoroscopy time (seconds): seconds= 11 SECONDS Number of fluoro spot images: images= 2 Reference air kerma (FIOR): 8.11 mGy FINDINGS: Proceduralimaging: Lateral intraoperative view thoracolumbar spine. Notes: Fluoroscopy supervised by facility personnel. See also separate procedure report. IMPRESSION: Fluoroscopy dosage documentation. See also separate procedure notes. at 1056 Reported and signed by: Leobardo Aggarwal M.D. CC: Cleveland Arreaga MD Technologist: RT Aga(Orestes) Trnscrd Date/Time/By: 11/18/2021 (7534) : By: [email or web address] Orig Print D/T: S: 11/18/2021 (0121) PAGE 1 Signed ReportNovel Coronavirus 2019 Inhouse 2021-11-17 05:20:00* Test Item Value Reference Range Interpretation Comme nts Novel Coronavirus 2019 Inhouse (test code = COVNONPUI) Negative Negative Positive resul ts are indicative of the presence xxJTGT-TpZ-2 RNA, clinical correlation with patient historyand other diagnostic information is necessary to determinepatient infection status. Positive results do not rule outbacterial infection or co-infection with other viruses. Negative results do not preclude SARS-CoV-2 infection andshould not be used as the sole basis for patient managementdecisions. Negative results must be combined with otherclinical observations, patient history, and epidemiologicalinformation . Detection of SARS-CoV-2 RNA may be affected bysample collection methods, storage conditions, and/or stageof infection. Viral RNA mutations, vaccinations, antiviraltherapeutics, antibiotics, chemotherapeutic orimmunosuppressant drugs have not been evaluated for effectson detection. Results are for the identification of SARS-CoV-2 RNA usingreal-time (RT) polymerase chain reaction (PCR) technologyfor the qualitative detection of nucleic acids from pdoLDHI-LcA-7 virus and diagnosis of SARS-CoV-2 virusinfection. It is an Emergency Use Authorization (EUA) testauthorized by the U.S. FDA. BASIC METABOLIC [id number] 15:42:00* Test Item Value Reference Range Interpretation Comme nts SODIUM (test code = NA) 143 mEq/L 134-147 N POTASSIUM (test code = K) 4.3 mEq/L 3.4-5.0 N CHLORIDE (test code = CL) 109 mEq/L 100-108 H CARBON DIOXIDE (test code = CO2) 25 mEq/l 21-33 N ANION GAP (test code = GAP) 13 0-20 N GLUCOSE (test code = GLU) 111 mg/dL 70-110 H BLOOD UREA NITROGEN (test code = BUN) 12 mg/dL 7-18 N GLOMERULAR FILTRATION RATE (test code = GFR) 76.0 80-90 L Units of measure = ml/min/1.73 m2 CREATININE (test code = CREAT) 1.0 mg/dL 0.6-1.3 N CALCIUM (test code = CA) 9.6 mg/dL 8.0-10.5 N CBC W/AUTO [id number] 15:33:00* Test Item Value Reference Range Interpretation Comme nts WHITE BLOOD CELL (test code = WBC) 7.0 x10 3/uL 4.5-11.0 N RED BLOOD CELL (test code = RBC) 4.53 x10 6/uL 4.00-5.60 N HEMOGLOBIN (test code = HGB) 13.4 g/dL 12.5-16.9 N HEMATOCRIT (test code = HCT) 40.6 % 37.5-50.7 N MEAN CELL VOLUME (test code = MCV) 89.6 fL 81.0-99.0 N MEAN CELL HGB (test code = MCH) 29.6 pg 27.0-33.0 N MEAN CELL HGB CONCETRATION (test code = MCHC) 33.0 g/dL 33.0-37.0 N RED CELL DISTRIBUTION WIDTH CV (test code = RDW) 12.2 % 11.5-14.5 N PLATELET COUNT (test code = PLT) 203 x10 3/uL 150-400 N NEUTROPHIL % (test code = NT%) 62.2 % 56.0-77.0 N LYMPHOCYTE % (test code = LY%) 28.2 % 14.0-32.0 N NEUTROPHIL # (test code = NT#) 4.33 x10 3/uL 2.0-7.6 N LYMPHOCYTE # (test code = LY#) 1.96 x10 3/uL 1.0-3.8 N MANUAL DIFF REQUIRED (test c ode = MDIFF) NO RED CELL DISTRIBUTION WIDTH SD (test code = RDW-SD) 39.8 fL 37.0-54.0 N MEAN PLATELET VOLUME (test c ode = MPV) 10.6 fL 7.0-9.0 H IMMATURE GRANULOCYTE % (test code = IG%) 0.3 % 0.0-2.0 N MONOCYTE % (test code = MO%) 5.7 % 4.8-9.0 N EOSINOPHIL % (test code = EO%) 3.3 % 0.3-3.7 N BASOPHIL % (test code = BA%) 0.3 % 0.0-2.0 N NUCLEATED RBC % (test code = NRBC%) 0.0 % 0-0 N IMMATURE GRANULOCYTE # (test code = IG#) 0.02 x10 3/uL 0.00-0.03 N MONOCYTE # (test code = MO#) 0.40 x10 3/uL 0.1-0.8 N EOSINOPHIL # (test code = EO#) 0.23 x10 3/uL 0.0-0.2 H BASOPHIL # (test code = BA#) 0.02 x10 3/uL 0.0-0.2 N NUCLEATED RBC # (test code = NRBC#) 0.00 x10 3/uL 0.0-0.1 N - XR CHEST 2 [id number] 00:00:00 [facility] : 1960 Sex: M FAX: Cleveland Evans [phone] [place]: St: PRE FAX: Livia Liang Name: DWAYNE BUSH [facility] 1960 Age/S: 61/M [address] [place] [address] Unit #: [id number] Loc: [place], [place] [address]Skyy: Livia Liang DOCTOR OSTEOPATHIC Acct: [id number] Dis Date: Status: PRE [facility] PHONE #: [phone] Exam Date: 11/16/20218 FAX #: [phone] Reason: PREOP EXAMS: CPT CODE: [id number] XR CHEST 2 V 60201 PROCEDURE INFORMATION: Exam: XR Chest Exam date [...] seen in the upper abdomen. IMPRESSION: No acute findings. t 1705 Reported and signed by: Blayne Mathew M.D. CC: Cleveland Arreaga MD; Livia Husain DOCTOR OSTEOPATHIC Technologist: RT Sadi(R) Trnscrd Date/Time/By: 11/16/2021 (1705) : By: [email or web address] Orig Print D/T: S: 11/16/2021 (1705) PAGE 1 Signed Report Notes Date/Time Note Provider Source 2024-06-18 11:46:00 ASSESSMENT SUMMARY DWAYNE BUSH JR is a 64 year old man seen today by [facility] for a [facility] Gap Closure Visit. Patient Discussion ItemsThe patient does not recall and our records do not show evidence of the preventative services listed below. If your records do not show evidence of these services, please provide them to this patient. - Diabetic Retinal Eye exam Additional Comments- Advised to follow up with [facility] as needed. [facility]'s gap closure visits are designed to target a specific condition or preventive measure that has not been addressed [id number]. See below for teaching and instruction given regarding specific diagnoses. Member verbalized understanding to all. Members Preferred Language Northern Irish Patient Currently Located in their home state of [place], YES ENDOCRINE - Diabetes (A1c + Eye + Kidney) Patient most recently completed eye exam assessing for retinopathy?: Unknown or N/A Patient response to support scheduling retinopathy exam: YES Select the patient's preferred (and available) testing method: Create a Stars case to the Clinical Associate team in the 'Care Coordination, Referrals, and Scheduling' tab APPOINTMENT CPT CODE Did you review the patient's prescription and non-prescription drugs, vitamins, herbal remedies, and other supplements, AND is the accompanying medication list documented in the medical record?: No Fraciscoshannan Natividad [facility] 2024-05-25 13:00:00 ASSESSMENT SUMMARY DWAYNE BUSH JR is a 63 year old man seen today by [facility] for a [facility] Comprehensive Visit. Urgent Concerns- No acute concerns Patient Discussion ItemsThe patient does not recall and our records do not show evidence of the preventative services listed below. If your records do not show evidence of these services, please provide them to this patient. - Pt advised of the current flu season. Ordered Today- Pravastatin 40 mg Follow-Ups Scheduled- Pt referred to [facility]pertension [facility] program Additional Comments- Encouraged to continue excellent care with his PCP & Specialists. - Advised to follow up with [facility] as needed. Visit PurposeThese visits are scheduled to augment PCPs to close care and documentation gaps, reconcile medications, help patients make full use of their [facility] benefits and educate patients about their conditions. This visit DOES NOT replace the your Annual Medicare Visit with the patient. The member was encouraged to schedule an AWV with their PCP to review our visit summary & recommendations. See below for teaching and instruction given regarding specific diagnoses. Member verbalized understanding to all. Members Preferred Language Northern Irish Patient Currently Located in their home state of [place], YES DIAGNOSIS [id number] - Chronic kidney disease, stage 3aE66.3 - NhzeeuaxjwN43.26 - Body mass index [BMI] 26.0-26.9, adult PATIENT INTAKE Has the patient had an Annual Wellness Visit this calendar year?: AWV already completed Has the patient received an influenza vaccine this flu season? No DISCUSSED: Educated the patient on the risks and benefits of the influenza vaccine Intake Notes: - Pt advised of the current flu vaccine. MEDICATION RECONCILIATION Did you review the patient's prescription and non-prescription drugs, vitamins, herbal remedies, and other supplements, AND is the accompanying medication list documented in the medical record?: Yes GENERAL ASSESSMENT Feet: 6 Pounds: 192 Patient BMI: 26.04 Dx: E66.3 - Overweight Notes for E66.3: - Status: BMI is between 25-29.9 & is considered overweight. Being overweight may increase your risk of cardiovascular disease. - Education: Consider making lifestyle changes through healthy eating and fitness to improve your overall health and quality of life. - Encouraged to use the [employer] [facility] [place] benefits.DISCUSSED: Dietary counseling was provided Dx: Z68.26 - Body mass index [BMI] 26.0-26.9, adult Notes for Z68.26: - Counseled on the need to avoid processed sugary foods, limit carbohydrates, increase fruit/vegetable intake, portion control - Recommend routine exercise, at least 30 minutes 3-5 days/week as toleratedDISCUSSED: Dietary counseling was provided Supplemental oxygen status: Room Air Supplemental Oxygen Needs: Does not need supplemental oxygen In general, would you say your quality of life is: Poor General Assessment Notes: - Unable to check his BP on today's telehealth visit. Didn't have a monitor available at time of his visit. PHYSICAL EXAM alert, well-nourished, well-developed, NAD: Yes Constitutional Physical Exam Notes: - Overweight good judgement, normal mood, normal affect: Yes oriented x 3, recent memory normal, remote memory normal, normal gait: Yes HEENT Physical Exam Notes: - Wearing glasses Pedal edema: No Cough: Yes no rash, no lesions, no ulcers, no jaundice: Yes MSK Physical Exam Notes: + Back pain Additional Notes: - Limited PE due to telehealth visit MEDICATION REFILLS Please confirm: Are any of the medications listed above within 30 days of their next fill date, or past due of their next fill date?: Yes Select how many medications need to be refilled: 1 FIRST MEDICATION: Select the class of medication that needs to be refilled: Statin Name of statin medication that needs to be refilled: Pravastatin 40 mg AST: 19; ALT: 21; ALP: 116 (09/16/23) Tolerating Pravastatin well with no active liver dz and/or muscle pain Refill Criteria for Statins- No muscle pain with current medication, AND - Does not have active liver disease Does the patient meet criteria for a safe medication refill: Yes Did you provide a prescription refill for this medication?: Yes RENAL - Chronic Kidney Disease Two basic metabolic panels by > 3 months showing an eGFR < 90?: Yes Prescribed a phosphate binder (e.g. Sevelamer), a vitamin D analog (e.g. Calcitriol), or a calcimimetic agent (e.g. Sensipar)?: No Dx: N18.31 - Chronic kidney disease, stage 3a Notes for N18.31: - Status: Due to HTN - eGFR: 58 (05/18/23) - eGFR: 81 (01/11/23) - Symptoms: Without decreased urine output, loss of appetite, or any edema - Current tx: Losartan - Education provided: Continue practicing lifestyle modifications to control HTN: weight loss; exercise routinely as tolerated - Advised to limit salt (sodium). - Do not take any vitamins, mtzj-hxa-nldvpru medicines, or herbal products without talking to your doctor first. - Notify PCP if BP consistently >140/90. - Avoid NSAIDs: ibuprofen (Advil, Motrin), naproxen (Aleve), or similar medicines. - Maintain hydration - Follow up with PCP as scheduled with routine monitoring of renal function.ACTION: Confirm that the patient is on an ALIREZA inhibitor or ARB ENDOCRINE - Diabetes (A1c + Eye + Kidney) Patient most recently completed eye exam assessing for retinopathy?: Unknown or N/A Patient response to support scheduling retinopathy exam: YES Select the patient's preferred (and available) testing method: Create a Stars case to the Clinical Associate team in the 'Care Coordination, Referrals, and Scheduling' tab ASSESSMENT SUMMARY Member medical history, medications, and most recent labs reviewed in [facility] [facility] Discussed medication use and side effects with members prior to prescribing. Drug interactions reviewed: Yes APPOINTMENT CPT CODE* Please indicate how this visit was conducted: Video Please select the video platform used during the visit: [employer] Private Video Room Please record the total amount of time you spent on this patient visit- Total time includes time spent on preparation, speaking with the patient, documentation, and post-visit coordination of care - This is limited to time spent ON THE DATE OF SERVICE (e.g. does not include time spent on days prior to or after the date of service) 30 - 39 minutes Gian Henson [facility], [place] 2024-05-23 17:30:00 ASSESSMENT SUMMARY DWAYNE BUSH JR is a 63 year old man seen today by [facility]. [facility] Visits are designed to target a specific urgent or non-urgent clinical concern. See below for teaching and instruction given regarding specific diagnoses. Member verbalized understanding to all. Members Preferred Language Northern Irish Patient Currently Located in their home state of [place], YES DIAGNOSIS [id number] - Diarrhea, unspecified HISTORY OF PRESENT ILLNESS History of Present Illness: HPI: patient is a 63-year-old gentleman with complicated past medical history who was speaking to one of our member services guides and reported some diarrhea, headache, some confusion and pain in the right leg. Patient was called currently and reports having Improvement in all of his symptoms. Headache is gone States he has not had any diarrhea. Reports that the diarrhea did happen today earlier, had four very watery stools. Denies any watery stools since this morning, says he is drinking, States his urine is clear and he is urinating frequently. Leg pain is chronic and he has had an ultrasound, has a vascular appointment coming up at the end of this month and does have a history of lymphedema OBJECTIVE: Exam: Patient is alert, able to provide medical history. No tachypnea, no indication of distress Vitals: not available Labs reviewed this visit: 58 mL/min/1.73m2 GFR/1.73 sq M.predicted Creatinine-based formula (CKD-EPI 2020) (S/P/Bld) [Vol rate/Area] [04282-5] 2023-05-18 ASSESSMENT AND PLAN: I. Diarrhea- patient reports doing better. States as headache is improved, diarrhea is gone. Patient did report some frequent urination however he states that that is fairly common for him. He denies any discolored urine denies urine odor. Is drinking and tolerating food. Advise patient to follow up with [facility] if needed in the future. Keep follow-up appointments with primary and Specialist. II. III. Care on[facility] visits are completed to assist with care gaps, improve treatment adherence and address urgent clinical needs. This care is intended to augment current PCP care. Voice dictation was used to complete this note. Dx: R19.7 - Diarrhea, unspecified GENERAL REVIEW OF SYSTEMS Review of systems negative unless otherwise indicated above DEVICE ORDERING (active clinical management) APPOINTMENT CPT CODE Did you review the patient's prescription and non-prescription drugs, vitamins, herbal remedies, and other supplements, AND is the accompanying medication list documented in the medical record?: No Please indicate how this visit was conducted: Telephone Visit Time: 5-10 minutes [facility] 2021-11-18 09:23:00 [facility] ([facility]) Brief Discharge Note w/Med Rec REPORT#:[id number] REPORT STATUS: Signed DATE:11/18/21 TIME: 922 PATIENT: DWAYNE BUSH UNIT #: [id number] ROOM/BED: : 60 AGE: 61 SEX: M ATTEND: Cleveland Arreaga MD ADM AUTHOR: Cleveland Arreaga MD * ALL edits or amendments must be made on the electronic/computer document * Med Rec Med Rec Discharge meds: Continue taking these medications: HYDROcodone/APAP (NORCO 10/325) 10 MG-325 MG TAB 1 TABLET ORAL EVERY [address] (PROTONIX) 40 MG TAB.DR 40 MILLIGRAM ORAL DAILY. FENOFIBRATE (TRICOR) 145 MG TAB 145 MILLIGRAM ORAL DAILY. LOSARTAN (COZAAR) 50 MG TAB 50 MILLIGRAM ORAL DAILY. metFORMIN (GLUCOPHAGE) 1,000 MG TAB 1,000 MILLIGRAM ORAL DAILY. Instructions: TAKE WITH MEALS Free Text Med Rec Notes Free Text Med Rec Notes: 61 year old gentleman with HTN, DM, Depression; Chronic lower back pain with in- situ IT pain pump (Sufentanil) had IT pump replacmenet today. POD#0, doing well, ready for discharge home. Will follow-up with me in 1 week. Objective Results Findings/Data: Laboratory Tests: 11/18 11/18 0909 0628 Chemistry POC Glucose (70 - 110 MG/DL) 159 H 114 H General appearance: alert, awake, oriented Head/Eyes: atraumatic, clear cornea Cardiovascular: regular rate rhythm, BP/pulses equal bilat. Respiratory: aerating well, symmetric expansion Extremities: moves all, no edema-all extremities Neuro/[employer]: alert, oriented X 3 Psychiatry: normal affect, normal judgment/insight, normal mood Brief Discharge Note w/Med Rec Discharge to: Home/Self Care Additional Discharge Routines: Attending Follow-Up Diet: Diabetic Follow-up Appointments Attending Physician: Attending Physician: Cleveland Arreaga MD Attending physician follow up timeframe: In 1-2 weeks Special instructions: F/U with Dr. Arreaga in 7 days; Keep abdominal binder on a as much as possible. Keep RLQ bandages completely dry; sponge bathes only. No showers or submersion. Take pain medications (Hydrocodone 10mg) and antibiotics (Clindamycin 300mg PO TID, 7 days) as e-prescribed to pharmacy. at 0924 RPT #:[id number] END OF REPORT [facility] 2021-11-18 09:10:00 [facility] ([facility]) Operative Note REPORT#:[id number] REPORT STATUS: Signed DATE:11/18/21 TIME: 909 PATIENT: SHAHNAZ BUSHL UNIT #: [id number] ROOM/BED: : 60 AGE: 61 SEX: M ATTEND: Cleveland Arreaga MD ADM AUTHOR: Cleveland Arreaga MD * ALL edits or amendments must be made on the electronic/computer document * Operative Report Operative Note Note: 11/18/21 : 09:04am OP Note - Intrathecal Pain Pump Replacement The procedure was performed [facility], done within the past 30 days, was reviewed with patient prior to the procedure and patient denies significant changes. PATIENT NAME: Dwayne Bush DATE OF : 1960 DATE OF PROCEDURE: 11/18/21 SURGEON: Cleveland Arreaga M.D. TOOL OPERATOR SURGEON: Svetlana Perry M.D. PRE- PROCEDURE DIAGNOSIS: Breakdown (mechanical) of other nervous system, infusion pump Encounter for management of infusion pump Chronic pain syndrome POST-PROCEDURE DIAGNOSIS: Breakdown (mechanical) of other nervous system, infusion pump Encounter for management of infusion pump Chronic pain syndrome PROCEDURES: Intrathecal pain pump resorvoir replacement (Medtronic) Fluoroscopic guidance for the above procedure ANESTHESIA: general endotracheal anesthesia ESTIMATED BLOOD LOSS: less than 10mL IV FLUIDS: Per anesthetic record COMPLICATIONS: None PROCEDURE IN DETAIL: The patient was identified in the pre-operative holding area. Indications for, risks, benefits, and alternatives were discussed, all questions were answered, and the patient desired to proceed. Informed consent was obtained, signed and saved to the medical chart. The patient was brought back to the operating room with anesthesia staff and made comfortable in the supine position on the operating table with lower extremities braced, secured and padded. Consent was noted in the chart and a time out procedure was performed. Pressure points were checked and padded awake. Vital signs were stable. Anesthesia was provided as indicated above, and patient was positionied in the left lateral decubitus position with padding. An antiseptic solution was used to clean skin over the right lower abdominal pocket area and posterior spine followed by an antibacterial film and sterile surgical draping. Cefazolin 2g IV (patient < 120kg) was given before incision for antibiotic prophylaxis. Fluoroscopy was used to survey the thoracolumbar spine, and the in-situ IT pump catheter tip identified at the mid-body of T11 vertebral body posteriorly located; images saved. The planned incision site over the right lower abdominal quadrant was injected with lidocaine 1%:bupivacaine 0.25% with epinephrine 1:1 mix. Then an incision was made over the pump pocket on the right lower abdominial area with a 10 blade. Hemostasis was achieved using a [place]. The pump and catheter were dissected out from the pocket and dissection was completed down to fascia, and the pump and catheter were externalized. A 1mL non-lure lock syringe was used to aspirate the in-situ catheter through the pump sideport and confirmed easy flow of CSF and IT pump medication from the intraspinal space, 1.0 mL removed. The pocket site was then irrigated with a Vancomycin anti-bacterial solution three times, while the new Medtronics II pump resorvoir and catheter were primed with IT medication removed from the old pump. The new Medtronics II pump resorvoir was attached to the in-situ catheter at the connector site, and Tyrx Anti-bacterial Absorbable mesh was placed and secured to the posterior side of IT pump in four positions with 2-0 Silk suture. Aspiration of IT fluid at the catheter access site confirmed appropriate connection and smooth/easy CSF flow. The pump was cleaned with antibacteriall Vancomycin wash and placed into the existing flank pocket and secured in place at RLQ abdominal pocket in four locations with 2-0 silk stitches. Vancomycin powder was placed over the pump and in the pobket. Then the pocket was closed in layers with 2-0 Vicryl interrupted stitches and then a 4-0 Monocryl continuous subcuticular stitch for the skin. Additional local anesthetic (about 10mL total) was injected along the abdominal incision for post-procedureal analgesia. Dermabond was used over the incision and covered by sterile silver Ag -impregnated anti-bacterial gauze/bandage. Old IT pump was discarded. Abdominal binder was placed about patient's midsection area over pump. Programming was carried out by the [employer] artist representative: Francisco Javier Roderick Bhatia Product specifications: Device :SynchroMed II; 8637-20 Medtronics Synchomed II Pump Model Number 8637-20mL The patient was transferred to a stretcher and taken to the recovery area in stable condition. The patient tolerated the procedure well, suffered no apparent adverse events, and was discharged to the care of a responsible adult when criteria met. Discharge Note/Follow Up Care: Post-op diagnosis - same as above Discharge - home, with responsible adult Medication - resume home medications a) Post-op medications: Clindamycin 300mg PO TID, 7 days, #21 tablets b) Post-op pain medications: Hydrocodone/APAP 10/325mg PO S0anbvy, prn pain, max 3/day 7 days; # 21 tablets Activity - resume home activity Diet - resume home diet Medication reconciliation - yes Follow-up - as scheduled or within [address] Arreaga, at [facility]. at 0920 RPT #:[id number] END OF REPORT [facility] 2021-11-18 09:07:00 [facility] ([facility]) Brief Op Note REPORT#:[id number] REPORT STATUS: Signed DATE:11/18/21 TIME: 906 PATIENT: DWAYNE BUSH UNIT #: [id number] ROOM/BED: : 60 AGE: 61 SEX: M ATTEND: Cleveland Arreaga MD ADM AUTHOR: Cleveland Arreaga MD * ALL edits or amendments must be made on the electronic/computer document * Op/Inv Proc Note - Brief ORM Surgeries: Surgery Date and Time: 11/18/2021 0730 Proposed Primary Procedure: INTRATHECAL PAIN PUMP INSERTION Pre-procedure diagnosis: Senescent IT Pain Pump; 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 Portrait Artist(s): none (Svetlana Perry M.D.) Anesthesia: general anesthesia Findings: Senescent Medtronic Intrathecal Pain Pump (discarded) Complications: none Estimated blood loss in ml's: none (Minimal) Specimens removed/altered: none (IT In-situ Pain Pump) Disposition: plan to D/C home at 0909 RPT #:[id number] END OF REPORT [facility] 2021-11-16 14:53:00 [id number] [place] [id number] PATIENT NAME: DWAYNE BUSH JR ADMIT DATE: ACCOUNT NO: [id number] ROOM NO: AGE: 61 REPORT TYPE: eELECTROCARDIOGRAM REPORT SEX: M ADMITTING PHYSICIAN: ATTENDING PHYSICIAN:Cleveland Arreaga MD Order: [id number] Test Reason : PREOP Test Date/Time Stamp: TueNov 16 2021 14:53:41 Blood Pressure : / mmHG Vent. Rate : 072 BPM Atrial Rate : 072 BPM P-R Int : 132 ms QRS Dur : 094 ms QT Int : 392 ms P-R-T Axes : 056 046 029 degrees QTc Int : 429 ms Normal sinus rhythm Cannot rule out Anterior infarct , age undetermined Abnormal ECG No previous ECGs available Confirmed by JAS BESS MD ([id number]) on 11/16/2021 3:57:13 PM Referred By: Cleveland Arreaga Confirmed by:JAS BESS MD at 1017 PATIENT NAME: DWAYNE BUSH JR [facility]
[2024-11-26 20:57] LABS: Absolute Basophils 0.1 K/uL (0-0.5); Absolute Eosinophils 0.3 K/uL (0-0.5); Absolute Monocytes 0.4 K/uL (0.1-1.3); Absolute Neutrophil 4.3 K/uL (1.8-8.0); Basophils % 0.8 % (0-1.3); Eosinophils % 3.3 % (0-4.4); Hematocrit 38.4 % (39.6-49.0); Hemoglobin 13.5 g/dL (13.6-17.9); Lymphocytes % 37.3 % (15.3-44.8); MCH 30.9 pg (27.0-35.0); MCHC 35.1 g/dL (32.0-36.0); MCV 88.2 fL (80-100); MPV 8.3 fL (7.6-11.3); Monocytes % 4.7 % (3.3-12.3); Neutrophils % 53.9 % (41.7-73.7); Nucleated Red Blood Cells % 0.1 % (0-0); Platelets 176 thou/uL (152-406); RBC Red Blood Cell Count 4.36 M/uL (4.33-5.43); Red Cell Distribution Width 13.2 % (12.1-15.2)
[2024-11-26] MEDS ORDERED: FENTANYL CITR 100 MCG/2 ML ONE (21:11)
[2024-11-26 21:20] LABS: Albumin 3.6 g/dL (3.4-5.0); Albumin/Globulin Ratio 0.9 (1.1-1.8); Anion Gap 11.2 mEq/L (5.0-15.0); Bilirubin Total 0.4 mg/dL (0.2-1.0); Protein, Total 7.6 g/dL (6.4-8.2)
[2024-11-26 21:21] LABS: Potassium 4.2 mEq/L (3.5-5.1)
--- NOTE | 2024-11-26 21:27 | RAD REPORT ---
EXAM: Scrotum Testicles HISTORY: 64 years Male PAIN COMPARISON: 07/25/2024 TECHNIQUE: Multiplanar grayscale and color Doppler images were obtained in a testicular/scrotal ultra sound. Spectral analysis of the Doppler waveforms of the testicles were performed. FINDINGS: Right testicle: Normal in echogenicity. No focal mass. Normal internal flow. The right testicle fabiola ures 4.5 x 2.7 x 3.4 cm with volume of 21 mL. Left testicle: Normal in echogenicity. No focal mass. Normal internal flow. The left testicle measur es 3.7 x 2 x 2.8 cm with volume of 11 mL. The size discrepancy is probably related to measurement technique as there was more symmetry on the prior exam. Right epididymis. No epididymal cyst. Normal internal flow. Left epididymis. No epididymal cyst. Normal internal flow. No significant hydroceles. No varicocele. IMPRESSION: No significant scrotal/testicular abnormality Bilateral testicular blood flow.
--- NOTE | 2024-11-26 22:15 | RAD REPORT ---
EXAMINATION: CT ABDOMEN AND PELVIS WITHOUT CONTRAST-stone protocol CLINICAL INDICATION: Male, 64 years old.rlq/right groin pain TECHNIQUE: CT abdomen and pelvis was performed with stone protocol, without IV contrast, as per depar tment protocol. Axial, sagittal and coronal reconstructions were obtained. One or more of the following dose reduction techniques were used: Automated exposure control, adjustment of the mA and/o r kV according to the patient size, and/or iterative reconstruction. Unless otherwise specified, incidental findings do not require dedicated imaging follow-up. [id number]. IV CONTRAST: Not administered. COMPARISON: 09/28/2022 FINDINGS: The lack of intravenous contrast limits the sensitivity of this exam for evaluation of solid visceral organs, vascular structures, and retroperitoneum. LOWER CHEST: No acute process identified.No significant pericardial effusion. Small hiatal hernia wit h circumferential thickening of the esophagus which could reflect esophagitis. UPPER GI: No significant abnormality. LIVER: Surgical clips near the IVC. GALLBLADDER/BILE DUCTS: No biliary ductal dilatation.? PANCREAS: No mass, ductal dilation, or anthony-pancreatic fluid. SPLEEN: Unremarkable. ADRENALS: No adrenal masses. KIDNEYS AND URETERS: No hydronephrosis.Low density and/or too small to characterize renal lesions whi ch are statistically benign.Nonobstructing renal calculi.No ureteral calculi. ABDOMINAL AORTA AND OTHER VESSELS: Mild atherosclerotic changes. PERITONEUM: No abnormal free fluid. No free air. LYMPH NODES: No pathologic lymphadenopathy. ABDOMINAL WALL: Fat containing inguinal hernias. SMALL BOWEL/COLON: Small bowel has normal course and caliber. No colonic wall thickening or pericolon ic inflammatory changes.Normal appendix. URINARY BLADDER: Underdistended but grossly unremarkable. REPRODUCTIVE ORGANS: No pathologic process. Postprocedural changes of the prostate. MUSCULOSKELETAL: Epidural pain pump. ADDITIONAL FINDINGS: None. IMPRESSION: No acute findings within the abdomen or pelvis. Bilateral nonobstructing renal calculi. Ancillary findings as noted above.
[2024-11-26 22:45] LABS: Specific Gravity 1.022 (1.005-1.030); Sqamous Epithelial None Seen /HPF (None Seen); Urine Bacteria None Seen /HPF (<20); Urine Bilirubin NEGATIVE (Negative); Urine Blood Negative (Negative); Urine Clarity Clear (Clear); Urine Color Light-Yellow (Yellow); Urine Culture Reflex Order NOT NEEDED; Urine Glucose NEGATIVE (Negative); Urine Ketones NEGATIVE (Negative); Urine Micro Reflex YN NO BILL MICROSCOPIC; Urine Nitrite NEGATIVE (Negative); Urine Protein NEGATIVE (Negative); Urine RBC <5 /HPF (None Seen); Urine Urobilinogen Normal (Normal); Urine WBC <5 /HPF (<5); Urine pH 5.5 (5.0-7.0)
--- NOTE | 2024-11-26 22:54 | EDPHYS ---
Physician Documentation [facility] Name: Vikash Forbes Jr Age: 64 yrs Sex: Male : 1960 Arrival Date: 11/26/2024 Time: 20:14 Bed 26 Private MD: ED Physician Blayne Bernal HPI: 11/26 20:25 This 64 yrs old Male presents to ER via Ambulatory with complaints of cp Testicular Pain, Pelvic Pain. 20:25 The patient presents with right groin and right testicle pain. Onset: The cp symptoms/episode began/occurred suddenly became worse today about 1200. Associated signs and symptoms: Pertinent negatives: constipation, dysuria, fever, hematuria, vomiting. Patient reports history of hernia with chronic mild pain. Right groin and testicle pain suddenly worse today. unknown cause. Historical: - Allergies: 20:55 Iodex; lg3 20:55 Iodinated Contrast Media - IV Dye; lg3 - Home Meds: 20:55 losartan oral [Active]; atorvastatin oral [Active]; gabapentin Oral [Active]; lg3 hydrocodone-acetaminophen 10-325 mg Oral tab [Active]; morphine 10-325 mg Oral tab [Active]; - PMHx: 20:55 Back pain; High Cholesterol; Hypertension; Lymphadema; lg3 - PSHx: 20:55 Cholecystectomy; lg3 - Immunization history:: Adult Immunizations up to date. - Infectious Disease History:: Denies. - Social history:: Smoking status: Patient denies any tobacco usage or history of. Patient/guardian denies using alcohol, street drugs. ROS: 20:30 Constitutional: Negative for body aches, chills, fever, poor PO intake, cp 20:30 Eyes: Negative for injury, pain, redness, and discharge, cp 20:30 ENT: Negative for drainage from ear(s), ear pain, sore throat, difficulty swallowing, difficulty handling secretions, 20:30 Cardiovascular: Negative for chest pain, palpitations, 20:30 Respiratory: Negative for cough, shortness of breath, wheezing, 20:30 Abdomen/GI: Negative for vomiting, diarrhea, constipation, 20:30 Back: Negative for injury or acute deformity, decreased range of motion, 20:30 : Positive for testicular pain right groin pain, Negative for urinary symptoms, hematuria, flank pain, burning with urination, penile pain, 20:30 Neuro: Negative for altered mental status, dizziness, headache, numbness, weakness, 20:30 All other systems are negative, Exam: 20:35 Constitutional: The patient appears in no acute distress, alert, awake, non-toxic, well cp developed, well nourished, uncomfortable, 20:35 Head/Face: Normocephalic, atraumatic. cp 20:35 Eyes: Periorbital structures: appear normal, Conjunctiva: normal, no exudate, no injection, Sclera: no appreciated abnormality, Lids and lashes: appear normal, bilaterally, 20:35 ENT: External ear(s): are unremarkable, Nose: is normal, Mouth: Lips: moist, Oral mucosa: moist, Posterior pharynx: Airway: no evidence of obstruction, patent, 20:35 Chest/axilla: Inspection: normal, 20:35 Cardiovascular: Rate: normal, 20:35 Respiratory: the patient does not display signs of respiratory distress, Respirations: normal, no use of accessory muscles, no retractions, labored breathing, is not present, Breath sounds: are clear throughout, no decreased breath sounds, no stridor, no wheezing, 20:35 Abdomen/GI: Inspection: abdomen appears normal, Bowel sounds: active, all quadrants, Palpation: abdomen is soft and non-tender, in all quadrants, 20:35 Back: CVA tenderness, is absent, 20:35 : Male external genitalia: tenderness, of the right testicle is noted, that is moderate, pain, tenderness to palpation right groin, 20:35 Skin: cellulitis, is not appreciated, no rash present. 20:35 Neuro: Orientation: to person, place \T\ time. Mentation: is normal, Motor: moves all fours, strength is normal, Vital Signs: 20:30 BP 116 / 76; Pulse 78; Resp 16 S; Temp 98.2(O); Pulse Ox 99% on R/A; Weight 90.72 kg lg3 (R); Height 5 ft. 11 in. (R); Pain 10/10; 21:26 BP 121 / 72; Pulse 73; Resp 16; Pulse Ox 98% on R/A; jb4 22:20 BP 120 / 61; Pulse 66; Resp 16; Pulse Ox 97% on R/A; jb4 22:35 Pain 0/10; jb4 20:30 Body Mass Index 27.89 (90.72 kg, 180.34 cm) lg3 20:30 Pain Scale: Adult lg3 22:35 Pain Scale: Adult jb4 MDM: 20:22 Medical Screening Exam initiated cp 21:00 Differential diagnosis: appendicitis, UTI, prostatitis, urethritis, testicular torsion, cp kidney stone, orchitis, epididymitis. 22:52 Data reviewed: vital signs, nurses notes, lab test result(s), radiologic studies, CT cp scan, ultrasound, and as a result, I will discharge patient. 22:52 I considered the following discharge prescriptions or medication management in the emergency department Medications were administered in the Emergency Department. See MAR. Care significantly affected by the following chronic conditions: Hypertension, chronic back pain. Counseling: I had a detailed discussion with the patient and/or guardian regarding the historical points, exam findings, and any diagnostic results supporting the discharge/admit diagnosis, lab results, radiology results, to return to the emergency department if symptoms worsen or persist or if there are any questions or concerns that arise at home. Response to treatment: the patient's symptoms have mildly improved after treatment, and as a result, I will discharge patient. 11/26 20:23 Order name: Urinalysis W/Microscopic; Complete Time: :53 11/26 22:54 Interpretation: Reviewed. 11/27 19: Order name: CBC with Diff; Complete Time: 21:12 11/26 21:29 Interpretation: Normal except: HGB 13.5; HCT 38.4. 11/26 20:23 Order name: CMP; Complete Time: :27 11/26 21:28 Interpretation: Normal except: GLUC 162; BUN 31; CRE 1.60; GFR 48; GLOB 4.0; A/G 0.9. 11/26 20:23 Order name: Lipase; Complete Time: 21:27 11/26 21:29 Interpretation: Reviewed. 11/26 20: Order name: US Scrotum Testicles; Complete Time: 21:27 11/26 21:28 Interpretation: Report reviewed. 11/26 20:27 Order name: CT Stone Protocol; Complete Time: 22:21 11/26 22:23 Interpretation: Report reviewed. 11/27 19:23 Order name: IV Saline Lock; Complete Time: 20:54 cp 11/26 20:23 Order name: Labs collected and sent; Complete Time: 20:54 cp Administered Medications: 21:15 Drug: fentaNYL (PF) IVP 50 mcg IVP once Route: IVP; Site: right antecubital; jb4 22:35 Follow up: Pain 0/10 Adult; Response: No adverse reaction; Marked relief of symptoms; jb4 Pain is decreased; RASS: Alert and Calm (0) 22:35 CANCELLED (Patient Refused): mg 10 mg IVP once jb4 23:20 Drug: Methocarbamol PO 750 mg PO once Route: PO; jb4 23:20 Follow up: Response: Medication administered at discharge. jb4 23:20 Drug: Ketorolac IVP 10 mg 10 mg IVP once Route: IVP; Site: right antecubital; jb4 23:20 Follow up: Response: Medication administered at discharge. jb4 Disposition Summary: 11/26/24 22:53 Discharge Ordered Notes: Location: Home cp Problem: new cp Symptoms: have improved cp Condition: Stable cp Diagnosis - Right testicular pain cp - Bilateral inguinal hernia, without obstruction or gangrene, not specified as cp recurrent Followup: cp - With: Turner Singleton MD - When: 2 - 3 days - Reason: Recheck today's complaints Discharge Instructions: - Discharge Summary Sheet cp - Inguinal Hernia, Adult, [id number] cp - Inguinal Hernia, Adult cp - Laparoscopic Inguinal Hernia Repair, Adult cp - Laparoscopic Inguinal Hernia Repair, Adult, Care After cp Forms: - Medication Reconciliation Form cp - Antibiotic Education cp - Prescription Opioid Use cp - Patient Portal Instructions cp - Leadership Thank You Letter cp Prescriptions: - Celebrex 200 mg Oral Capsule - take 1 capsule ORAL route once daily As needed take with food; 20 capsule; cp Refills: 0, Product Selection Permitted Signatures: Dispatcher [employer] EDMS Evan Johnson PA PA cp Adria Schmidt RN RN jb4 Marlena Whitney RN RN lg3 Corrections: (The following items were deleted from the chart) 21:32 21:13 Abdomen Pelvis W/Wo Con+CT.RAD.BRZ ordered. EDMS EDMS 22:35 22:24 Ketorolac IVP 10 mg 10 mg IVP once ordered. cp jb4
--- NOTE | 2024-11-26 22:54 | ER ---
Nurse's Notes [facility] Name: Vikash Forbes Jr Age: 64 yrs Sex: Male : 1960 Arrival Date: 11/26/2024 Time: 20:14 Bed 26 Private MD: Diagnosis: Right testicular pain;Bilateral inguinal hernia, without obstruction or gangrene, not specified as recurrent Presentation: 11/26 20:30 Chief complaint: Patient states: right inguinal hernia for many years with minimal lg3 pain. new onset pain 10/10 around 1200 to right groin radiating to right testicle. Coronavirus screen: Client denies travel out of the [place] in the last 14 days. At this time, the client does not indicate any symptoms associated with coronavirus-19. Ebola Screen: No symptoms or risks identified at this time. Initial Sepsis Screen: Does the patient meet any 2 criteria? No. Patient's initial sepsis screen is negative. Does the patient have a suspected source of infection? No. Patient's initial sepsis screen is negative. Risk Assessment: Do you want to hurt yourself or someone else? Patient reports no desire to harm self or others. Onset of symptoms was November 26, 2024. 20:30 Method Of Arrival: Ambulatory lg3 20:30 Acuity: ALMA 3 lg3 Triage Assessment: 20:55 General: Appears in no apparent distress. comfortable, Behavior is calm, cooperative. lg3 Pain: Complains of pain in groin, right femoral area and right inguinal area Pain currently is 10 out of 10 on a pain scale. EENT: No deficits noted. No signs and/or symptoms were reported regarding the EENT system. Neuro: No deficits noted. Willett Agitation-Sedation Scale (RASS): 0 - Alert and Calm Level of Consciousness is awake, alert, obeys commands, Oriented to person, place, time, situation. Cardiovascular: No deficits noted. Denies chest pain, shortness of breath, Capillary refill < 3 seconds Clubbing of nail beds is absent JVD is absent Patient's skin is warm and dry. Respiratory: No deficits noted. Airway is patent Respiratory effort is even, unlabored, Respiratory pattern is regular, symmetrical. GI: No signs and/or symptoms were reported involving the gastrointestinal system. Abdomen is round non-distended. : Reports pain scrotum. Derm: No deficits noted. No signs and/or symptoms reported regarding the dermatologic system. Skin is intact, is healthy with good turgor, Skin is dry, Skin is normal, Skin temperature is warm. Musculoskeletal: Circulation, motion, and sensation intact. Range of motion: intact in all extremities. Historical: - Allergies: 20:55 Iodex; lg3 20:55 Iodinated Contrast Media - IV Dye; lg3 - Home Meds: 20:55 losartan oral [Active]; atorvastatin oral [Active]; gabapentin Oral [Active]; lg3 hydrocodone-acetaminophen 10-325 mg Oral tab [Active]; morphine 10-325 mg Oral tab [Active]; - PMHx: 20:55 Back pain; High Cholesterol; Hypertension; Lymphadema; lg3 - PSHx: 20:55 Cholecystectomy; lg3 - Immunization history:: Adult Immunizations up to date. - Infectious Disease History:: Denies. - Social history:: Smoking status: Patient denies any tobacco usage or history of. Patient/guardian denies using alcohol, street drugs. Screenin:[address] [facility] ED Fall Risk Assessment (Adult) History of falling in the last 3 months, jb4 including since admission No falls in past 3 months (0 pts) Confusion or Disorientation No (0 pts) Intoxicated or Sedated No (0 pts) Impaired Gait No (0 pts) Mobility Assist Device Used No (0 pt) Altered Elimination No (0 pt) Score/Fall Risk Level 0 - 2 = Low Risk Oriented to surroundings, Maintained a safe environment. Abuse screen: Denies threats or abuse. Nutritional screening: No deficits noted. Tuberculosis screening: No symptoms or risk factors identified. Assessment: 21:26 Reassessment: Patient appears in no apparent distress at this time. Patient and/or jb4 family updated on plan of care and expected duration. Pain level reassessed. Patient is alert, oriented x 3, equal unlabored respirations, skin warm/dry/pink. 22:20 Reassessment: Patient appears in no apparent distress at this time. Patient and/or jb4 family updated on plan of care and expected duration. Pain level reassessed. Patient is alert, oriented x 3, equal unlabored respirations, skin warm/dry/pink. 23:20 Reassessment: Patient appears in no apparent distress at this time. Patient and/or jb4 family updated on plan of care and expected duration. Pain level reassessed. Patient is alert, oriented x 3, equal unlabored respirations, skin warm/dry/pink. Vital Signs: 20:30 BP 116 / 76; Pulse 78; Resp 16 S; Temp 98.2(O); Pulse Ox 99% on R/A; Weight 90.72 kg lg3 (R); Height 5 ft. 11 in. (R); Pain 10/10; 21:26 BP 121 / 72; Pulse 73; Resp 16; Pulse Ox 98% on R/A; jb4 22:20 BP 120 / 61; Pulse 66; Resp 16; Pulse Ox 97% on R/A; jb4 22:35 Pain 0/10; jb4 20:30 Body Mass Index 27.89 (90.72 kg, 180.34 cm) lg3 20:30 Pain Scale: Adult lg3 22:35 Pain Scale: Adult jb4 ED Course: 20:19 Patient arrived in ED. jj6 20:20 Evan Johnson PA is PHCP. cp 20:20 Blayne Bernal MD is Attending Physician. cp 20:55 Triage completed. lg3 20:55 Arm band placed on right wrist. lg3 21:01 CBC with Diff Sent. jb4 21:01 CMP Sent. jb4 21:01 Lipase Sent. jb4 21:09 US Scrotum Testicles In Process Unspecified. EDMS 21:59 CT Stone Protocol In Process Unspecified. EDMS 22:20 Adria Schmidt, RN is Primary Nurse. jb4 22:20 Patient has correct armband on for positive identification. Placed in gown. Bed in low jb4 position. Call light in reach. Side rails up X 1. Provided Education on: plan of care. 22:36 Urinalysis W/Microscopic Sent. jb4 22:52 Turner Singleton MD is Referral Physician. cp 23:20 No provider procedures requiring assistance completed. IV discontinued, intact, jb4 bleeding controlled, No redness/swelling at site. Pressure dressing applied. Administered Medications: 21:15 Drug: fentaNYL (PF) IVP 50 mcg IVP once Route: IVP; Site: right antecubital; jb4 22:35 Follow up: Pain 0/10 Adult; Response: No adverse reaction; Marked relief of symptoms; jb4 Pain is decreased; RASS: Alert and Calm (0) 22:35 CANCELLED (Patient Refused): mg 10 mg IVP once jb4 23:20 Drug: Methocarbamol PO 750 mg PO once Route: PO; jb4 23:20 Follow up: Response: Medication administered at discharge. jb4 23:20 Drug: Ketorolac IVP 10 mg 10 mg IVP once Route: IVP; Site: right antecubital; jb4 23:20 Follow up: Response: Medication administered at discharge. jb4 Medication: 23:20 VIS not applicable for this client. jb4 Outcome: 22:53 Discharge ordered by . michelle 23:20 Discharged to home ambulatory, with family, jb4 23:20 Condition: stable 23:20 Discharge instructions given to patient, Instructed on discharge instructions, follow up and referral plans. medication usage, Demonstrated understanding of instructions, follow-up care, medications, Prescriptions given X 1, 23:21 Patient left the ED. jb4 Signatures: Dispatcher [employer] EDMS Evan Johnson PA PA cp Bryson, James RN RN jb4 Marlena Whitney RN RN lg3 Nani Carrera jj6
[2024-11-26] MEDS ORDERED: methocarbamoL 750 MG TAB ONE (23:16)
[2024-11-26] MEDS ORDERED: KETOROLAC 30 MG/ML INJ ONE (23:16)
[2024-11-27 00:12] VITALS: BP 120/61; O2SAT 97
[2024-11-27 00:13] VITALS: TEMP 98.2
== END 2024-11-26 23:21 | disposition home or self-care (01) ==
LOC: ER 20:14
DX: K40.20 Bilateral inguinal hernia, without obstruction or gangrene, not specified as recurrent (principal)
CPT/HCPCS: 85025; 81001; 36415; 83690; 80053; 76377; 74176; 76870; 96375; 96374; 99284; J3010